=== PATIENT | male | born 1950 | race Caucasian/White ===

== ENCOUNTER → 2020-03-05 11:23 | Outpatient (CLI) | payer OTHER, MEDICAID, SELFPAY ==
--- NOTE | 2020-03-05 11:28 | DI.RAD.S_ITS ---
PROCEDURE: XR THORACIC SPINE 3V INDICATIONS: update imaging TECHNIQUE: 3 views of the thoracic spine were acquired. COMPARISON: None. FINDINGS: Bones: No fractures or dislocations. No suspicious bony lesions. 12 pairs of ribs are noted, and appear intact where visualized. There is leftward curvature of the thoracic spine. No vertebral body height loss. No subluxation. Anterior osteophytes are seen at multiple levels. Soft tissues: No paravertebral stripe thickening. IMPRESSION: 1. 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 2. Leftward curvature of the thoracic spine. Dictated by: Dago Benson M.D. on 03/05/2020 at 12:40 Approved by: Dago Benson M.D. on 03/05/2020 at 12:42
== END ==
PROVIDERS: Referring Provider Physical Medicine & Rehabilitation; Visit Provider Physical Medicine & Rehabilitation
DX: R07.81 Pleurodynia (principal); M47.814 Spondylosis without myelopathy or radiculopathy, thoracic region; M41.20 Other idiopathic scoliosis, site unspecified; M47.816 Spondylosis without myelopathy or radiculopathy, lumbar region; M48.00 Spinal stenosis, site unspecified
CPT/HCPCS: 72072; 99214

== ENCOUNTER 2020-03-12 17:18 | Emergency (ER) | payer OTHER, MEDICAID, SELFPAY ==
[2020-03-12 17:24] VITALS: BP 211/101; PULSE 129; RESP 24; TEMP 37.1; O2SAT 99
[2020-03-12] MEDS: OXYCODONE/ACETAMINOPHEN 5/325 TABLET 2 TAB PO (18:38)
[2020-03-12] MEDS: KETOROLAC 60 MG/2 ML VIAL 30 MG IM (18:38)
[2020-03-12 19:06] VITALS: BP 178/97; PULSE 107; RESP 16; O2SAT 98
--- NOTE | 2020-03-12 19:07 | ED.DENTAL ---
HPI - Dental/Oral General Chief complaint: Dental/Oral Stated complaint: [place] Hanging, Lump On Jaw, Didn't Sleep Time Seen by Provider: 03/12/20 18:10 Source: patient Mode of arrival: Ambulatory History of Present Illness HPI Narrative: 69-year-old gentleman with a history of hypertension presents with severe pain to a tooth that 3 years ago was crowned. Pain started yesterday and has progressively gotten worse. He is exquisitely tender to any type of touch, heat, cold and the pain radiates to his upper maxilla and back to his temporomandibular joint. There is no obvious swelling but he does report and on taste coming from the area. He describes no fevers, he has been having difficulty eating due to pain. No abdominal pain, vomiting, diarrhea. He has an appointment scheduled with seeing our dental clinic in the next 1-2 days Related Data Home Medications Medication Instructions Recorded Confirmed amlodipine 5 mg tablet 5 mg PO DAILY 03/05/20 lisinopril 40 mg tablet 40 mg PO DAILY 03/05/20 Previous Rx's Medication Instructions Recorded hydroxyzine pamoate 25 mg capsule 25 mg PO BID PRN #60 cap 03/05/20 meloxicam 7.5 mg tablet 15 mg PO BID #60 tab 03/05/20 amoxicillin 500 mg PO TID #21 cap 03/12/20 oxycodone-acetaminophen 1 tab PO Q6H PRN 7 Days #20 tab 03/12/20 Allergies Allergy/AdvReac Type Severity Reaction Status Date / Time No Known Drug Allergies Allergy Unverified 03/05/20 13:38 Review of Systems Review of Systems ROS Unobtainable: All systems reviewed & are unremarkable except as noted in HPI and below Patient History Medical History Facet arthropathy, lumbar Fractures High blood cholesterol High blood pressure Multilevel foraminal stenosis Scoliosis (and kyphoscoliosis), idiopathic Social History Smoking Status: Never smoker Smoking Status: Never smoker Exam Narrative Exam Narrative: General: Alert appropriate in no acute distress HEENT: Tooth 3. With a crown in place exquisitely tender to touch, no surrounding abscess. Tender over the right maxillary surface and into the right TMJ without fluctuance or erythema. He has mild right submandibular adenopathy Respiratory: Able to speak in full sentences, no obvious respiratory distress Skin: No obvious rashes, warm and dry Neurologic: Grossly intact no obvious asymmetries or abnormalities Psych, appropriate insight and affect, cooperative Initial Vital Signs Initial Vital Signs: Vital Signs Temperature 98.8 F 03/12/20 17:24 Pulse Rate 129 H 03/12/20 17:24 Respiratory Rate 24 03/12/20 17:24 Blood Pressure 211/101 H 03/12/20 17:24 Pulse Oximetry 99 03/12/20 17:24 Course Orders Ordered: Discontinued Medications Ketorolac Tromethamine (Ketorolac 60 Mg/2 Ml Vial) 30 mg IM NOW ONE Stop: 03/12/20 18:34 Last Admin: 03/12/20 18:38 Dose: 30 mg Documented by: STEFF Oxycodone/Acetaminophen (Oxycodone/Acetaminophen 5/325 Tablet) 2 tab PO NOW ONE Stop: 03/12/20 18:34 Last Admin: 03/12/20 18:38 Dose: 2 tab Documented by: STEFF Vital Signs Vital signs: Vital Signs - 8 hr 03/12/20 17:24 03/12/20 19:06 Temperature 98.8 F Pulse Rate 129 H 107 H Respiratory Rate 24 16 Blood Pressure 211/101 H 178/97 H Pulse Oximetry 99 98 MDM - Dental/Oral MDM Narrative Medical decision making narrative: Dental pain tooth 3. Suggesting infection with root damage given the exquisite tenderness to any type of touch, heat, cold. Significantly elevated blood pressure and heart rate secondary to the severity of his pain. After treating his pain vital signs did improve slightly. He notes that he did take his usual blood pressure medications today. He started on amoxicillin and given a prescription for Percocet and encouraged to keep his appointment with see [facility] scheduled Discharge Plan Departure Patient Disposition: Home Clinical Impression: Toothache Instructions: DI for Dental Pain Activity Restrictions/Additional Instructions: Using 400 mg of ibuprofen (2 [id number] pills) and 1 Tylenol every 6 hours can be very helpful in controlling pain. For severe pain you can use to ibuprofen and 1 Percocet and for over the top pain you can use 2 Percocet. Please complete the course of amoxicillin Absolutely keep your appointment with see [facility] to definitively diagnose and treat your tooth pain. 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 Prescriptions: New amoxicillin 500 mg capsule 500 mg PO TID Qty: 21 RF: 0 oxycodone-acetaminophen 5-325 mg tablet 1 tab PO Q6H PRN (Reason: pain) 7 Days Qty: 20 RF: 0 No Action lisinopril 40 mg tablet 40 mg PO DAILY RF: 0 amlodipine 5 mg tablet 5 mg PO DAILY RF: 0 hydroxyzine pamoate [Vistaril] 25 mg capsule 25 mg PO BID PRN (Reason: pain (scale score 4-6)) Qty: 60 RF: 1 meloxicam 7.5 mg tablet 15 mg PO BID Qty: 60 RF: 2 Referrals: Katya Stevens MD [Primary Care Provider] -
== END 2020-03-12 19:18 | disposition home or self-care (01) ==
PROVIDERS: Emergency Provider Emergency Medicine; PCP Internal Medicine
DX: K08.89 Other specified disorders of teeth and supporting structures (principal); I10 Essential (primary) hypertension
CPT/HCPCS: 96372; 99281; 99283; J1885

== ENCOUNTER 2020-03-14 20:44 | Emergency (ER) | payer OTHER, MEDICAID, SELFPAY ==
[2020-03-14 20:51] VITALS: BP 198/93; PULSE 98; RESP 18; TEMP 36.7; O2SAT 98; BMI 26.9
--- NOTE | 2020-03-14 21:35 | ED.BACK ---
HPI - Back Pain/Injury General Chief Complaint: Back Pain/Injury Stated Complaint: Low Back Pain Time Seen by Provider: 03/14/20 20:59 Source: patient and EMS Mode of arrival: EMS Limitations: no limitations History of Present Illness HPI Narrative: 69-year-old male who is here for her left sign in or back discomfort. He states that it feels like he is having muscle cramps. No urinary symptoms. Has had back discomfort the past and does see a specialist for this. He states that he did fall to his knees earlier today but no other injuries. Has not taken anything for symptoms prior to arrival Related Data Home Medications Medication Instructions Recorded Confirmed amlodipine 5 mg tablet 5 mg PO DAILY 03/05/20 lisinopril 40 mg tablet 40 mg PO DAILY 03/05/20 Previous Rx's Medication Instructions Recorded hydroxyzine pamoate 25 mg capsule 25 mg PO BID PRN #60 cap 03/05/20 meloxicam 7.5 mg tablet 15 mg PO BID #60 tab 03/05/20 amoxicillin 500 mg PO TID #21 cap 03/12/20 oxycodone-acetaminophen 1 tab PO Q6H PRN 7 Days #20 tab 03/12/20 cyclobenzaprine 10 mg PO TID PRN #14 tab 03/14/20 Allergies Allergy/AdvReac Type Severity Reaction Status Date / Time No Known Drug Allergies Allergy Unverified 03/05/20 13:38 Review of Systems Constitutional Constitutional: Denies fever(s) Cardiovascular Cardiovascular: Denies chest pain and Denies dyspnea Respiratory Respiratory: Denies dyspnea Musculoskeletal Musculoskeletal: Reports back pain and Denies tingling Integumentary/Breasts Skin/Breast: Denies rash Neurologic Neurologic: Denies tingling and Denies paresthesias Hematologic/Lymphatic On Anticoagulants: No Allergic/Immunologic Allergic/Immunologic: Denies urticaria Patient History Medical History Facet arthropathy, lumbar Fractures High blood cholesterol High blood pressure Multilevel foraminal stenosis Scoliosis (and kyphoscoliosis), idiopathic Social History Smoking Status: Never smoker Smoking Status: Never smoker Substance Use Type: does not use Exam Initial Vital Signs Initial Vital Signs: Vital Signs Temperature 98.0 F 03/14/20 20:51 Pulse Rate 98 H 03/14/20 20:51 Respiratory Rate 18 03/14/20 20:51 Blood Pressure 198/93 H 03/14/20 20:51 Pulse Oximetry 98 03/14/20 20:51 Const General: cooperative Limitations: mental status not altered HENMT Head: normal to inspection and normocephalic Back/Spine/Pelvis Thoracic/Lumbar Spine: paraspinal tenderness (Left side with muscle fullness), No thoracic spinal tenderness and No lumbar spinal tenderness Skin Lesions: no lesions Rashes: no rashes Neuro General: patient alert and patient awake Extrem General: capillary refill normal Psych Appearance: grossly normal Course Orders Ordered: Discontinued Medications Cyclobenzaprine HCl (Cyclobenzaprine 10 Mg Tablet) 10 mg PO NOW ONE Stop: 03/14/20 21:36 Last Admin: 03/14/20 21:44 Dose: 10 mg Documented by: CORINNA Cyclobenzaprine HCl (Cyclobenzaprine 10 Mg Tablet) 10 mg PO NOW ONE Stop: 03/14/20 21:50 Last Admin: 03/14/20 21:52 Dose: Not Given Documented by: CORINNA Cyclobenzaprine HCl (Cyclobenzaprine 10 Mg Prepack) 1 bottle MISC SEEINSTR ONE Stop: 03/14/20 22:38 Last Admin: 03/14/20 22:51 Dose: 1 bottle Documented by: GENNA Hydromorphone HCl (Hydromorphone 1 Mg Inj) 1 mg IV NOW ONE Stop: 03/14/20 21:36 Last Admin: 03/14/20 21:45 Dose: 1 mg Documented by: CORINNA Vital Signs Vital signs: Vital Signs - 8 hr 03/14/20 20:51 03/14/20 21:59 03/14/20 22:00 Temperature 98.0 F Pulse Rate 98 H 78 87 Respiratory Rate 18 Blood Pressure 198/93 H Pulse Oximetry 98 98 98 03/14/20 22:51 03/14/20 22:52 03/14/20 22:55 Temperature Pulse Rate 92 H 92 H 89 Respiratory Rate 14 Blood Pressure 163/90 H Pulse Oximetry 97 96 99 MDM - Back Pain/Injury MDM Narrative Medical decision making narrative: Acute on chronic lower back pain with tenderness along the paraspinal region on the left with muscle fullness. Low suspicion for fracture. Low suspicion for cauda quadrant. Was given medication here in the ER and he did report some improvement of symptoms he was able to ambulate to the bathroom. He was given return precautions and follow-up instructions. He expressed understanding and agreement. Discharge Plan Departure Patient Disposition: Home Clinical Impression: Back muscle spasm Instructions: DI for Back Spasm Activity Restrictions/Additional Instructions: Continue all of your medications as directed. The prescription you were given this evening should help with your symptoms. Contact your primary provider for follow-up. Return emergency department for any new or worsening symptoms Prescriptions: New cyclobenzaprine 10 mg tablet 10 mg PO TID PRN (Reason: muscle spasm) Qty: 14 RF: 0 No Action amoxicillin 500 mg capsule 500 mg PO TID Qty: 21 RF: 0 oxycodone-acetaminophen 5-325 mg tablet 1 tab PO Q6H PRN (Reason: pain) 7 Days Qty: 20 RF: 0 lisinopril 40 mg tablet 40 mg PO DAILY RF: 0 amlodipine 5 mg tablet 5 mg PO DAILY RF: 0 hydroxyzine pamoate [Vistaril] 25 mg capsule 25 mg PO BID PRN (Reason: pain (scale score 4-6)) Qty: 60 RF: 1 meloxicam 7.5 mg tablet 15 mg PO BID Qty: 60 RF: 2 Referrals: Katya Stevens MD [Primary Care Provider] -
[2020-03-14] MEDS: CYCLOBENZAPRINE 10 MG TABLET PO (21:44)
[2020-03-14] MEDS: HYDROMORPHONE 1 MG INJ IV (21:45)
[2020-03-14 21:59] VITALS: PULSE 78; O2SAT 98
[2020-03-14 22:00] VITALS: PULSE 87; O2SAT 98
[2020-03-14 22:51] VITALS: PULSE 92; O2SAT 97
[2020-03-14] MEDS: CYCLOBENZAPRINE 10 MG PREPACK 1 BOTTLE MISC (22:51)
[2020-03-14 22:52] VITALS: BP 163/90; PULSE 92; O2SAT 96
[2020-03-14 22:55] VITALS: PULSE 89; RESP 14; O2SAT 99
== END 2020-03-14 23:25 | disposition home or self-care (01) ==
PROVIDERS: Emergency Provider Emergency Medicine; PCP Internal Medicine
DX: M62.830 Muscle spasm of back (principal); I10 Essential (primary) hypertension
CPT/HCPCS: 96374; 99281; 99284; J1170

== ENCOUNTER 2020-03-15 06:50 | Emergency (ER) | payer OTHER, MEDICAID, SELFPAY ==
[2020-03-15 07:00] VITALS: BP 177/99; PULSE 98; RESP 20; TEMP 36.9; O2SAT 98; BMI 26.7
--- NOTE | 2020-03-15 07:11 | ED.BACK ---
HPI - Back Pain/Injury General Chief Complaint: Back Pain/Injury Stated Complaint: Left lower back pain Time Seen by Provider: 03/15/20 07:05 Source: patient, EMS and old records reviewed Limitations: no limitations History of Present Illness HPI Narrative: This is a 69-year-old male who comes to the emergency department with acute on chronic left lower back pain. Patient states he has had symptoms for many years. Typically his pain sort of comes up his leg from the upper leg into the buttock hip area and into the back. Patient states that he did move multiple cinder blocks yesterday which he thinks exacerbated his symptoms. They have been much more controlled until yesterday. He was seen last night he had a shot of pain medication and was given oral muscle relaxer. He states the pain medication here was very helpful, he did not have much improvement with oral muscle relaxer at home. He states he does not typically take pain medication on a regular basis. He has been following with Dr. espana and is scheduled to have a nerve ablation but this has been delayed for the past 9 months secondary to the pandemic. Patient states that he has not had fevers, no chills, no cold cough or congestion, he denies any chest pain or shortness breath, he denies any GI or urinary symptoms. Denies any incontinence of bowel or bladder. He denies any numbness, tingling or weakness. He states he was unable to sleep overnight. He states this is typical location of his pain and typical type symptoms but more intense than they have been recently. He has had episodes similar to this in the past and defers any further workup. Related Data Home Medications Medication Instructions Recorded Confirmed amlodipine 5 mg tablet 5 mg PO DAILY 03/05/20 lisinopril 40 mg tablet 40 mg PO DAILY 03/05/20 Previous Rx's Medication Instructions Recorded hydroxyzine pamoate 25 mg capsule 25 mg PO BID PRN #60 cap 03/05/20 meloxicam 7.5 mg tablet 15 mg PO BID #60 tab 03/05/20 amoxicillin 500 mg PO TID #21 cap 03/12/20 oxycodone-acetaminophen 1 tab PO Q6H PRN 7 Days #20 tab 03/12/20 cyclobenzaprine 10 mg PO TID PRN #14 tab 03/14/20 oxycodone 5 mg PO Q6H PRN #10 tab 03/15/20 Allergies Allergy/AdvReac Type Severity Reaction Status Date / Time No Known Drug Allergies Allergy Unverified 03/05/20 13:38 Review of Systems Review of Systems ROS Unobtainable: All systems reviewed & are unremarkable except as noted in HPI and below Patient History Medical History Facet arthropathy, lumbar Fractures High blood cholesterol High blood pressure Multilevel foraminal stenosis Scoliosis (and kyphoscoliosis), idiopathic Social History Smoking Status: Never smoker Smoking Status: Never smoker Substance Use Type: does not use Exam Narrative Exam Narrative: GENERAL: Alert and oriented x three, well nourished male. HEENT: Head normocephalic, atraumatic, EOMI, pupils reactive, face symmetric, moist mucous membranes NECK: Supple, full range of motion CARDIOVASCULAR: Regular rate and rhythm without murmurs, rubs or gallops. RESPIRATORY: Breath sounds equal bilaterally, no wheezes rales or rhonchi. ABDOMEN: Soft, nontender. Normoactive bowel sounds all 4 quadrants. No guarding or rebound, rigidity, no mass : No CVA tenderness BACK: No cervical, thoracic or lumbar vertebral point tenderness. Patient has tenderness in left lower back. Patient has mildly range of motion. Muscle strength is 5/5 in lower extremities, DTRs are 2/4 and lower extremities. Dorsalis pedis and tibialis pulses are 2+ and lower extremities. Sensation is intact in the lower extremities. EXTREMITIES: Normal range of motion, no clubbing or edema. Neurovascularly intact NEUROLOGICAL: Cranial nerves II through XII grossly intact. Moving all extremities SKIN: Warm, dry, no petechiae, no rashes or lesions. Initial Vital Signs Initial Vital Signs: Vital Signs Temperature 98.5 F 03/15/20 07:00 Pulse Rate 98 H 03/15/20 07:00 Respiratory Rate 20 03/15/20 07:00 Blood Pressure 177/99 H 03/15/20 07:00 Pulse Oximetry 98 03/15/20 07:00 Course Orders Ordered: Discontinued Medications Hydromorphone HCl (Hydromorphone 1 Mg Inj) 1 mg IM NOW ONE Stop: 03/15/20 07:23 Last Admin: 03/15/20 07:28 Dose: 1 mg Documented by: Reevaluation(s) Reevaluation #1: Patient feels significantly improved. Ambulating in the room. Sitting up eating breakfast. Time: 08:14 Vital Signs Vital signs: Vital Signs - 8 hr 03/15/20 07:00 Temperature 98.5 F Pulse Rate 98 H Respiratory Rate 20 Blood Pressure 177/99 H Pulse Oximetry 98 MDM - Back Pain/Injury MDM Narrative Medical decision making narrative: 69-year-old male presents with acute on chronic left lower back pain similar to prior episodes in the past. Patient has been able to have definitive treatment secondary to the pandemic. He had exacerbating event yesterday after moving multiple cinder blocks and has had a flare of his chronic pain. Patient had relief yesterday here in the emergency department but symptoms returned. This is his 2nd visit in 12 hours and we discussed doing further workup but patient defers very politely. Patient had improvement here in the department discussed doing a short course of oral pain medication. [place] database shows he had #6 tabs on 03/11/19, patient had not filled any prior narcotics since 12/21/19, he was taking narcotics regularly from PCP and appears ER visits prior to this. Discharge Plan Departure Patient Disposition: Home Clinical Impression: Back pain Instructions: DI for Back Spasm Activity Restrictions/Additional Instructions: Follow up with your physician. I hope you are able to get your intervention with Dr. Santillan as soon as possible. Take pain medication as prescribed, this medication can make you sleepy do not drive, perform hazardous activities or make any major decisions while taking it. Narcotic pain medication will make you constipated, I recommend drinking plenty of fluids and taking a stool softener 1-2 times daily while taking narcotics until stools are soft and regular. Prescription to [facility] You may take this medication with the flexeril you were prescribed last night if you find it helpful. Return to the ER for fevers, rapidly worsening pain, new weakness, numbness or loss of sensation, inability to ambulate, passing out, new chest pain or shortness of breath or other new or concerning symptoms. Prescriptions: New oxycodone 5 mg tablet 5 mg PO Q6H PRN (Reason: pain) Qty: 10 RF: 0 No Action amoxicillin 500 mg capsule 500 mg PO TID Qty: 21 RF: 0 oxycodone-acetaminophen 5-325 mg tablet 1 tab PO Q6H PRN (Reason: pain) 7 Days Qty: 20 RF: 0 cyclobenzaprine 10 mg tablet 10 mg PO TID PRN (Reason: muscle spasm) Qty: 14 RF: 0 lisinopril 40 mg tablet 40 mg PO DAILY RF: 0 amlodipine 5 mg tablet 5 mg PO DAILY RF: 0 hydroxyzine pamoate [Vistaril] 25 mg capsule 25 mg PO BID PRN (Reason: pain (scale score 4-6)) Qty: 60 RF: 1 meloxicam 7.5 mg tablet 15 mg PO BID Qty: 60 RF: 2 Referrals: Katya Stevens MD [Primary Care Provider] -
[2020-03-15] MEDS: HYDROMORPHONE 1 MG INJ IM (07:28)
--- NOTE | 2020-03-15 07:28 | PC.NURSE ---
I went to give pt his IM injection and he was up and ambulating around the room with a steady gait.
--- NOTE | 2020-03-15 08:10 | PC.NURSE ---
Pt sitting up on the side of the bed eating breakfast.
[2020-03-15 08:18] VITALS: BP 196/99; PULSE 89; RESP 16; O2SAT 100
== END 2020-03-15 08:19 | disposition home or self-care (01) ==
PROVIDERS: Emergency Provider Emergency Medicine; PCP Internal Medicine
DX: M54.5 Low back pain (principal); I10 Essential (primary) hypertension
CPT/HCPCS: 96372; 99281; 99283; J1170

== ENCOUNTER 2020-03-19 22:43 | Emergency (ER) | payer OTHER, MEDICAID, SELFPAY ==
[2020-03-19 22:46] VITALS: BP 198/105; PULSE 83; O2SAT 99
[2020-03-19 22:50] VITALS: BP 198/105; PULSE 84; RESP 18; TEMP 36.7; O2SAT 99; BMI 25.0
[2020-03-19 23:00] VITALS: BP 148/87; PULSE 78; O2SAT 98
--- NOTE | 2020-03-19 23:02 | ED.BACK ---
HPI - Back Pain/Injury General Chief Complaint: Back Pain/Injury Stated Complaint: Back Pain Time Seen by Provider: 03/19/20 23:02 Source: patient and EMS Limitations: no limitations History of Present Illness HPI Narrative: This is a 69-year-old male comes emergency department with complaint of acute on chronic lower back pain. Patient states it is his typical left lower pain but also on the right side. He states it is radiating up his back as well he denies radiation down his legs patient states he has not had any additional exacerbating factors. He states he did take an oxycodone prior to arriving. He came via EMS which he states is because the starter on his car is not working. He denies fevers, he denies chills. He has denies chest pain or shortness of breath denies any syncope. Denies any abdominal pain. No bowel or bladder incontinence. No other urinary or GI issues. Patient states he is supposed to follow up Dr. Santillan for intervention but was delayed from the pandemic. Patient states that his symptoms are typical except for the radiation up the right side which is atypical. Patient states he was following with Katya Manjarrez and was feeling prescriptions regularly until December for tramadol. Patient states he had proven of symptoms and then over the last several weeks has had this recent flare. Related Data Home Medications Medication Instructions Recorded Confirmed amlodipine 5 mg tablet 5 mg PO DAILY 03/05/20 lisinopril 40 mg tablet 40 mg PO DAILY 03/05/20 Previous Rx's Medication Instructions Recorded hydroxyzine pamoate 25 mg capsule 25 mg PO BID PRN #60 cap 03/05/20 meloxicam 7.5 mg tablet 15 mg PO BID #60 tab 03/05/20 amoxicillin 500 mg PO TID #21 cap 03/12/20 cyclobenzaprine 10 mg PO TID PRN #14 tab 03/14/20 oxycodone 5 mg PO Q6H PRN #10 tab 03/15/20 diazepam [Valium] 10 mg PO TID PRN 1 Days #10 tab 03/20/20 Allergies Allergy/AdvReac Type Severity Reaction Status Date / Time No Known Drug Allergies Allergy Unverified 03/05/20 13:38 Review of Systems Review of Systems ROS Unobtainable: All systems reviewed & are unremarkable except as noted in HPI and below Patient History Medical History Facet arthropathy, lumbar Fractures High blood cholesterol High blood pressure Multilevel foraminal stenosis Scoliosis (and kyphoscoliosis), idiopathic Social History Smoking Status: Never smoker Smoking Status: Never smoker alcohol intake frequency: 0-2 drinks per day Substance Use Type: does not use Exam Narrative Exam Narrative: GENERAL: Alert and oriented x three, well-nourished male in moderate distress. HEENT: Head normocephalic, atraumatic, EOMI, pupils reactive, face symmetric, moist mucous membranes NECK: Supple, full range of motion CARDIOVASCULAR: Regular rate and rhythm without murmurs, rubs or gallops. RESPIRATORY: Breath sounds equal bilaterally, no wheezes rales or rhonchi. ABDOMEN: Soft, nontender. Normoactive bowel sounds all 4 quadrants. No guarding or rebound, rigidity, no mass : No CVA tenderness BACK: No cervical, thoracic or lumbar vertebral point tenderness. Patient has mildly decreased range of motion. Patient has generalized tenderness of lower back. Patient's gait is not tested but stood to use urinal. Muscle strength is 5/5 in lower extremities, DTRs is mildly hypereflexic right greater than left lower extremities. Dorsalis pedis and tibialis pulses are 2+ and lower extremities. Sensation is intact in the lower extremities. EXTREMITIES: Normal range of motion, no clubbing or edema. Neurovascularly intact NEUROLOGICAL: Cranial nerves II through XII grossly intact. Moving all extremities SKIN: Warm, dry, no petechiae, no rashes or lesions. Initial Vital Signs Initial Vital Signs: Vital Signs Pulse Rate 83 03/19/20 22:46 Blood Pressure 198/105 H 03/19/20 22:46 Pulse Oximetry 99 03/19/20 22:46 Course Orders Ordered: ED Orders 03/19/20 23:59 XR lumbar spine 2-3V Stat Discontinued Medications Diazepam (Diazepam 5 Mg Tablet) 10 mg PO NOW ONE Stop: 03/20/20 00:00 Last Admin: 03/20/20 00:05 Dose: 10 mg Documented by: MAXIME Oxycodone HCl (Oxycodone Ir 5 Mg Tablet) 10 mg PO NOW ONE Stop: 03/20/20 00:00 Last Admin: 03/20/20 00:05 Dose: 10 mg Documented by: MAXIME Vital Signs Vital signs: Vital Signs - 8 hr 03/19/20 22:46 03/19/20 22:50 03/19/20 23:00 Temperature 98.0 F Pulse Rate 83 84 78 Respiratory Rate 18 Blood Pressure 198/105 H 198/105 H 148/87 H Pulse Oximetry 99 99 98 03/19/20 23:30 03/20/20 00:54 Temperature Pulse Rate 72 69 Respiratory Rate 14 Blood Pressure 150/89 H 161/93 H Pulse Oximetry [address] [facility] - Back Pain/Injury Imaging Data Lumbar spine x-ray: Radiologist's Impression: No acute fracture dislocation noted. Multilevel moderate degenerative change noted. 7 mm anterolisthesis L4-L5. Dextroscoliosis noted. No radiopaque fork foreign bodies demonstrated. [facility] Narrative Medical decision making narrative: 69-year-old male who comes with acute on chronic back pain. Patient has been seen 3 times in the last 2 weeks for similar symptoms although slightly different pattern today. Patient is willing to include some additional imaging today as he has not had improvement of his symptoms. [place] [employer] shows last fills were for #36 tabs total from 3 providers since 03/11/20. Patient does have recent visit with Dr. Santillan on 03/05/20 with prescription for meloxicam/hdyroxyzine and plan for Lumbar spine MRI. With patient's rapidly worsening symptoms Lspine to rule out lytic lesions or other concerning pathology is negative. Patient does have degenerative changes and old films from thoracic xray also demonstrate these. Patient deferred IM pain medication initially, on recheck patient is 4/10 and feels ready to d/c home. Discharge Plan Departure Patient Disposition: Home Clinical Impression: Acute exacerbation of chronic low back pain Instructions: Acupuncture for Low Back Pain Activity Restrictions/Additional Instructions: Follow up with your physician this week for recheck, I would follow up with Dr. Santillan and [facility] scoliosis department also. You will need to see your physician for any future narcotic refills. Continue to take meloxicam 1 tablet twice daily. Return to the ER for fevers, rapidly worsening symptoms, passing out, new chest pain or shortness of breath, persistent vomiting, loss of bowel or bladder control inability your extremities or other new or concerning symptoms. Prescriptions: New diazepam [Valium] 10 mg tablet 10 mg PO TID PRN (Reason: muscle spasm) 1 Days Qty: 10 RF: 0 No Action amoxicillin 500 mg capsule 500 mg PO TID Qty: 21 RF: 0 oxycodone 5 mg tablet 5 mg PO Q6H PRN (Reason: pain) Qty: 10 RF: 0 cyclobenzaprine 10 mg tablet 10 mg PO TID PRN (Reason: muscle spasm) Qty: 14 RF: 0 lisinopril 40 mg tablet 40 mg PO DAILY RF: 0 amlodipine 5 mg tablet 5 mg PO DAILY RF: 0 hydroxyzine pamoate [Vistaril] 25 mg capsule 25 mg PO BID PRN (Reason: pain (scale score 4-6)) Qty: 60 RF: 1 meloxicam 7.5 mg tablet 15 mg PO BID Qty: 60 RF: 2 Referrals: Katya Stevens MD [Primary Care Provider] -
[2020-03-19 23:30] VITALS: BP 150/89; PULSE 72; O2SAT 98
--- NOTE | 2020-03-19 23:59 | DI.RAD.S_ITS ---
PROCEDURE: XR LUMBAR SPINE 2-3V INDICATIONS: back pain, acute on chronic TECHNIQUE: 3 views of the lumbar spine were acquired. COMPARISON: [facility] [place], [place], XR LUMBAR SPINE 2 OR 3 VIEWS, 12/29/2019, 15:41. FINDINGS: Bones: Transitional anatomy with 6 lumbar type [id number] vertebral bodies and non rudimentary S1-S2 disc. For purposes of this dictation the 6 lumbar type [id number] vertebral bodies will be designated L1 through S1 with the last non-rudimentary disc designated S1-S2.. Convex right thoracolumbar spine scoliosis is stable compared to the prior exam. Mild L5-S1 anterolisthesis. Trace L1-L2 and L2-L3 retrolisthesis. Multilevel degenerative disc disease and facet arthropathy. No vertebral body compression fractures. No suspicious bony lesions. Soft tissues: Overlying bowel gas pattern is normal. No suspicious soft tissue calcifications. IMPRESSION: 1. Transitional anatomy. 2. Multilevel degenerative disc disease and facet arthropathy. 3. No fracture. No acute osseous lesion. If symptoms and/or clinical suspicion for pathology persists, evaluation with MRI should be considered for further assessment. Dictated by: Juliet May MD, PhD on 03/20/2020 at 8:45 Approved by: Juliet May MD, PhD on 03/20/2020 at 8:49
[2020-03-20] MEDS: diazePAM 5 MG TABLET 10 MG PO (00:05)
[2020-03-20] MEDS: OXYCODONE IR 5 MG TABLET 10 MG PO (00:05)
[2020-03-20 00:54] VITALS: BP 161/93; PULSE 69; RESP 14; O2SAT 96
== END 2020-03-20 00:59 | disposition home or self-care (01) ==
PROVIDERS: Emergency Provider Emergency Medicine; PCP Internal Medicine
DX: M54.5 Low back pain (principal); I10 Essential (primary) hypertension; E78.5 Hyperlipidemia, unspecified
CPT/HCPCS: 72100; 99283

== ENCOUNTER 2020-03-21 00:59 | Emergency (ER) | payer OTHER, MEDICAID, SELFPAY ==
[2020-03-21 01:03] VITALS: BP 208/113; PULSE 80; RESP 18; TEMP 36.6; O2SAT 100; BMI 25.1
[2020-03-21 01:29] VITALS: BP 208/113; PULSE 82; RESP 16; O2SAT 100
[2020-03-21 01:34] VITALS: PULSE 81; O2SAT 100
[2020-03-21 02:08] VITALS: PULSE 84; O2SAT 91
--- NOTE | 2020-03-21 02:34 | ED.BACK ---
HPI - Back Pain/Injury General Chief Complaint: Back Pain/Injury Stated Complaint: Back Pain Time Seen by Provider: 03/21/20 02:20 Source: patient and EMS Limitations: no limitations History of Present Illness HPI Narrative: Patient brought in by ambulance from home. Complains again of recurrence chronic back pain. No new injuries. This is patient's 5th visit here in the past 1 week for pain. First visit for tooth pain. Last 3 visits for exacerbation of lower and mid back pain. Had x-rays of thoracic and lumbar spines. Patient is to see family doctor this for scheduling outpatient MRI of his spine. And then referral to art specialist for surgery. Patient denies denies any chest pain or abdominal pain or syncope. No numbness tingling weakness in the limbs. Denies any history of chest or abdominal aneurysm. Patient states has had longstanding back pain due to his occupation as well as injury to his left upper extremity years ago that he compensated with other muscles including his back. Has been many years since MRI of the spine. No previous surgeries. No bowel or bladder incontinence or retention. No saddle paresthesia. No limb weakness numbness. No history of diabetes. Denies any IV drug use. No fever chills no cough cold congestion. No nausea vomiting or diarrhea. No history of spinal infections. Blood pressure noted. He takes his blood pressure medications in the morning. Below are notes from previous visits. [address] [id number] Report Patient: Krzysztof Zimmerman WMR#: [id number]: 1950Acct:[id number]/Sex: 69 / M Date of Service: 03/19/20ER Physician: Renee Bliss D.O. HPI - Back Pain/Injury General Chief Complaint: Back Pain/Injury Stated Complaint: Back Pain Time Seen by Provider: 03/19/20 23:02 Source: patient and EMS Limitations: no limitations History of Present Illness HPI Narrative: This is a 69-year-old male comes emergency department with complaint of acute on chronic lower back pain. Patient states it is his typical left lower pain but also on the right side. He states it is radiating up his back as well he denies radiation down his legs patient states he has not had any additional exacerbating factors. He states he did take an oxycodone prior to arriving. He came via EMS which he states is because the starter on his car is not working. He denies fevers, he denies chills. He has denies chest pain or shortness of breath denies any syncope. Denies any abdominal pain. No bowel or bladder incontinence. No other urinary or GI issues. Patient states he is supposed to follow up Dr. Santillan for intervention but was delayed from the pandemic. Patient states that his symptoms are typical except for the radiation up the right side which is atypical. Patient states he was following with Katya Manjarrez and was feeling prescriptions regularly until December for tramadol. Patient states he had proven of symptoms and then over the last several weeks has had this recent flare. [address] [id number] Report Patient: Krzysztof Zimmerman WMR#: [id number]: 1950Acct:[id number]/Sex: 69 / M Date of Service: 03/15/20ER Physician: Renee Bliss D.O. HPI - Back Pain/Injury General Chief Complaint: Back Pain/Injury Stated Complaint: Left lower back pain Time Seen by Provider: 03/15/20 07:05 Source: patient, EMS and old records reviewed Limitations: no limitations History of Present Illness HPI Narrative: This is a 69-year-old male who comes to the emergency department with acute on chronic left lower back pain. Patient states he has had symptoms for many years. Typically his pain sort of comes up his leg from the upper leg into the buttock hip area and into the back. Patient states that he did move multiple cinder blocks yesterday which he thinks exacerbated his symptoms. They have been much more controlled until yesterday. He was seen last night he had a shot of pain medication and was given oral muscle relaxer. He states the pain medication here was very helpful, he did not have much improvement with oral muscle relaxer at home. He states he does not typically take pain medication on a regular basis. He has been following with Dr. espana and is scheduled to have a nerve ablation but this has been delayed for the past 9 months secondary to the pandemic. Patient states that he has not had fevers, no chills, no cold cough or congestion, he denies any chest pain or shortness breath, he denies any GI or urinary symptoms. Denies any incontinence of bowel or bladder. He denies any numbness, tingling or weakness. He states he was unable to sleep overnight. He states this is typical location of his pain and typical type symptoms but more intense than they have been recently. He has had episodes similar to this in the past and defers any further workup. [address] [address]Lsvpcuvny Report Patient: Krzysztof Zimmerman WMR#: [id number]: 1950Acct:[id number]/Sex: 69 / M Date of Service: 03/14/20ER Physician: James Workman D.O. HPI - Back Pain/Injury General Chief Complaint: Back Pain/Injury Stated Complaint: Low Back Pain Time Seen by Provider: 03/14/20 20:59 Source: patient and EMS Mode of arrival: EMS Limitations: no limitations History of Present Illness HPI Narrative: 69-year-old male who is here for her left sign in or back discomfort. He states that it feels like he is having muscle cramps. No urinary symptoms. Has had back discomfort the past and does see a specialist for this. He states that he did fall to his knees earlier today but no other injuries. Has not taken anything for symptoms prior to arrival MD Complaint: back pain Related Data Home Medications Medication Instructions Recorded Confirmed amlodipine 5 mg tablet 5 mg PO DAILY 03/05/20 lisinopril 40 mg tablet 40 mg PO DAILY 03/05/20 Previous Rx's Medication Instructions Recorded hydroxyzine pamoate 25 mg capsule 25 mg PO BID PRN #60 cap 03/05/20 meloxicam 7.5 mg tablet 15 mg PO BID #60 tab 03/05/20 amoxicillin 500 mg PO TID #21 cap 03/12/20 cyclobenzaprine 10 mg PO TID PRN #14 tab 03/14/20 oxycodone 5 mg PO Q6H PRN #10 tab 03/15/20 Allergies Allergy/AdvReac Type Severity Reaction Status Date / Time No Known Drug Allergies Allergy Unverified 03/05/20 13:38 Review of Systems Review of Systems Narrative: GENERAL: Denies chills, fatigue, malaise, fever, sweats. HEENT: Denies sinus pain, ear pain, sore throat, difficulty swallowing RESPIRATORY: Denies dyspnea, cough CARDIOVASCULAR: Denies chest pain, palpitations, edema, GASTROINTESTINAL: Denies nausea, vomiting, abdominal pain, diarrhea, constipation, melena. : Denies dysuria, frequency, hematuria MUSCULOSKELETAL: Complains of muscle or bony pain SKIN: Denies rash, skin lesions NEUROLOGIC: Denies weakness, headache, numbness, change in speech, confusion ROS Unobtainable: All systems reviewed & are unremarkable except as noted in HPI and below Patient History Medical History Facet arthropathy, lumbar Fractures High blood cholesterol High blood pressure Multilevel foraminal stenosis Scoliosis (and kyphoscoliosis), idiopathic Social History Smoking Status: Never smoker Smoking Status: Never smoker alcohol intake frequency: 0-2 drinks per day Substance Use Type: does not use Exam Narrative Exam Narrative: GENERAL: patient appears stated age. Well-nourished, well-developed patient, in no distress, not toxic not dyspneic HEAD: Normocephalic. EYES: Pupils equal round and reactive. No scleral icterus. No injection no discharge ENT: Mucous membranes moist. No drooling no tongue elevation no trismus no malocclusion NECK: Trachea midline. Non tender CARDIOVASCULAR: Regular rate and rhythm without murmurs, gallops, or rubs. RESPIRATORY: Clear to auscultation. Breath sounds equal bilaterally. No wheezes, rales, or rhonchi. GASTROINTESTINAL: Abdomen soft, non-tender, nondistended. EXTREMITIES: No gross deformities. BACK: No rash. There is diffuse paralumbar muscle tenderness and spasm as well as mild midline tenderness. Able to log roll himself to the right for exam. Skin visualized. Limited range of motion at the waist otherwise due to pain. Bilateral straight leg raise is 60? with pain NEURO: AOx4. Clear speech no facial droop light touch intact to bilateral face hands and feet. 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 Strong bilateral patellar reflexes. Strong bilateral ankle flexion extension as well as knee flexion extension. Denies any footdrop when he walks SKIN: Warm and dry PSYCH: Not anxious, is cooperative Initial Vital Signs Initial Vital Signs: Vital Signs Temperature 97.9 F 03/21/20 01:03 Pulse Rate 80 03/21/20 01:03 Respiratory Rate 18 03/21/20 01:03 Blood Pressure 208/113 H 03/21/20 01:03 Pulse Oximetry 100 03/21/20 01:03 Course Course Course Narrative: No new issues during course of stay. Pain improved blood pressure improved. Orders Ordered: Discontinued Medications Hydromorphone HCl (Hydromorphone 1 Mg Inj) 1 mg IM NOW ONE Stop: 03/21/20 02:34 Last Admin: 03/21/20 02:41 Dose: 1 mg Documented by: GENNA Lisinopril (Lisinopril 20 Mg Tablet) 40 mg PO NOW ONE Stop: 03/21/20 03:00 Last Admin: 03/21/20 03:02 Dose: Not Given Documented by: GENNA Ondansetron HCl (Ondansetron 4 Mg Odt) 4 mg SL NOW ONE Stop: 03/21/20 02:34 Last Admin: 03/21/20 02:41 Dose: 4 mg Documented by: GENNA Reevaluation(s) Reevaluation #1: Discussed with patient treatment plan any agrees. No more imaging indicated. Patient needs MRI which in he will see his primary care physician this . Up and walking without assist at time of discharge, walking out of the department Vital Signs Vital signs: Vital Signs - 8 hr 03/21/20 01:03 03/21/20 01:29 03/21/20 01:34 Temperature 97.9 F Pulse Rate 80 82 81 Respiratory Rate 18 16 Blood Pressure 208/113 H 208/113 H Pulse Oximetry 100 100 100 03/21/20 02:08 03/21/20 03:00 Temperature Pulse Rate 84 74 Respiratory Rate 16 Blood Pressure 169/98 H Pulse Oximetry 91 100 MDM - Back Pain/Injury Differential Diagnosis Differential diagnosis: Likely lumbar radiculopathy, sciatica and other (Acute on chronic back pain) Medical Records Attestation: I reviewed the patient's medical records. Medical records narrative: [address] [id number] ReportSigned Patient: Krzysztof Zimmerman WMR#: [id number]: 1950Acct:[id number]/Sex: 69 / MDate of Service: 03/05/20Loc: RADAccession Number: [id number] Procedure: XR thoracic spine 3V Ordering Provider: Maulik Vasquez D.O. PROCEDURE: XR THORACIC SPINE 3V INDICATIONS: update imaging TECHNIQUE: 3 views of the thoracic spine were acquired. COMPARISON: None. FINDINGS: Bones: No fractures or dislocations. No suspicious bony lesions. 12 pairs of ribs are noted, and appear intact where visualized. There is leftward curvature of the thoracic spine. No vertebral body height loss. No subluxation. Anterior osteophytes are seen at multiple levels. Soft tissues: No paravertebral stripe thickening. IMPRESSION: 1. 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 2. Leftward curvature of the thoracic spine. Dictated by: Dago Benson M.D. on 03/05/2020 at 12:40 Approved by: Dago Benson M.D. on 03/05/2020 at 12:[address] [id number] ReportSigned Patient: Krzysztof Zimmerman WMR#: [id number]: 1950Acct:[id number]/Sex: 69 / MDate of Service: 03/19/20Loc: EDAccession Number: [id number] Procedure: XR lumbar spine 2-3V Ordering Provider: Renee Bliss D.O. PROCEDURE: XR LUMBAR SPINE 2-3V INDICATIONS: back pain, acute on chronic TECHNIQUE: 3 views of the lumbar spine were acquired. COMPARISON: [facility], XR LUMBAR SPINE 2 OR 3 VIEWS, 12/29/2019, 15:41. FINDINGS: Bones: Transitional anatomy with 6 lumbar type [id number] vertebral bodies and non rudimentary S1-S2 disc. For purposes of this dictation the 6 lumbar type [id number] vertebral bodies will be designated L1 through S1 with the last non-rudimentary disc designated S1-S2.. Convex right thoracolumbar spine scoliosis is stable compared to the prior exam. Mild L5-S1 anterolisthesis. Trace L1-L2 and L2-L3 retrolisthesis. Multilevel degenerative disc disease and facet arthropathy. No vertebral body compression fractures. No suspicious bony lesions. Soft tissues: Overlying bowel gas pattern is normal. No suspicious soft tissue calcifications. IMPRESSION: 1. Transitional anatomy. 2. Multilevel degenerative disc disease and facet arthropathy. 3. No fracture. No acute osseous lesion. If symptoms and/or clinical suspicion for pathology persists, evaluation with MRI should be considered for further assessment. Dictated by: Juliet May MD, PhD on 03/20/2020 at 8:45 Approved by: Juliet May MD, PhD on 03/20/2020 at 8:49 MDM Narrative Medical decision making narrative: Appropriate for discharge home. Blood pressure elevation due to pain level. Please note blood pressure levels on previous for visits as well. This is chronic. Again no chest pain headache neuro complaints abdominal pain. Discharge Plan Departure Patient Disposition: Home Clinical Impression: Acute exacerbation of chronic low back pain Instructions: Managing Chronic Low Back Pain, DI for Degenerative Disc Disease Activity Restrictions/Additional Instructions: No driving or operating machinery today. See your doctor this as scheduled for office recheck and scheduling MRI of your back. Have your blood pressure rechecked as well. Return if worse if any questions or concerns or any fever or bowel or bladder incontinence or retention, or any limb weakness or numbness. Return if unable to walk or stand Prescriptions: No Action amoxicillin 500 mg capsule 500 mg PO TID Qty: 21 RF: 0 oxycodone 5 mg tablet 5 mg PO Q6H PRN (Reason: pain) Qty: 10 RF: 0 cyclobenzaprine 10 mg tablet 10 mg PO TID PRN (Reason: muscle spasm) Qty: 14 RF: 0 lisinopril 40 mg tablet 40 mg PO DAILY RF: 0 amlodipine 5 mg tablet 5 mg PO DAILY RF: 0 hydroxyzine pamoate [Vistaril] 25 mg capsule 25 mg PO BID PRN (Reason: pain (scale score 4-6)) Qty: 60 RF: 1 meloxicam 7.5 mg tablet 15 mg PO BID Qty: 60 RF: 2 Referrals: Katya Stevens MD [Primary Care Provider] -
[2020-03-21] MEDS: HYDROMORPHONE 1 MG INJ IM (02:41)
[2020-03-21] MEDS: ONDANSETRON 4 MG ODT SL (02:41)
[2020-03-21 03:00] VITALS: BP 169/98; PULSE 74; RESP 16; O2SAT 100
== END 2020-03-21 03:23 | disposition home or self-care (01) ==
PROVIDERS: Emergency Provider Emergency Medicine; PCP Internal Medicine
DX: M54.5 Low back pain (principal); M54.6 Pain in thoracic spine
CPT/HCPCS: 96372; 99281; 99283; J1170

== ENCOUNTER 2020-03-26 18:41 | Emergency (ER) | payer OTHER, MEDICAID, SELFPAY ==
[2020-03-26 18:41] VITALS: BP 166/80; PULSE 99; RESP 16; TEMP 36.6; O2SAT 99; BMI 26.4
[2020-03-26] MEDS: KETOROLAC 60 MG/2 ML VIAL 30 MG IM (19:22)
--- NOTE | 2020-03-26 19:52 | PC.NURSE ---
No bowel / bladder concerns. pt has MRI set up for tomorrow, interventional appointment in April. Pt is chronic but worsening.
--- NOTE | 2020-03-26 19:59 | ED.BACK ---
HPI - Back Pain/Injury General Chief Complaint: Back Pain/Injury Stated Complaint: Lower Left back pain Time Seen by Provider: 03/26/20 19:09 Source: patient and EMS History of Present Illness HPI Narrative: 69-year-old gentleman with a history of back pain, hypertension presents with severe exacerbation of his chronic back pain. He had originally been scheduled for a nerve ablation prior to [facility] however the pandemic has complicated all of procedures as an option. He apparently was also told that he needed surgery and has declined this in lieu of ablation. He does have an MRI scheduled for tomorrow to further evaluate the back pain. He currently has a diagnosis for cyclobenzaprine but finds that it is not helpful. [id number] medications have not proved useful. He has had 6 pain related emergency room visits within the last 2 weeks. He states that a single dose of tramadol with meloxicam daily had been extraordinarily helpful in controlling his back pain. He states his care provider does not believe in pain medications at all and has declined to continue provide tramadol. Comes in in severe pain is having difficulty walking laying on the bed and emotionally distraught over the extended persistent pain. Previous lidocaine patches, ibuprofen, muscle relaxers have all proved ineffective in helping control his pain Related Data Home Medications Medication Instructions Recorded Confirmed amlodipine 5 mg tablet 5 mg PO DAILY 03/05/20 lisinopril 40 mg tablet 40 mg PO DAILY 03/05/20 Previous Rx's Medication Instructions Recorded amoxicillin 500 mg PO TID #21 cap 03/12/20 oxycodone 5 mg PO Q6H PRN #10 tab 03/15/20 cyclobenzaprine 10 mg tablet 10 mg PO TID PRN #14 tab 03/26/20 hydroxyzine pamoate 25 mg capsule 25 mg PO BID PRN #60 cap 03/26/20 meloxicam 7.5 mg tablet 15 mg PO BID #60 tab 03/26/20 tramadol 50 mg PO BID PRN #30 tab 03/26/20 tramadol 50 mg PO BID PRN #30 tab 03/26/20 tramadol 50 mg PO BID PRN #30 tab 03/26/20 Allergies Allergy/AdvReac Type Severity Reaction Status Date / Time No Known Drug Allergies Allergy Unverified 03/05/20 13:38 Review of Systems Review of Systems Narrative: Pertinent positive and negative findings as per HPI Remainder of review of systems is otherwise unremarkable for Constitutional: Fevers, chills, weakness ENT: No sore throat, neck pain, ear pain CV: Chest pain, palpitations, dyspnea on exertion Respiratory: Cough, wheeze, dyspnea GI: Nausea, vomiting, diarrhea, change in bowel habits, black or bloody stools : Dysuria, hematuria, flank pain Skin: Rashes, nonhealing lesions Neuro: Syncope, dizziness, tingling, change to bowel or bladder habits or perineal numbness Patient History Medical History Facet arthropathy, lumbar Fractures High blood cholesterol High blood pressure Multilevel foraminal stenosis Scoliosis (and kyphoscoliosis), idiopathic Social History Smoking Status: Never smoker Smoking Status: Never smoker alcohol intake frequency: 0-2 drinks per day Substance Use Type: does not use Exam Narrative Exam Narrative: General: Alert in significant pain with muscle spasms radiating from his back Respiratory: Able to speak in full sentences, no obvious respiratory distress Skin: No obvious rashes, warm and dry Neurologic: Grossly intact no obvious asymmetries or abnormalities Psych, appropriate insight and affect, cooperative Spine: No skin changes, no significant muscle spasm appreciated. No point tenderness along the lower thoracic or lumbar spine. There is no perineal numbness. Patellar reflexes are 3+ bilaterally there is no sensory loss in the lower extremities. Initial Vital Signs Initial Vital Signs: Vital Signs Temperature 98 F 03/26/20 18:41 Pulse Rate 99 H 03/26/20 18:41 Respiratory Rate 16 03/26/20 18:41 Blood Pressure 166/80 H 03/26/20 18:41 Pulse Oximetry 99 03/26/20 18:41 Course Orders Ordered: Discontinued Medications Hydromorphone HCl (Hydromorphone 1 Mg Inj) 1 mg IM NOW ONE Stop: 03/26/20 20:07 Last Admin: 03/26/20 20:17 Dose: 1 mg Documented by: TONY Ketorolac Tromethamine (Ketorolac 60 Mg/2 Ml Vial) 30 mg IM NOW ONE Stop: 03/26/20 19:11 Last Admin: 03/26/20 19:22 Dose: 30 mg Documented by: TONY Tramadol HCl (Tramadol 50 Mg Tablet) 50 mg PO NOW ONE Stop: 03/26/20 20:07 Last Admin: 03/26/20 20:16 Dose: 50 mg Documented by: TONY Tramadol HCl (Tramadol 50 Mg Prepack) 1 bottle [facility] ONE Stop: 03/26/20 20:07 Last Admin: 03/26/20 20:16 Dose: 1 bottle Documented by: TONY Vital Signs Vital signs: Vital Signs - 8 hr 03/26/20 18:41 Temperature 98 F Pulse Rate 99 H Respiratory Rate 16 Blood Pressure 166/80 H Pulse Oximetry 99 [facility] - Back Pain/Injury Medical Records Attestation: I reviewed the patient's medical records. [facility] Narrative Medical decision making narrative: 69-year-old gentleman with acute increase in chronic low back pain over the last 2 weeks with multiple emergency room visits. He is given a shot of Toradol with minimal relief. A single mg of IM Dilaudid was far more helpful. To that of a 50 mg dose of tramadol was added and he was able to walk out of the department relatively pain-free with a ride to take him home. Prescription for tramadol to take with the meloxicam that he does have available to him at home is given. Encouraged him to keep his scheduled MRI appointment tomorrow. At this point my suspicion for epidural abscess or significant emergent pathology is low. He is safe for home discharge Discharge Plan Departure Patient Disposition: Home Clinical Impression: Acute exacerbation of chronic low back pain Instructions: DI for Back Spasm Activity Restrictions/Additional Instructions: Thank you for coming in today You got a shot of Toradol and a shot of Dilaudid. You are also given a pill of tramadol. I have given you some tramadol to use this evening and some to continue. You said that the combination of a single tramadol and a single dose of meloxicam was very effective in controlling her pain previously. I am going to suggest that you continue using the Vistaril/hydroxyzine that you have at home for the severe spasm type pain if it is not controlled with the tramadol meloxicam. I wish you the best with your MRI tomorrow and I hope you get to some better answers and are able to fully enjoy your grandchildren If you develop a fever, numbness or weakness, unable to pee or leaking urine or have additional changes to your pain please feel free to return to the emergency department Prescriptions: New tramadol 50 mg tablet 50 mg PO BID PRN (Reason: pain) Qty: 30 RF: 0 tramadol 50 mg tablet 50 mg PO BID PRN (Reason: pain) Qty: 30 RF: 0 tramadol 50 mg tablet 50 mg PO BID PRN (Reason: pain) Qty: 30 RF: 0 No Action meloxicam 7.5 mg tablet 15 mg PO BID Qty: 60 RF: 2 hydroxyzine pamoate [Vistaril] 25 mg capsule 25 mg PO BID PRN (Reason: pain (scale score 4-6)) Qty: 60 RF: 1 cyclobenzaprine 10 mg tablet 10 mg PO TID PRN (Reason: muscle spasm) Qty: 14 RF: 0 amoxicillin 500 mg capsule 500 mg PO TID Qty: 21 RF: 0 oxycodone 5 mg tablet 5 mg PO Q6H PRN (Reason: pain) Qty: 10 RF: 0 lisinopril 40 mg tablet 40 mg PO DAILY RF: 0 amlodipine 5 mg tablet 5 mg PO DAILY RF: 0 Referrals: Katya Stevens MD [Primary Care Provider] -
[2020-03-26] MEDS: TRAMADOL 50 MG TABLET PO (20:16)
[2020-03-26] MEDS: TRAMADOL 50 MG PREPACK 1 BOTTLE MISC (20:16)
[2020-03-26] MEDS: HYDROMORPHONE 1 MG INJ IM (20:17)
[2020-03-26 20:20] VITALS: BP 172/91; PULSE 95; RESP 18; O2SAT 99
== END 2020-03-26 20:29 | disposition home or self-care (01) ==
PROVIDERS: Emergency Provider Emergency Medicine; PCP Internal Medicine
DX: M54.5 Low back pain (principal); I10 Essential (primary) hypertension; E78.5 Hyperlipidemia, unspecified
CPT/HCPCS: 96372; 99281; 99283; J1170; J1885

== ENCOUNTER 2020-03-31 23:53 | Emergency (ER) | payer OTHER, MEDICAID, SELFPAY ==
[2020-03-31 23:59] VITALS: BP 218/129
--- NOTE | 2020-04-01 00:02 | ED_ITS ---
HPI - General Adult General Chief complaint: Back Pain/Injury Stated complaint: left shoulder pain all down leg Time Seen by Provider: 04/01/20 00:02 History of Present Illness HPI narrative: 69-year-old gentleman with a history of hypertension and his 6th emergency room visit in the last 24 days with complaints of acute exacerbation of his chronic low back pain. Reportedly was supposed to have an ablation however COVID cause that to be rescheduled. He has decided he does not want to have surgery. He was scheduled to have an MRI on the 28 of March but was unable to make that appointment and it is rescheduled for April 02. From the emergency department he has been give Vicodin oxycodone diazepam and with his last visit we negotiated refilling his tramadol 50 mg tablets along with his meloxicam as he stated that that combination was excellent in controlling his overall pain. He did fill his tramadol for 30 pills on March 28. When asked about his pain this evening he states that it is horrible, radiating across his entire lumbar area and up his left shoulder causing him to be unable to find a comfortable position either laying sitting or standing and because of this difficulty sleeping. When asked what medications he has tried prior to coming to the emergency room he notes nothing. When asked about the tramadol and meloxicam recently prescribed he states he took some last night. It does sound like the entire prescription is most likely gone. There are no new complaints or findings to his current acute back pain. His problem is purely severe pain, with no neurologic findings no signs of cauda equina syndrome and aside from pain related restrictions no difficulties with walking or moving. No numbness radiating down into the legs. Related Data Home Medications Medication Instructions Recorded Confirmed amlodipine 5 mg tablet 5 mg PO DAILY 03/05/20 lisinopril 40 mg tablet 40 mg PO DAILY 03/05/20 Previous Rx's Medication Instructions Recorded amoxicillin 500 mg PO TID #21 cap 03/12/20 oxycodone 5 mg PO Q6H PRN #10 tab 03/15/20 cyclobenzaprine 10 mg tablet 10 mg PO TID PRN #14 tab 03/26/20 hydroxyzine pamoate 25 mg capsule 25 mg PO BID PRN #60 cap 03/26/20 meloxicam 7.5 mg tablet 15 mg PO BID #60 tab 03/26/20 tramadol 50 mg PO BID PRN #30 tab 03/26/20 Allergies Allergy/AdvReac Type Severity Reaction Status Date / Time No Known Drug Allergies Allergy Unverified 03/05/20 13:38 Review of Systems Review of Systems Narrative: Pertinent positive and negative findings as per HPI Remainder of review of systems is otherwise unremarkable for Constitutional: Fevers, chills, weakness ENT: No sore throat, neck pain, ear pain CV: Chest pain, palpitations, Respiratory: Cough, wheeze, dyspnea GI: Nausea, vomiting, diarrhea, : Dysuria, hematuria, flank pain Patient History Medical History Facet arthropathy, lumbar Fractures High blood cholesterol High blood pressure Multilevel foraminal stenosis Scoliosis (and kyphoscoliosis), idiopathic Social History Smoking Status: Never smoker Smoking Status: Never smoker alcohol intake frequency: 0-2 drinks per day Substance Use Type: does not use Exam Narrative Exam Narrative: General: In severe distress with dramatic affect of behavior. Well-nourished well-developed Respiratory: Lungs are clear to auscultation, no wheezing no rales no rhonchi. Full and symmetrical air movement Cardiac: Regular rate and rhythm no murmurs no bruits Abdomen: Soft, nontender, good bowel tones, no flank pain Skin: Warm and dry, no rashes Neurologic: Grossly neurologically intact with no obvious asymmetries or abnormalities Extremities: No trauma, well perfused. No radicular symptoms or neurologic defects in either lower extremity. No decreased sensation over the perineal body. Psych: Frustrated and in pain, angry Initial Vital Signs Initial Vital Signs: Vital Signs Blood Pressure 218/129 H 03/31/20 23:59 Course Orders Ordered: Discontinued Medications Ketorolac Tromethamine (Ketorolac 60 Mg/2 Ml Vial) 30 mg IM NOW ONE Stop: 04/01/20 00:05 Last Admin: 04/01/20 00:19 Dose: 30 mg Documented by: MAXIME Tramadol HCl (Tramadol 50 Mg Tablet) 50 mg PO NOW ONE Stop: 04/01/20 00:44 Last Admin: 04/01/20 00:47 Dose: 50 mg Documented by: GENNA Tramadol HCl (Tramadol 50 Mg Tablet) 50 mg PO NOW ONE Stop: 04/01/20 01:10 Last Admin: 04/01/20 01:36 Dose: 50 mg Documented by: MAXIME Vital Signs Vital signs: Vital Signs - 8 hr 03/31/20 23:59 04/01/20 00:06 Temperature 98.2 F Pulse Rate 123 H Respiratory Rate 20 Blood Pressure 218/129 H 218/129 H Pulse Oximetry 100 Medical Decision Making Medical Records Medical records reviewed: Yes I reviewed the patient's medical records. MDM Narrative Medical decision making narrative: 69-year-old gentleman with acute exacerbation of chronic back pain. With his last visit 5 days ago he was given medications to last for a month and it appears that he may have used all of them. No additional medications will be prescribed for outpatient use at this time. He has an appointment scheduled for MRI in the next days and has both a colored liquid plastic applier as well as primary care physician available to him as well. In the ER he was given a shot of Toradol and 50 mg of tramadol and pain was significantly improved. There is no clinical evidence to suggest epidural infection, cauda equina syndrome or acute neurologic progression of his chronic disease. Blood pressure and heart rate were initially elevated presumably secondary to pain, frustration and the fact that he did not take his blood pressure medications this morning. He showing no signs of hypertensive crisis or stroke-like symptoms. At this point he is still hurting however he is safe for home discharge Discharge Plan Departure Patient Disposition: Home Clinical Impression: Acute back pain Qualifiers: Back pain location: low back pain Back pain laterality: bilateral Sciatica presence: without sciatica Qualified Code(s): M54.5 - Low back pain Chronic back pain Qualifiers: Back pain location: low back pain Back pain laterality: bilateral Sciatica presence: without sciatica Qualified Code(s): M54.5 - Low back pain Instructions: DI for Low Back Pain Activity Restrictions/Additional Instructions: I am so sorry you are having such frustrating time with your severe back pain. Unfortunately I am not able to offer much more assistance from the emergency department. When you are in on March 27 we negotiated a month of tramadol and meloxicam and you should still have plenty of both of those available at this time. Your given a shot of Toradol and a dose of tramadol in the emergency department and while it clearly has not completely alleviated your pain you are moving a bit more comfortably. I encourage you to keep your appointment for your MRI on April 02 and you need to schedule follow-up with both Katya Oden and Dr Adkins I wish you the best Prescriptions: No Action meloxicam 7.5 mg tablet 15 mg PO BID Qty: 60 RF: 2 hydroxyzine pamoate [Vistaril] 25 mg capsule 25 mg PO BID PRN (Reason: pain (scale score 4-6)) Qty: 60 RF: 1 cyclobenzaprine 10 mg tablet 10 mg PO TID PRN (Reason: muscle spasm) Qty: 14 RF: 0 amoxicillin 500 mg capsule 500 mg PO TID Qty: 21 RF: 0 oxycodone 5 mg tablet 5 mg PO Q6H PRN (Reason: pain) Qty: 10 RF: 0 tramadol 50 mg tablet 50 mg PO BID PRN (Reason: pain) Qty: 30 RF: 0 lisinopril 40 mg tablet 40 mg PO DAILY RF: 0 amlodipine 5 mg tablet 5 mg PO DAILY RF: 0 Referrals: Katya Stevens MD [Primary Care Provider] -
[2020-04-01 00:06] VITALS: BP 218/129; PULSE 123; RESP 20; TEMP 36.8; O2SAT 100; BMI 26.7
[2020-04-01] MEDS: KETOROLAC 60 MG/2 ML VIAL 30 MG IM (00:19)
[2020-04-01] MEDS: TRAMADOL 50 MG TABLET PO ×2 (00:47→01:36)
== END 2020-04-01 01:49 | disposition home or self-care (01) ==
PROVIDERS: Emergency Provider Emergency Medicine; PCP Internal Medicine
DX: M54.5 Low back pain (principal); I10 Essential (primary) hypertension; E78.5 Hyperlipidemia, unspecified
CPT/HCPCS: 96372; 99281; 99283; J1885

== ENCOUNTER 2020-04-08 00:45 | Observation (INO) | payer OTHER, MEDICAID, SELFPAY ==
[2020-04-08] VITALS (24 sets, daily range): BP systolic 127–182; BP diastolic 30–111; PULSE 69–110; RESP 10–24; TEMP 36.1–37.3; O2SAT 94–100; BMI 26.2
--- NOTE | 2020-04-08 | PATH_ITS ---
[facility] Accession Number: [id number] . 01 Material submitted: . appendix - APPENDIX . 02 Diagnosis: Appendix, Appendectomy: Mild acute appendicitis. 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 No evidence of neoplasm. MRV 04/11/2020 1003 Local . 02 Electronically signed: . Frederic Rajput MD, PhD, Pathologist NPI- [id number] . 01 Gross description: . The specimen is received in formalin, labeled appendix and consists of an 8.5 cm in length by 1.0 cm in diameter vermiform appendix with attached joshi-yellow lobulated mesoappendix measuring 8.0 x 3.0 x 1.0 cm. The serosa is joshi-pink and smooth. Opening reveals a joshi mucosa and a lumen measuring 0.5 cm in diameter. There is a possible perforation site within the tip. Sheet Metal Worker Helper sections are submitted. . A1: margin and central cross-sections. A2: tip, bisected. (EA:[id number]) /MRV 04/10/2020 1624 Local . 02 Pathologist provided ICD-10: K35.80 . 02 CPT . 909030 Performed at: 01 [facility] [address], [place], [place] [id number] MD Scott New MD Phone: [phone] Performed at: 02 [facility] [address] [place], [place] [id number] MD Elsie Hook MD Phone: [phone]
--- NOTE | 2020-04-08 01:13 | PC.NURSE ---
No visible injuries to face, neck, mouth or chest.
--- NOTE | 2020-04-08 01:29 | DI.CT.S_ITS ---
PROCEDURE: CT FACIAL BONES WO CON INDICATIONS: weight fell on him TECHNIQUE: Noncontrast 2.5 mm thick axial images acquired from the mandible through the frontal sinuses, with coronal and sagittal reformatting. For radiation dose reduction, the following was used: automated exposure control, adjustment of mA and/or kV according to patient size. COMPARISON: [facility], CT, CT HEAD/BRAIN WO CON, 04/08/2020, 1:42. [facility], CT, CT CERVICAL SPINE WO CON, 04/08/2020, 1:42. [facility], CT, CT CHEST ABD PEL W CON, 04/08/2020, 1:42. FINDINGS: Image quality: Excellent. Bones and teeth: Orbital sykes are intact. Sinus sykes show no fracture or deformity. Remote appearing nasal bone fractures are seen. There is chronic rightward nasal septal deviation seen. Visualized portions of the mandible demonstrate no fractures or subluxation. Zygomatic arches are intact. Pterygoid plates are intact. Visualized portions of the skull base and auditory canals are intact. Sinuses: Moderate mucosal thickening is seen within the inferior right maxillary sinus. Mastoid air cells are aerated. A left-sided neha bullosa can be seen. Soft tissues: No edema, masses, or fluid collections. No enlarged lymph nodes. No soft tissue lacerations or debris. Vascular: Visualized vascular structures appear normal in the absence of contrast. Bony vascular foramina and canals are intact. IMPRESSION: No acute posttraumatic abnormality is seen. Note: No significant discrepancy from the preliminary report. Dictated by: Neo Randall M.D. on 04/08/2020 at 6:58 Approved by: Neo Randall M.D. on 04/08/2020 at 6:59
--- NOTE | 2020-04-08 01:29 | DI.CT.S_ITS ---
PROCEDURE: CT CERVICAL SPINE WO CON INDICATIONS: Trauma TECHNIQUE: Noncontrast 3 mm thick sections acquired from the skull base to the T4 level. Sagittal and coronal reformats were then constructed. For radiation dose reduction, the following was used: automated exposure control, adjustment of mA and/or kV according to patient size. COMPARISON: [facility], CT, CT CERVICAL SPINE WITHOUT CONTRAST, 07/24/2018, 4:00. [facility], CT, CT CERVICAL SPINE WITHOUT CONTRAST, 05/24/2018, 10:33. [facility], CT, CT HEAD/BRAIN WO CON, 04/08/2020, 1:42. [facility], CT, CT FACIAL BONES WO CON, 04/08/2020, 1:42. [facility], CT, CT CHEST ABD PEL W CON, 04/08/2020, 1:42. FINDINGS: Image quality: This examination is limited by involuntary motion artifact. This examination is somewhat limited by quantum mottle artifact. Bones: No fractures or dislocations. Visualized superior ribs are intact. There is at least moderate disc space narrowing seen the C6-C7 level. Focal degenerative change is seen involving the C1-C2 interface anteriorly. Milder degenerative changes are seen elsewhere. Soft tissues: Prevertebral soft tissues are normal in thickness. No paravertebral hematomas. No apical pneumothoraces. IMPRESSION: No acute fractures are seen. Degenerative changes. Note: No significant discrepancy from the preliminary report. Dictated by: Neo Randall M.D. on 04/08/2020 at 6:49 Approved by: Neo Randall M.D. on 04/08/2020 at 6:51
--- NOTE | 2020-04-08 01:29 | DI.CT.S_ITS ---
PROCEDURE: CT HEAD/BRAIN WO CON INDICATIONS: fall, had 40# weight fall on head, right cheek, face, abrasions TECHNIQUE: Noncontrast 4.5 mm thick angled axial sections acquired from the foramen magnum to the vertex, with coronal and sagittal reformats. For radiation dose reduction, the following was used: automated exposure control, adjustment of mA and/or kV according to patient size. COMPARISON: [facility], CT, CT CERVICAL SPINE WO CON, 04/08/2020, 1:42. [facility], CT, CT FACIAL BONES WO CON, 04/08/2020, 1:42. [facility], CT, CT CHEST ABD PEL W CON, 04/08/2020, 1:42. FINDINGS: Image quality: This examination is limited by involuntary motion artifact. CSF spaces: Basal cisterns are patent. No extra-axial fluid collections. The ventricles are symmetric in size and shape. Brain: No intracranial bleeds or masses. There is cerebral volume loss for age, with resultant ventricular and sulcal prominence. There are periventricular and deep white matter chronic small vessel ischemic changes. There is intracranial internal carotid artery atherosclerosis. Skull and face: Calvarium and visualized facial bones appear intact, without suspicious lesions. Sinuses: Visualized sinuses and mastoids are clear. IMPRESSION: No acute intracranial hemorrhage is seen. No acute intracranial process is seen. Note: No significant discrepancy from the preliminary report. Dictated by: Neo Randall M.D. on 04/08/2020 at 6:59 Approved by: Neo Randall M.D. on 04/08/2020 at 7:00
--- NOTE | 2020-04-08 01:29 | ED_ITS ---
HPI - Head Injury General Chief complaint: Trauma Stated complaint: Head and Chest Pain Time Seen by Provider: 04/08/20 01:15 Source: patient Mode of arrival: EMS Limitations: no limitations History of Present Illness HPI Narrative: This is a 69-year-old male who comes to the emergency department with complaint of a 30-40 lb starter that he was trying to place in his vehicle he states he was lying on his back trying to hold it up while attaching it to the vehicle and fell landing on his center of his forehead, right cheek and then onto his chest. He states this happened about 4:00 a.m. this afternoon. Jody mcneal is unsure if he was knocked out at that time. He states he was up and about he went to bed and this morning he got up and fell in his RV. Patient states that his dogs were licking his face and he then got up. Patient thinks that he may have tripped but he is unsure. He does have a little bit a headache and states he has an abrasion. He is complaining of pain and 1 of his teeth and feels like the crown may be loose. Patient also complains of some neck pain. He denies any new back pain. He denies any current chest pain or shortness of breath no nausea, no vomiting. No new weakness in his extremity. He has had multiple orthopedic surgeries so states he has some chronic weakness. He states he takes lisinopril and no other medications regularly. He denies any allergies to medications. He states he is up-to-date on his immunizations. He currently lives alone and but states his son is coming to live with him. Related Data Home Medications Medication Instructions Recorded Confirmed amlodipine 5 mg tablet 5 mg PO DAILY 03/05/20 lisinopril 40 mg tablet 40 mg PO DAILY 03/05/20 Previous Rx's Medication Instructions Recorded amoxicillin 500 mg PO TID #21 cap 03/12/20 oxycodone 5 mg PO Q6H PRN #10 tab 03/15/20 cyclobenzaprine 10 mg tablet 10 mg PO TID PRN #14 tab 03/26/20 hydroxyzine pamoate 25 mg capsule 25 mg PO BID PRN #60 cap 03/26/20 meloxicam 7.5 mg tablet 15 mg PO BID #60 tab 03/26/20 tramadol 50 mg PO BID PRN #30 tab 03/26/20 Allergies Allergy/AdvReac Type Severity Reaction Status Date / Time No Known Drug Allergies Allergy Unverified 03/05/20 13:38 Review of Systems Review of Systems ROS Unobtainable: All systems reviewed & are unremarkable except as noted in HPI and below Patient History Medical History Facet arthropathy, lumbar Fractures High blood cholesterol High blood pressure Multilevel foraminal stenosis Scoliosis (and kyphoscoliosis), idiopathic Social History Smoking Status: Never smoker Smoking Status: Never smoker alcohol intake frequency: 0-2 drinks per day Substance Use Type: does not use Exam Narrative Exam Narrative: GEN: Patient appears in mild distress. HEAD: No evidence of trauma except for small abrasion on the center of his forehead that is 1 cm in size, no raccoon/Vasquez sign. NECK: Nontender, painless range of motion, trachea midline Positive for Nexus criteria, there is midline tenderness at C5/6 region, no distracting injury, altered mental status, neuro deficit, recent EtOH. EYES: PERRLA, EOMI ENT: External inspection normal, trachea is midline, TM's are normal no hemotypanum, Nares are clear, no septal hematoma, no dental or oral injury appreciated, see below, airway is normal and with normal occlusion, mild right maxillary bony tenderness, patient has pain at tooth 5, no obvious movement, no signs of crack or injury. No bleeding. RESP: Chest is nontender and has symmetric movement, no ecchymosis, breath sounds are normal no crackles, wheezes or rales CVS: Heart sounds are normal, no murmur noted, No JVD. ABG/GI: Positive for RLQ tenderness, soft, normal bowel sounds, no distention, no organomegaly, pelvic rock is negative NEURO: Oriented AOx3, neuro is grossly intact, sensation and motor is normal all 4 extremities moving, cranial nerves II through XII are intact, GCS is 15 PSYCH: Normal mood and affect SKIN: Intact except as above, warm and dry, no crepitus and without decubitus BACK: No CVA tenderness, no vertebral tenderness, no step-off's, no crepitus EXT: Atraumatic, hips are nontender, no pedal edema, normal color and temperature, normal range of motion of extremities with normal tendon exam, 2+ pulses in all four extremities Initial Vital Signs Initial Vital Signs: Vital Signs Pulse Rate 87 04/08/20 00:50 Pulse Oximetry 98 04/08/20 00:50 Scores GCS [place] coma scale eye opening: Spontaneous [place] coma scale verbal response: Orientated [place] coma scale motor response: Obey commands [place] coma scale total score: 15 Course Orders Ordered: ED Orders 04/08/20 01:29 CT cervical spine wo con Stat CT facial bones wo con Stat CT head/brain wo con Stat 04/08/20 01:30 CT chest abd pel w con Stat 04/08/20 01:40 Complete Blood Count AUTO DIFF Stat Comprehensive Metabolic Panel Stat Ethanol (ETOH) Stat Lipase Stat Partial Thromboplastin Time Stat Prothrombin Time INR Stat Type and Screen Stat Sodium Chloride (Normal Saline 0.9%) 1,000 mls @ 125 mls/hr IV CONT KAYLEY Last Admin: 04/08/20 04:10 Dose: 125 mls/hr Documented by: ASHTYN Discontinued Medications Piperacillin/Tazobactam/Dextrose (Zosyn) 3.375 gm in 50 mls @ 100 mls/hr IV NOW ONE Stop: 04/08/20 04:35 Last Infusion: 04/08/20 05:07 Dose: 0 mls/hr Documented by: Admin: 04/08/20 04:11 Dose: 100 mls/hr Documented by: ASHTYN Morphine Sulfate (Morphine 4 Mg/Ml Inj) 4 mg IV NOW ONE Stop: 04/08/20 04:17 Last Admin: 04/08/20 04:17 Dose: 4 mg Documented by: ASHTYN Ondansetron HCl (Ondansetron 4 Mg/2 Ml Inj) 4 mg IV NOW ONE Stop: 04/08/20 04:21 Last Admin: 04/08/20 04:23 Dose: 4 mg Documented by: ASHTYN Reevaluation(s) Time: 04:07 Consultations Consultation #1: Dr. Jarrett accepts for observation with plan for appendectomy this morning. NPO. Zosyn IV antibiotics, will double check the appropriate dosing for his renal function. Time: 04:07 Vital Signs Vital signs: Vital Signs - 8 hr 04/08/20 00:50 04/08/20 00:51 04/08/20 00:53 Temperature 97.9 F Pulse Rate 87 89 70 Respiratory Rate 20 Blood Pressure 158/91 H 158/91 H Pulse Oximetry 98 98 96 04/08/20 01:00 Temperature Pulse Rate 87 Respiratory Rate Blood Pressure 165/95 H Pulse Oximetry 97 MDM - Head Injury Lab Data Attestation: I reviewed the patient's lab results. Result diagrams: 04/08/20 01:40 04/08/20 01:40 Labs: Lab Results 04/08/20 04/08/20 04/08/20 Range/Units 01:40 01:40 01:40 WBC 6.1 (4.5-11.0) X10^3/uL RBC 3.68 L (4.5-5.9) X10^6/uL Hgb 12.3 L (13.5-17.5) g/dL Hct 35.9 L (41-53) % MCV 97.4 (80-100) fL MCH 33.5 (26-34) PG MCHC 34.4 (30-36) % RDW 13.2 (11.6-14.8) % Plt Count 288 (150-400) X10^3/uL Neut % (Auto) 47.8 L (50-75) % Lymph % (Auto) 36.5 (25-40) % [place] % (Auto) 11.9 (3-14) % Eos % (Auto) 2.6 (2-4) % Baso % (Auto) 1.2 (0-2) % Neut # (Auto) 2900 (7995-4478) /uL Lymph # (Auto) 2200 (7072-6932) /uL [place] # (Auto) 700 (0-900) /uL Eos # (Auto) 200 (0-450) /uL Baso # (Auto) 100 (0-100) /uL PT 11.1 (10.1-12.7) SECONDS INR 1.0 (0.9-1.3) APTT 27 (26.4-36.2) SECONDS Sodium 137 (137-145) mmol/L Potassium 4.7 (3.4-5.1) mmol/L Chloride 109 H (98-107) mmol/L Carbon Dioxide 25 (22-32) mmol/L BUN 33 H (9-20) mg/dL Creatinine 1.30 H (0.66-1.25) mg/dL Estimated GFR 54.6 L (>60) mL/min BUN/Creatinine Ratio 25.4 H (6-22) Glucose 107 (80-110) mg/dL Calcium 9.1 (8.4-10.2) mg/dL Total Bilirubin 0.3 (0.2-1.3) mg/dL AST 33 (17-59) IU/L ALT 45 (<50) IU/L Alkaline Phosphatase 99 (38-126) U/L Total Protein 6.4 (6.3-8.2) g/dL Albumin 3.8 (3.5-5.0) g/dL Globulin 2.6 (1.7-4.1) g/dL Albumin/Globulin Ratio 1.5 (1.0-2.8) Lipase 103 (23-300) U/L Ethyl Alcohol < 10 ( - 10) mg/dL Blood Type Antibody Screen 04/08/20 Range/Units 01:40 WBC (4.5-11.0) X10^3/uL RBC (4.5-5.9) X10^6/uL Hgb (13.5-17.5) g/dL Hct (41-53) % MCV (80-100) fL MCH (26-34) PG MCHC (30-36) % RDW (11.6-14.8) % Plt Count (150-400) X10^3/uL Neut % (Auto) (50-75) % Lymph % (Auto) (25-40) % [place] % (Auto) (3-14) % Eos % (Auto) (2-4) % Baso % (Auto) (0-2) % Neut # (Auto) (9093-2777) /uL Lymph # (Auto) (4205-6559) /uL [place] # (Auto) (0-900) /uL Eos # (Auto) (0-450) /uL Baso # (Auto) (0-100) /uL PT (10.1-12.7) SECONDS INR (0.9-1.3) APTT (26.4-36.2) SECONDS Sodium (137-145) mmol/L Potassium (3.4-5.1) mmol/L Chloride (98-107) mmol/L Carbon Dioxide (22-32) mmol/L BUN (9-20) mg/dL Creatinine (0.66-1.25) mg/dL Estimated GFR (>60) mL/min BUN/Creatinine Ratio (6-22) Glucose (80-110) mg/dL Calcium (8.4-10.2) mg/dL Total Bilirubin (0.2-1.3) mg/dL AST (17-59) IU/L ALT (<50) IU/L Alkaline Phosphatase (38-126) U/L Total Protein (6.3-8.2) g/dL Albumin (3.5-5.0) g/dL Globulin (1.7-4.1) g/dL Albumin/Globulin Ratio (1.0-2.8) Lipase (23-300) U/L Ethyl Alcohol ( - 10) mg/dL Blood Type O Negative Antibody Screen Negative Imaging Data CT scan - head: Radiologist's Impression: No acute intracranial pathology. Chronic lacunar infarct posterior right frontal parietal region. Low-density changes in periventricular white matter compatible with chronic microvascular gliosis. CT - cervical spine: Radiologist's Impression: No evidence of acute cervical spinal injury. Minor degenerative anterolisthesis at C4-5 at T [address]: Radiologist's Impression: Negative for acute facial bone fracture minor chronic appearing deformity following the anterior edge of the left nasal bone. Rightward nasal septal deviation. Localized mild right maxillary sinus mucosal thickening. CT scan - abdomen/pelvis: My Impression: no acute injury within chest, abdomen or pelvis. early appendicitis. 6.2mm nodule RML. Dilated fluid-filled mild Ali inflamed appendix retrocecal in location with right lower quadrant up to 9 mm in diameter with mild wall thickening enhancement in adjacent minor EpiPen this seal fat induration. MDM Narrative Medical decision making narrative: This is a 69-year-old male who comes in with complaint of a 30-40 lb vehicle starter falling on his head, face and then chest. No acute injuries other than abrasion or appreciated possibly his tooth was loosened. Patient imaging does show a appendicitis. On repeat examination patient does had significant right lower quadrant tenderness. There is a history of hypertension, denies any other major medical issues. No prior heart attacks or strokes. States he is not on any anticoagulants. Discussed with Dr. Palma who accepts. Number IV antibiotics, gentle fluids and NPO status. Discharge Plan Departure Patient Disposition: Admitted as Observation Clinical Impression: Acute appendicitis, Abrasion of forehead, Head injury Admit Date/Time: 04/08/20 04:09 Admit Provider: Dionna Jarrett
--- NOTE | 2020-04-08 01:30 | DI.CT.S_ITS ---
PROCEDURE: CT CHEST ABD PEL W CON INDICATIONS: Trauma TECHNIQUE: After the administration of intravenous contrast, 5 mm thick sections acquired from the lung apices to the symphysis. 2.5 mm thick coronal and sagittal reformats were acquired. Additional 7 mm thick coronal maximum intensity projection (MIP) reformats acquired through the lungs. Optional 10-minute delayed imaging may be performed from the kidneys to the bladder. For radiation dose reduction, the following was used: automated exposure control, adjustment of mA and/or kV according to patient size. COMPARISON: [facility] [place], CR, XR LUMBAR SPINE 2 OR 3 VIEWS, 12/29/2019, 15:41. [facility], CR, XR LUMBAR SPINE 2-3V, 03/20/2020, 0:03. [facility], CT, CT HEAD/BRAIN WO CON, 04/08/2020, 1:42. [facility], CT, CT CERVICAL SPINE WO CON, 04/08/2020, 1:42. [facility], CT, CT FACIAL BONES WO CON, 04/08/2020, 1:42. FINDINGS: Image quality: Excellent. CHEST: Lungs: No pulmonary contusions or lacerations. There is focal thickening seen along right minor fissure, as on series 36 measuring 7 mm. No acute airspace opacities. No pneumothorax or hemothorax. Central and peripheral airways appear patent and normal in caliber. Mediastinum: No mediastinal hematomas. Heart size is normal. No pericardial effusion. Thoracic aorta and pulmonary arteries demonstrate normal size and enhancement. No mediastinal or hilar adenopathy. Esophagus is normal in caliber. No hiatal hernia. Chest wall: No rib fractures. No subcutaneous emphysema. No axillary or supraclavicular adenopathy. Thyroid gland is not well seen. ABDOMEN: Solid organs: Liver is normal in size and enhancement, without lacerations. Diffuse fatty liver infiltration is noted. Gallbladder wall is not thickened. Biliary system is non-dilated. Pancreas enhances normally, without transection. Spleen is normal in size and enhancement, without lacerations. No adrenal hematomas. Both kidneys enhance normally, without hydronephrosis or lacerations. Peritoneum and bowel: No free fluid or air. Unenhanced bowel loops demonstrate normal wall thickness and caliber. The appendix is mildly prominent at 9 mm and demonstrates mild surrounding inflammatory change, as on series 4, image 34. Nodes and vessels: No retroperitoneal or mesenteric adenopathy. Aorta and inferior vena cava are normal in size and enhancement. Miscellaneous: No ventral hernias. PELVIS: Genitourinary: Bladder wall thickness is normal. Miscellaneous: No inguinal adenopathy. Bilateral fat containing hernias are seen. Bones: Pelvic ring and hip joints appear intact. No vertebral compression fractures. There is [id number] dextroconvex thoracolumbar scoliosis. Age-appropriate bony degenerative changes are seen. IMPRESSION: No significant, acute posttraumatic abnormality can be seen. The appendix appears abnormal, with findings consistent with early appendicitis. This is unusual, given the fact that the patient is presenting with trauma. However, please correlate with right lower quadrant tenderness. If there is suspicion for appendicitis, please consider surgical consultation. There is a 7 mm area thickening along right minor fissure. This is most likely benign. However, please consider follow-up noncontrast chest CT in 6-12 months. Incidental note is made of: Fatty liver infiltration Dextroconvex scoliosis Bilateral fat containing hernias Note: No significant discrepancy from the preliminary report. Dictated by: Neo Randall M.D. on 04/08/2020 at 6:51 Approved by: Neo Randall M.D. on 04/08/2020 at 6:57
[2020-04-08 01:59] LABS: Add Manual Diff / Slide Review NO; Basophils Absolute Auto 100 /uL (0-100); Basophils Percent Auto 1.2 % (0-2); Eosinophils Absolute Auto 200 /uL (0-450); Eosinophils Percent Auto 2.6 % (2-4); Hematocrit 35.9 % (41-53); Hemoglobin 12.3 g/dL (13.5-17.5); Lymphocytes Absolute Auto 2200 /uL (1100-4500); Lymphocytes Percent Auto 36.5 % (25-40); Mean Corpuscular HGB Conc 34.4 % (30-36); Mean Corpuscular Hemoglobin 33.5 PG (26-34); Mean Corpuscular Volume 97.4 fL (80-100); Monocytes Absolute Auto 700 /uL (0-900); Monocytes Percent Auto 11.9 % (3-14); Neutrophils Absolute Auto 2900 /uL (1500-7000); Neutrophils Percent Auto 47.8 % (50-75); Platelet Count 288 X10^3/uL (150-400); Prothrombin Time 11.1 SECONDS (10.1-12.7); Red Blood Cell Count 3.68 X10^6/uL (4.5-5.9); Red Cell Distribution Width 13.2 % (11.6-14.8); White Blood Cell Count 6.1 X10^3/uL (4.5-11.0)
[2020-04-08 02:01] LABS: PTT Partial Thromboplastin Tim 27 SECONDS (26.4-36.2)
[2020-04-08 02:03] LABS: Alanine Aminotransferase 45 IU/L (<50); Albumin 3.8 g/dL (3.5-5.0); Albumin Globulin Ratio 1.5 (1.0-2.8); Alkaline Phosphatase 99 U/L (38-126); Aspartate Aminotransferase 33 IU/L (17-59); BUN Creatinine Ratio 25.4 (6-22); Bilirubin Total 0.3 mg/dL (0.2-1.3); Blood Urea Nitrogen 33 mg/dL (9-20); Calcium 9.1 mg/dL (8.4-10.2); Carbon Dioxide 25 mmol/L (22-32); Chloride 109 mmol/L (98-107); Estimated Glomerular Filt Rate 54.6 mL/min (>60); Globulin 2.6 g/dL (1.7-4.1); Glucose 107 mg/dL (80-110); HEMOLYSIS < 15 (0-50); Lipase 103 U/L (23-300); Potassium 4.7 mmol/L (3.4-5.1); Sodium 137 mmol/L (137-145); Total Protein 6.4 g/dL (6.3-8.2)
[2020-04-08 02:15] LABS: Ethanol (ETOH) < 10 mg/dL
[2020-04-08] MEDS: SODIUM CHLORIDE 0.9% 1,000 ML 125 ML IV (04:10)
[2020-04-08] MEDS: PIPERACILLIN-TAZO 3.375 GM/50 ML FROZ.PIGGY IV ×2 (04:11→10:09)
[2020-04-08] MEDS: MORPHINE 4 MG/ML INJ IV ×2 (04:17→15:50)
[2020-04-08] MEDS: ONDANSETRON 4 MG/2 ML INJ IV ×2 (04:23→11:47)
[2020-04-08 04:51] LABS: COVID19 -Nasal RAPID Negative (Negative)
--- NOTE | 2020-04-08 05:28 | PC.ADMIT ---
[address] [facility] Admission Note:Pt arrived to unit without issues. Denies any pain. Alert and oriented x4. SBA to bed from w/c. Skin check done with Shannan RN. Pt has no complaints at this time The patient,Krzysztof Zimmerman,69 y/o, was given written information regarding hospital policies, unit procedures and contact persons. Patient's smoking status: Never smoker. Vital Signs - 8 hr 04/08/20 00:50 04/08/20 00:51 04/08/20 00:53 Temperature 97.9 F Pulse Rate 87 89 70 Respiratory Rate 20 Blood Pressure 158/91 H 158/91 H Pulse Oximetry 98 98 96 04/08/20 01:00 Temperature Pulse Rate 87 Respiratory Rate Blood Pressure 165/95 H Pulse Oximetry 97
--- NOTE | 2020-04-08 09:11 | P.HP_ITS ---
History of Present Illness History of Present Illness Date Patient Seen: 04/08/20 Time Patient Seen: 09:11 Chief complaint: Head and Chest Pain Narrative: This is a 69-year-old man with history of hypertension, and severe chronic back pain, who came in last night after having dropped car part on his face and chest, while he was working on his car. He was found to have an abrasion on his forehead, but no significant acute injuries from the trauma. On his scan he was found to have acute appendicitis, and on repeat examination was found have tenderness in the right lower quadrant. He does not recall feeling pain in the right lower quadrant prior to coming in the ER, but he feels that this may have been overshadowed by his severe chronic back pain. Uses to have nerve ablation for his back pain, prior to COVID, but it was delayed because of COVID. He has had multiple ER visits in the last few months for the back pain. He says he is otherwise healthy, denies any prior abdominal surgeries, but did have open bilateral inguinal hernia repairs in the remote past. He says he has never had a colonoscopy, and never wants to have 1. He denies any family history of colon cancers or colon polyps. He denies any melena, hematochezia, unexplained weight loss, unexplained abdominal pain. ROS: Thirteen system review is otherwise negative other than as mentioned below and in HPI. PE: GENERAL: Alert, comfortable. Appears stated age. Answers questions promptly and appropriately. Vital signs noted. HENT: Normocephalic, atraumatic. Hearing intact. EYES: Conjunctiva pink, sclera white, no periorbital swelling. CARDIOVASCULAR: Regular rate. No pedal edema. RESPIRATORY: Non-tachypneic, breathing comfortably on room air. GASTROINTESTINAL: Abdomen soft and non-distended, focally tender to palpation in the right lower quadrant, and right flank GENITALURINARY: No left flank tenderness. Status post bilateral inguinal hernia repair MUSCULOSKELETAL: Equal tone and mass bilaterally. SKIN: Small abrasion on the forehead. Warm, dry, soft, appropriate color for ethnicity. No other lesions, rashes, or wounds. NEURO: Alert and Oriented X 3. No gross sensory deficits, or cognitive issues. PSYCH: Appropriate affect and mood. Patient History Medical History Facet arthropathy, lumbar Fractures High blood cholesterol High blood pressure Multilevel foraminal stenosis Scoliosis (and kyphoscoliosis), idiopathic Family & Social History Social History: household members none Prior Living Arrangements House Safety & Behavioral: Feels Safe in Current Yes Environment Been Physically Hurt or No Threatened By a Person Suicidal Ideation Description None Suicide Plan Description No Plan Tobacco & Substance use: Smoking Status Never smoker alcohol intake former alcohol intake frequency 0-2 drinks per day Substance Use Type does not use Meds Home Medications and Allergies Home Medications Medication Instructions Recorded Confirmed Type amlodipine 5 mg tablet 5 mg PO DAILY 03/05/20 04/08/20 History lisinopril 40 mg tablet 40 mg PO DAILY 03/05/20 04/08/20 History cyclobenzaprine 10 mg tablet 10 mg PO TID PRN #14 tab 03/26/20 04/08/20 Rx hydroxyzine pamoate 25 mg capsule 25 mg PO BID PRN #60 cap 03/26/20 04/08/20 Rx Allergies Allergy/AdvReac Type Severity Reaction Status Date / Time No Known Drug Allergies Allergy Unverified 03/05/20 13:38 Exam Vital Signs (past 8 hours): - 04/08/20 05:10 04/08/20 06:26 Temperature 97.9 F Pulse Rate 72 Respiratory Rate 18 Blood Pressure 163/109 H 150/87 H Pulse Oximetry 99 Oxygen Delivery Method Room Air Oxygen Flow Rate [address] scan - abdomen: Radiologist's impression: [address] [id number] Scan ReportSigned Patient: Krzysztof Zimmerman WMR#: [id number]: [id number]:[id number]/Sex: 69 / MDate of Service: 04/08/20Loc: [id number] Number: [id number] Procedure: CT chest abd pel w con Ordering Provider: Renee Bliss D.O. PROCEDURE: CT CHEST ABD PEL W CON INDICATIONS: Trauma TECHNIQUE: After the administration of intravenous contrast, 5 mm thick sections acquired from the lung apices to the symphysis. 2.5 mm thick coronal and sagittal reformats were acquired. Additional 7 mm thick coronal maximum intensity projection (MIP) reformats acquired through the lungs. Optional 10-minute delayed imaging may be performed from the kidneys to the bladder. For radiation dose reduction, the following was used: automated exposure control, adjustment of mA and/or kV according to patient size. COMPARISON: [facility] [place], CR, XR LUMBAR SPINE 2 OR 3 VIEWS, 12/29/2019, 15:41. [facility], CR, XR LUMBAR SPINE 2-3V, 03/20/2020, 0:03. [facility], CT, CT HEAD/BRAIN WO CON, 04/08/2020, 1:42. [facility], CT, CT CERVICAL SPINE WO CON, 04/08/2020, 1:42. [facility], CT, CT FACIAL BONES WO CON, 04/08/2020, 1:42. FINDINGS: Image quality: Excellent. CHEST: Lungs: No pulmonary contusions or lacerations. There is focal thickening seen along right minor fissure, as on series 36 measuring 7 mm. No acute airspace opacities. No pneumothorax or hemothorax. Central and peripheral airways appear patent and normal in caliber. Mediastinum: No mediastinal hematomas. Heart size is normal. No pericardial effusion. Thoracic aorta and pulmonary arteries demonstrate normal size and enhancement. No mediastinal or hilar adenopathy. Esophagus is normal in caliber. No hiatal hernia. Chest wall: No rib fractures. No subcutaneous emphysema. No axillary or supraclavicular adenopathy. Thyroid gland is not well seen. ABDOMEN: Solid organs: Liver is normal in size and enhancement, without lacerations. Diffuse fatty liver infiltration is noted. Gallbladder wall is not thickened. Biliary system is non-dilated. Pancreas enhances normally, without transection. Spleen is normal in size and enhancement, without lacerations. No adrenal hematomas. Both kidneys enhance normally, without hydronephrosis or lacerations. Peritoneum and bowel: No free fluid or air. Unenhanced bowel loops demonstrate normal wall thickness and caliber. The appendix is mildly prominent at 9 mm and demonstrates mild surrounding inflammatory change, as on series 4, image 34. Nodes and vessels: No retroperitoneal or mesenteric adenopathy. Aorta and inferior vena cava are normal in size and enhancement. Miscellaneous: No ventral hernias. PELVIS: Genitourinary: Bladder wall thickness is normal. Miscellaneous: No inguinal adenopathy. Bilateral fat containing hernias are seen. Bones: Pelvic ring and hip joints appear intact. No vertebral compression fractures. There is [id number] dextroconvex thoracolumbar scoliosis. Age-appropriate bony degenerative changes are seen. IMPRESSION: No significant, acute posttraumatic abnormality can be seen. The appendix appears abnormal, with findings consistent with early appendicitis. This is unusual, given the fact that the patient is presenting with trauma. However, please correlate with right lower quadrant tenderness. If there is suspicion for appendicitis, please consider surgical consultation. There is a 7 mm area thickening along right minor fissure. This is most likely benign. However, please consider follow-up noncontrast chest CT in 6-12 months. Incidental note is made of: Fatty liver infiltration Dextroconvex scoliosis Bilateral fat containing hernias Note: No significant discrepancy from the preliminary report. Dictated by: Neo Randall M.D. on 04/08/2020 at 6:51 Approved by: Neo Randall M.D. on 04/08/2020 at 6:57 Labs Result Diagrams: 04/08/20 01:40 04/08/20 01:40 Labs: Laboratory Results - last 24 hr 04/08/20 04/08/20 04/08/20 01:40 01:40 01:40 WBC 6.1 RBC 3.68 L Hgb 12.3 L Hct 35.9 L MCV 97.4 MCH 33.5 MCHC 34.4 RDW 13.2 Plt Count 288 Neut % (Auto) 47.8 L Lymph % (Auto) 36.5 [place] % (Auto) 11.9 Eos % (Auto) 2.6 Baso % (Auto) 1.2 Neut # (Auto) 2900 Lymph # (Auto) 2200 [place] # (Auto) 700 Eos # (Auto) 200 Baso # (Auto) 100 PT 11.1 INR 1.0 APTT 27 Sodium 137 Potassium 4.7 Chloride 109 H Carbon Dioxide 25 BUN 33 H Creatinine 1.30 H Estimated GFR 54.6 L BUN/Creatinine Ratio 25.4 H Glucose 107 Calcium 9.1 Total Bilirubin 0.3 AST 33 ALT 45 Alkaline Phosphatase 99 Total Protein 6.4 Albumin 3.8 Globulin 2.6 Albumin/Globulin Ratio 1.5 Lipase 103 Ethyl Alcohol < 10 SARS-CoV-2 (PCR) Blood Type Antibody Screen 04/08/20 04/08/20 01:40 04:25 WBC RBC Hgb Hct MCV MCH MCHC RDW Plt Count Neut % (Auto) Lymph % (Auto) [place] % (Auto) Eos % (Auto) Baso % (Auto) Neut # (Auto) Lymph # (Auto) [place] # (Auto) Eos # (Auto) Baso # (Auto) PT INR APTT Sodium Potassium Chloride Carbon Dioxide BUN Creatinine Estimated GFR BUN/Creatinine Ratio Glucose Calcium Total Bilirubin AST ALT Alkaline Phosphatase Total Protein Albumin Globulin Albumin/Globulin Ratio Lipase Ethyl Alcohol SARS-CoV-2 (PCR) Negative Blood Type O Negative Antibody Screen Negative Assessment & Plan Assessment and plan (1) Acute appendicitis: Status: Acute (2) Chronic back pain: Qualifiers: Back pain laterality: bilateral Back pain location: low back pain Sciatica presence: without sciatica Qualified Code(s): M54.5 - Low back pain; G 89.29 - Other chronic pain Status: Acute (3) Acute back pain: Qualifiers: Back pain laterality: bilateral Back pain location: low back pain Sciatica presence: without sciatica Qualified Code(s): M54.5 - Low back pain Status: Acute (4) High blood pressure: Status: Inactive Assessment & Plan narrative: This is a 69-year-old man who came in as a trauma, but was found to have no significant trauma injuries other than an abrasion to his forehead. However, he was found to have a CT scan consistent with acute appendicitis, and on repeat physical exam was found to have right lower quadrant tenderness, and exam consistent with acute appendicitis as well. I had a long discussion with the patient regarding the risks and benefits of laparoscopic appendectomy, and the option of treating him with antibiotics alone. Risk of bleeding, infection, damage to nearby structures, need for additional procedures, abscess formation, leak, bleed, obstruction, hernia were discussed. The patient desires to proceed with laparoscopic possible open appendectomy. I discussed with him the fact he has never had a colonoscopy. Initially he said he never wanted to have 1. Did explain to him that the risk of colon cancer increases with age, and I described to him the potential outcomes of developing in the noticed colon polyps or colon cancer, including the potential for colon obstruction or metastatic disease arising before any other symptoms, resulting in emergency surgery, potential colostomy, potential for much more severe disease. We discussed the colonoscopy procedure, and the risks and benefits there of. He would like to schedule a colonoscopy after he comes in for follow- up from his appendectomy. We will discuss that at his appendectomy follow-up appointment in a few weeks. Plan: NPO, IV fluids, IV Zosyn Laparoscopic possible open appendectomy today Possible DC home this afternoon if he is doing well post surgery COVID-19 COVID-19 status: Negative Result date/Date tested (Pos, Neg/Pending): 04/08/20 Time Spent With Patient Time with patient: 25 - 35 minutes Quality VTE Deep Vein Thrombosis/Pulmonary Embolism Present on Admission: No
--- NOTE | 2020-04-08 09:40 | PC.NURSE ---
Pt to OR for surgery via bed by INVENTORY ACCOUNTANT.
[2020-04-08] MEDS: LACTATED RINGERS 1,000 ML 42 ML IV ×2 (09:58→12:18)
[2020-04-08] MEDS: BUPIVACAINE 0.5% W/ EPI (PF) 30 ML VIAL INJ (10:37)
--- NOTE | 2020-04-08 10:39 | SUR.OPER ---
Supine on padded OR bed, head on pillow, left arm padded and tucked at side,right arm secured on padded arm board <90 degrees abduction, legs uncrossed, safety belt at thigh, tape over blanket over lower legs .
--- NOTE | 2020-04-08 11:34 | PM.OP.1 ---
Operative Date/Time/Diagnoses Date of procedure: 04/08/20 Time of procedure: 11:34 Pre-op diagnosis: acute appendicitis Post-op diagnosis: same (thickened elongated retrocecal appendix extending the full length of the ascending colon to the hepatic flexure) Procedure & Clinicians Procedure: Laparoscopic appendectomy Same procedure as scheduled: Yes Indications: Acute appendicitis Surgeon: Dionna Jarrett Click Yes if Unassisted: Yes Anesthesia Type: General Operative Notes Findings: Thickened elongated retrocecal appendix extending the full length of the ascending colon to the a patent flexure Specimen(s): other (Appendix) Estimated Blood Loss (mL): 10 Procedure in detail: The patient was brought into the operating room and placed supine on the OR table. Sequential compression devices were placed on both legs and turned on. 3.375 gm of Zosyn was given prior to the start of surgery. General anesthesia was induced the patient was intubated. Nj catheter was placed sterilely in the bladder. The abdomen was prepped and draped in sterile fashion. Surgical time-out was conducted. Local anesthetic was injected under the skin just superior to the umbilicus and a 5 mm vertical incision was made at this site. The umbilical stalk was grasped with a Gavino and elevated. A Veress needle was passed through the fascia into proper position. The position was tested with a saline drop test which was appropriate for intra-abdominal Veress needle placement. The abdomen was then insufflated in the usual fashion. Once insufflated to 15 mm Hg the Veress needle was removed and a 5 mm optical trocar was placed under direct vision using a 5 mm 30 degree scope. Once the camera was inside the abdomen I took a look around. There was no injury from port placement. Two additional ports were placed in a similar fashion in the suprapubic position and left lower quadrant. The umbilical port was upsized to a 12 mm port. I took a look at the cecum and right lower quadrant, and the appendix was seen thickened, firm, and adherent to the surrounding structures, extending retrocecally along the full length of the ascending colon up to the hepatic flexure. The right colon was rotated medially, and prolonged dissection was undertaken to dissect the appendix away from the colon and the white line of Toldt. Dissection was carried all the way up to the hepatic flexure, and the tip of the appendix was finally identified, and adhesions to the tip of the appendix were divided. There were very vascular attachments between the appendix and the ascending colon, which were carefully divided using LigaSure for the full length of the ascending colon. Once all of the vascular attachments were divided, and the appendix was completely freed from the ascending colon, I was able to identify the base of the appendix as it enters the cecum. At its base, the appendix was soft and pliable. Once all of the mesoappendix and surrounding adhesions were divided and hemostatic, 2 Endoloops were placed at the base of the appendix, and the appendix was divided with LigaSure leaving the endo-loops in place on the cecum. The appendix was then placed into an Endo-Catch bag, and removed through the umbilical port site. The appendix was then passed off the table for pathology. I then took another look at the right lower quadrant,, and the right gutter along the ascending colon to check all of the divided vascular adhesions for any ongoing bleeding. There was no evidence of ongoing bleeding. The endo-loops were in good position, and the cecum was hemostatic. I then used the laparoscopic suture passer and closed the umbilical port site with 0 Vicryl suture through the fascia. Local anesthetic was used in this site and the other 2 port sites for a total of 30 mL of 0.5% Marcaine with epi for the entire case. At this point the insufflation was removed from the abdomen and the port sites were closed with, 3-0 Vicryl in the subcutaneous layers, and 4 Monocryl in the skin. Each port site was sealed with Dermabond. Local anesthetic was given at each of the port sites and in the fascia. This concluded the procedure. At this point the needle sponge and instrument counts were correct. The patient was awakened from anesthesia and extubated. Nj catheter was removed without incident. The patient was transferred to the postanesthesia care unit in stable condition. Complications: none Post-operative Condition: stable Disposition: PACU
[2020-04-08] MEDS: fentaNYL 100 MCG/2 ML INJ IV ×3 (11:47→12:22)
[2020-04-08] MEDS: HYDROMORPHONE 2 MG INJ IV ×2 (11:47→12:32)
[2020-04-08] MEDS: OXYCODONE IR 5 MG TABLET PO ×2 (12:28→16:34)
--- NOTE | 2020-04-08 15:56 | CM.DANOTE ---
Discharge Planning/Care Management DCP: assessment: case received, EMR reviewed and discussed in Team Rounds. Pt is a 69 year old male who admitted early this mornin to care of [facility]: Dr. Jarrett PCP: Katya Stevens is listed Pt is also a pt of Dr. Vasquez at the [facility]. Payer [employer] Medicare [employer]vantage and medicaid. Admission status: OBS: per UR [facility] Little Pt was taken to surgery today after dx of acute appendicitis and laproscopic appendectomy was performed. P: DCP team to follow up with him tomorrow to continue the assessment process as he has been in surgery and then recovery much of the day. CM Discharge Assessment Start: 04/08/20 15:55 Freq: Status: Active Protocol: Document 04/08/20 15:55 ITV (Rec: 04/08/20 15:56 ITV [id number]) Discharge Planning Assessment Advance Directives? Yes History Provided By Medical Record Prior Living Arrangements House Household Members none Independent with ADL's Yes Is patient alert and oriented? Yes
--- NOTE | 2020-04-08 18:02 | PC.NURSE ---
Discharge Note Patient A&O, VSS within baseline, RA. No complaints of chest pain or shortness of breath. Post op abdominal pain well managed with PO oxycodone.Discharge packet given to patient and reviewed by this RN. No questions or concerns. PIV discontinued. All belongings packed and given to patient along with discharge packet. Patient reminded to pick-up medication scripts from pharmacy on way home. Patient taken down via wheelchair by HIGH SCHOOL ASSISTANT PRINCIPAL to POV.
== END 2020-04-08 18:00 | disposition home or self-care (01) ==
LOC: ED 04:07 → AC 04:11
PROVIDERS: Admitting Provider Surgery; Emergency Provider Emergency Medicine; PCP Internal Medicine; Referring Provider Emergency Medicine; Visit Provider Surgery
PROC: 0DTJ4ZZ Resection of Appendix, Percutaneous Endoscopic Approach (ICD-10-PCS; CPT 44970; principal; 2020-04-08 10:00)
DX: K35.80 Unspecified acute appendicitis (principal); R51.9 Headache, unspecified; R07.89 Other chest pain; G89.29 Other chronic pain; M54.5 Low back pain; S00.81XA Abrasion of other part of head, initial encounter; I10 Essential (primary) hypertension; W20.8XXA Other cause of strike by thrown, projected or falling object, initial encounter; Y93.89 Activity, other specified; Z20.822 Contact with and (suspected) exposure to COVID-19
CPT/HCPCS: 44970; 36415; 70450; 70486; 71260; 72125; 74177; 80053; 80320; 82962; 83690; 85025; 85610; 85730; 86850; 86900; 86901; 87635; 96365; 96375; 96376; 99220; 99284; C9803; G0378; J0330; J1100; J1170; J2270; J2405; J2543; J2704; J3010; Q9967

== ENCOUNTER 2020-04-12 11:58 | Emergency (ER) | payer OTHER, MEDICAID, SELFPAY ==
[2020-04-08 05:10] VITALS: BMI 26.2
--- NOTE | 2020-04-12 12:00 | DI.CT.S_ITS ---
PROCEDURE: CT ABDOMEN PELVIS W CON INDICATIONS: post op from appy with increase in pain TECHNIQUE: After the administration of intravenous contrast, 5 mm thick sections acquired from the diaphragm to the symphysis. 5 mm coronal and sagittal reformats were acquired. For radiation dose reduction, the following was used: automated exposure control, adjustment of mA and/or kV according to patient size. COMPARISON: [facility], CT, CT CHEST ABD PEL W CON, 04/08/2020, 1:42. FINDINGS: Image quality: Excellent. ABDOMEN: Lung bases: Lung bases are clear. Heart size is normal. Small hiatal hernia. Solid organs: There is hepatic steatosis. Liver is normal in size and enhancement. Gallbladder is normal. Biliary system is non dilated. Pancreas enhances normally. Spleen is normal in size and enhancement. No adrenal nodules. Kidneys demonstrate normal size and enhancement. There is mild left renal pelviectasis. Peritoneum and bowel: Appendix is surgically absent. Subtle stranding in the right lower quadrant is consistent with postsurgical change. No fluid collections to suggest abscess. There is a large amount of stool in colon. Bowel loops demonstrate normal wall thickness and caliber. No free fluid or air. Nodes and vessels: No retroperitoneal or mesenteric adenopathy by size criteria. Aorta and inferior vena cava are normal in size. Miscellaneous: No ventral hernias. PELVIS: Genitourinary: Bladder wall thickness is normal. Miscellaneous: No inguinal hernias or adenopathy. Bones: No suspicious bony lesions. No vertebral body compression fractures. Severe degenerative changes in lumbar spine. Mild stranding in the right thigh. IMPRESSION: 1. No acute abnormality in abdomen or pelvis. Appendectomy. No findings to suggest postoperative abscess. 2. Mild left renal pelviectasis. No renal stones. 3. A large amount of stool in colon. The result was discussed with Dr. Workman. Dictated by: Angelito Villa M.D. on 04/12/2020 at 13:27 Approved by: Angelito Villa M.D. on 04/12/2020 at 13:37
[2020-04-12 12:02] VITALS: BP 205/100; PULSE 95; RESP 15; TEMP 36.6; O2SAT 98; BMI 26.2
[2020-04-12] MEDS: SODIUM CHLORIDE 0.9% 1,000 ML 1000 ML IV (12:06)
--- NOTE | 2020-04-12 12:10 | ED_ITS ---
HPI - General Adult General Chief complaint: Abdominal Pain Stated complaint: Sent by Dr Awad, surgery Time Seen by Provider: 04/12/20 11:59 Source: patient Mode of arrival: Wheelchair Limitations: no limitations History of Present Illness HPI narrative: 69-year-old male who within the past week underwent a laparos copic appendectomy by General surgery here at this facility who had a follow-up appointment today and was sent to the emergency department afterwards complaining of right-sided abdominal pain. No fevers. Patient states he is urinating without problems. States the pain is consistent. Has had a bowel movement since the procedure. He did return to normal activities very quickly afterwards because he stated that he had no one to help him and he had do this. Related Data Home Medications Medication Instructions Recorded Confirmed amlodipine 5 mg tablet 5 mg PO DAILY 03/05/20 04/12/20 lisinopril 40 mg tablet 40 mg PO DAILY 03/05/20 04/12/20 Previous Rx's Medication Instructions Recorded cyclobenzaprine 10 mg tablet 10 mg PO TID PRN #14 tab 03/26/20 hydroxyzine pamoate 25 mg capsule 25 mg PO BID PRN #60 cap 03/26/20 docusate sodium 100 mg PO BID #20 cap 04/08/20 oxycodone 5 mg PO Q6H PRN #20 tab 04/08/20 hydrocodone-acetaminophen [[place]] 1 tab PO Q4-6H PRN #10 tab 04/12/20 Allergies Allergy/AdvReac Type Severity Reaction Status Date / Time No Known Drug Allergies Allergy Verified 04/12/20 12:07 Review of Systems Constitutional Constitutional: Denies fever(s) and Denies headache(s) ENT Ears, Nose, Mouth, and Throat: Denies headache(s) Cardiovascular Cardiovascular: Denies chest pain and Denies dyspnea Respiratory Respiratory: Denies dyspnea Gastrointestinal Gastrointestinal: Reports abdominal pain, Denies change in bowel habits, Denies constipation, Denies diarrhea, Denies nausea and Denies vomiting Genitourinary Genitourinary: Denies dysuria Genitourinary: Denies dysuria Musculoskeletal Musculoskeletal: Denies arthralgias and Denies myalgias Integumentary/Breasts Skin/Breast: Denies rash Neurologic Neurologic: Denies behavioral changes and Denies headache(s) Psychiatric Psychiatric: Denies behavioral changes Hematologic/Lymphatic On Anticoagulants: No Allergic/Immunologic Allergic/Immunologic: Denies urticaria Patient History Medical History Facet arthropathy, lumbar Fractures High blood cholesterol High blood pressure Multilevel foraminal stenosis Scoliosis (and kyphoscoliosis), idiopathic Social History household members: none Smoking Status: Never smoker alcohol intake: former Smoking Status: Never smoker alcohol intake frequency: 0-2 drinks per day Substance Use Type: does not use Exam Initial Vital Signs Initial Vital Signs: Vital Signs Temperature 97.9 F 04/12/20 12:02 Pulse Rate 95 H 04/12/20 12:02 Respiratory Rate 15 04/12/20 12:02 Blood Pressure 205/100 H 04/12/20 12:02 Pulse Oximetry 98 04/12/20 12:02 Const General: cooperative Limitations: mental status not altered HENMT Head: normal to inspection and normocephalic Resp Effort & Inspection: normal respiratory effort Auscultation: clear to auscultation bilaterally Cardio Rate: regular rate Rhythm: regular rhythm GI Inspection: non-distended Palpation: soft and tender (Generalized tenderness) Skin Other: Postoperative surgical incisions around the umbilicus looks well which is minor bruising Neuro General: patient alert and patient awake Cognition: normal cognition Speech: speech normal Extrem General: capillary refill normal Psych Appearance: grossly normal and well kempt Course Orders Ordered: ED Orders 04/12/20 12:00 CT abdomen pelvis w con Stat 04/12/20 12:07 Complete Blood Count AUTO DIFF Stat Comprehensive Metabolic Panel Stat Lactate (Lactic Acid) Stat Lipase Stat 04/12/20 12:20 [place] [facility] [place] [facility] Stat Discontinued Medications Sodium Chloride (Normal Saline 0.9%) 1,000 mls @ 1,000 mls/hr IV BOLUS ONE Stop: 04/12/20 12:58 Last Infusion: 04/12/20 13:04 Dose: 0 mls/hr Documented by: Admin: 04/12/20 12:06 Dose: 1,000 mls/hr Documented by: KORI Morphine Sulfate (Morphine 4 Mg/Ml Inj) 4 mg IV NOW ONE Stop: 04/12/20 13:18 Last Admin: 04/12/20 13:20 Dose: 4 mg Documented by: KSWANSO Vital Signs Vital signs: Vital Signs - 8 hr 04/12/20 12:02 04/12/20 12:12 04/12/20 12:30 Temperature 97.9 F Pulse Rate 95 H 90 84 Respiratory Rate 15 Blood Pressure 205/100 H Pulse Oximetry 98 99 99 04/12/20 13:08 04/12/20 14:12 Temperature Pulse Rate 89 90 Respiratory Rate Blood Pressure 171/95 H Pulse Oximetry 96 98 Medical Decision Making Lab Data Lab results reviewed: Yes I reviewed the patient's lab results. Result diagrams: 04/12/20 12:07 04/12/20 12:07 Labs: Lab Results 04/12/20 04/12/20 04/12/20 Range/Units 12:07 12:07 12:07 WBC 15.0 H (4.5-11.0) X10^3/uL RBC 3.89 L (4.5-5.9) X10^6/uL Hgb 12.9 L (13.5-17.5) g/dL Hct 37.9 L (41-53) % MCV 97.5 (80-100) fL MCH 33.1 (26-34) PG MCHC 34.0 (30-36) % RDW 12.7 (11.6-14.8) % Plt Count 343 (150-400) X10^3/uL Neut % (Auto) 85.9 H (50-75) % Lymph % (Auto) 10.8 L (25-40) % [place] % (Auto) 2.8 L (3-14) % Eos % (Auto) 0.1 L (2-4) % Baso % (Auto) 0.4 (0-2) % Neut # (Auto) 32317 H (8039-1435) /uL Lymph # (Auto) 1600 (7436-0715) /uL [place] # (Auto) 400 (0-900) /uL Eos # (Auto) 0 (0-450) /uL Baso # (Auto) 100 (0-100) /uL Sodium 136 L (137-145) mmol/L Potassium 4.4 (3.4-5.1) mmol/L Chloride 102 (98-107) mmol/L Carbon Dioxide 29 (22-32) mmol/L BUN 22 H (9-20) mg/dL Creatinine 0.83 (0.66-1.25) mg/dL Estimated GFR > 60.0 (>60) mL/min BUN/Creatinine Ratio 26.5 H (6-22) Glucose 130 H (80-110) mg/dL Lactate 1.2 (0.7-2.1) mmol/L Calcium 9.5 (8.4-10.2) mg/dL Total Bilirubin 0.4 (0.2-1.3) mg/dL AST 47 (17-59) IU/L ALT 70 H (<50) IU/L Alkaline Phosphatase 99 (38-126) U/L Total Protein 7.5 (6.3-8.2) g/dL Albumin 4.4 (3.5-5.0) g/dL Globulin 3.1 (1.7-4.1) g/dL Albumin/Globulin Ratio 1.4 (1.0-2.8) Lipase 42 D (23-300) U/L Urine Dip Bedside Urine Glucose Negative Bedside Urine Bilirubin - Negative Bedside Urine Ketone - Negative Urine Specific [place] 1.025 Bedside Urine Occult Blood - Negative Bedside Urine pH 6 Bedside Urine Protein - Negative Bedside Urine Urobilinogen - Negative Bedside Urine Nitrite - Negative Bedside Urine Leukocytes - Negative Esterase Point of care testing: Urine Dip Bedside Urine Glucose Negative Bedside Urine Bilirubin - Negative Bedside Urine Ketone - Negative Urine Specific [place] 1.025 Bedside Urine Occult Blood - Negative Bedside Urine pH 6 Bedside Urine Protein - Negative Bedside Urine Urobilinogen - Negative Bedside Urine Nitrite - Negative Bedside Urine Leukocytes - Negative Esterase Imaging Data CT scan - abdomen/pelvis: Radiologist's Impression: [address] [id number] Scan ReportSigned Patient: Krzysztof Zimmerman WMR#: [id number]: 1950Acct:[id number]/Sex: 69 / MDate of Service: 04/12/20Loc: EDAccession Number: [id number] Procedure: CT abdomen pelvis w con Ordering Provider: James Workman D.O. PROCEDURE: CT ABDOMEN PELVIS W CON INDICATIONS: post op from appy with increase in pain TECHNIQUE: After the administration of intravenous contrast, 5 mm thick sections acquired from the diaphragm to the symphysis. 5 mm coronal and sagittal reformats were acquired. For radiation dose reduction, the following was used: automated exposure control, adjustment of mA and/or kV according to patient size. COMPARISON: [facility], CT, CT CHEST ABD PEL W CON, 04/08/2020, 1:42. FINDINGS: Image quality: Excellent. ABDOMEN: Lung bases: Lung bases are clear. Heart size is normal. Small hiatal hernia. Solid organs: There is hepatic steatosis. Liver is normal in size and enhancement. Gallbladder is normal. Biliary system is non dilated. Pancreas enhances normally. Spleen is normal in size and enhancement. No adrenal nodules. Kidneys demonstrate normal size and enhancement. There is mild left renal pelviectasis. Peritoneum and bowel: Appendix is surgically absent. Subtle stranding in the right lower quadrant is consistent with postsurgical change. No fluid collections to suggest abscess. There is a large amount of stool in colon. Bowel loops demonstrate normal wall thickness and caliber. No free fluid or air. Nodes and vessels: No retroperitoneal or mesenteric adenopathy by size criteria. Aorta and inferior vena cava are normal in size. Miscellaneous: No ventral hernias. PELVIS: Genitourinary: Bladder wall thickness is normal. Miscellaneous: No inguinal hernias or adenopathy. Bones: No suspicious bony lesions. No vertebral body compression fractures. Severe degenerative changes in lumbar spine. Mild stranding in the right thigh. IMPRESSION: 1. No acute abnormality in abdomen or pelvis. Appendectomy. No findings to suggest postoperative abscess. 2. Mild left renal pelviectasis. No renal stones. 3. A large amount of stool in colon. The result was discussed with Dr. Workman. Dictated by: Angelito Villa M.D. on 04/12/2020 at 13:27 Approved by: Angelito Villa M.D. on 04/12/2020 at 13:37 MDM Narrative Medical decision making narrative: Patient does have a leukocytosis. He does not appear to have a intra abdominal infectious issue per the CT report and per my conversations with Radiology. His urinalysis is negative. His skin shows no signs of an infection. The surgical incision looks well. He is not having any cough. Low suspicion for pneumonia. His leukocytosis could potentially be secondary to the discomfort or also secondary to his appendicitis in just has not resolved up to this point. I did discuss all of this with the patient. He states he does not want to be admitted to the hospital. I discussed the case with Dr. Jarrett who is the operative provider who states that if the patient would like to go home she will have her office contact him tomorrow for follow- up. He does have stool softeners at home and we discussed the use of these. Was sent home with a short course of pain medication. They were electronically transmitted to the pharmacy of his choice. He was given strict return precau tions. He expressed understanding and agreement. Discharge Plan Departure Patient Disposition: Home Clinical Impression: Post-operative pain, Leukocytosis Instructions: DI for Postoperative Pain Activity Restrictions/Additional Instructions: Recommend that you continue all of the postoperative instructions given to you by Dr. Jarrett. A prescription for pain medications was electronically tr ans[facility] to [facility] per your request. Dr. Jarrett's office will contact you tomorrow however if your symptoms worsen or you develop fevers please return to the emergency department. I also recommend that you start taking the Dulcolax that your given postoperatively. Prescriptions: New hydrocodone-acetaminophen [[place]] 5-325 mg tablet 1 tab PO Q4-6H PRN (Reason: pain) Qty: 10 RF: 0 No Action hydroxyzine pamoate [Vistaril] 25 mg capsule 25 mg PO BID PRN (Reason: pain (scale score 4-6)) Qty: 60 RF: 1 cyclobenzaprine 10 mg tablet 10 mg PO TID PRN (Reason: muscle spasm) Qty: 14 RF: 0 oxycodone 5 mg tablet 5 mg PO Q6H PRN (Reason: post operative pain) Qty: 20 RF: 0 docusate sodium 100 mg capsule 100 mg PO BID Qty: 20 RF: 0 lisinopril 40 mg tablet 40 mg PO DAILY RF: 0 amlodipine 5 mg tablet 5 mg PO DAILY RF: 0 Referrals: Katya Stevens MD [Primary Care Provider] -
[2020-04-12 12:12] VITALS: PULSE 90; O2SAT 99
[2020-04-12 12:21] LABS: Add Manual Diff / Slide Review NO; Basophils Absolute Auto 100 /uL (0-100); Basophils Percent Auto 0.4 % (0-2); Eosinophils Absolute Auto 0 /uL (0-450); Eosinophils Percent Auto 0.1 % (2-4); Hematocrit 37.9 % (41-53); Hemoglobin 12.9 g/dL (13.5-17.5); Lymphocytes Absolute Auto 1600 /uL (1100-4500); Lymphocytes Percent Auto 10.8 % (25-40); Mean Corpuscular Hemoglobin 33.1 PG (26-34); Mean Corpuscular Volume 97.5 fL (80-100); Monocytes Absolute Auto 400 /uL (0-900); Monocytes Percent Auto 2.8 % (3-14); Neutrophils Absolute Auto 12900 /uL (1500-7000); Neutrophils Percent Auto 85.9 % (50-75); Platelet Count 343 X10^3/uL (150-400); Red Blood Cell Count 3.89 X10^6/uL (4.5-5.9); Red Cell Distribution Width 12.7 % (11.6-14.8)
[2020-04-12 12:30] VITALS: PULSE 84; O2SAT 99
[2020-04-12 12:31] LABS: Alanine Aminotransferase 70 IU/L (<50); Albumin 4.4 g/dL (3.5-5.0); Albumin Globulin Ratio 1.4 (1.0-2.8); Alkaline Phosphatase 99 U/L (38-126); Aspartate Aminotransferase 47 IU/L (17-59); BUN Creatinine Ratio 26.5 (6-22); Bilirubin Total 0.4 mg/dL (0.2-1.3); Blood Urea Nitrogen 22 mg/dL (9-20); Calcium 9.5 mg/dL (8.4-10.2); Carbon Dioxide 29 mmol/L (22-32); Chloride 102 mmol/L (98-107); Estimated Glomerular Filt Rate > 60.0 mL/min (>60); Globulin 3.1 g/dL (1.7-4.1); Glucose 130 mg/dL (80-110); HEMOLYSIS < 15 (0-50); Lactate (Lactic Acid) 1.2 mmol/L (0.7-2.1); Lipase 42 U/L (23-300); Potassium 4.4 mmol/L (3.4-5.1); Sodium 136 mmol/L (137-145); Total Protein 7.5 g/dL (6.3-8.2)
[2020-04-12 13:08] VITALS: PULSE 89; O2SAT 96
[2020-04-12] MEDS: MORPHINE 4 MG/ML INJ IV (13:20)
[2020-04-12 14:12] VITALS: BP 171/95; PULSE 90; O2SAT 98
--- NOTE | 2020-04-12 14:36 | CM.SWNOTE ---
INFORMATION STRATEGIST note INFORMATION STRATEGIST consult requested for patient. Patient is a 69 y/o male who presents to this ED due to significant abdominal pain following a recent apendectomy. Patient was sent to ED from PCP. Per verbal report from Dr. Workman, PCP reports that patient made remarks about wanting to commit suicide-no other information provided regarding this. Per ED triage note, patient denies SI/HI. INFORMATION STRATEGIST enters room and introduces self, role to patient. Patient explains he has no help at home and reports carrying out many tasks that likely contributed to his abdominal pain. Patient reports he had to change a starter in my truck and clean his RV. Patient reports the starter did fall on him while he was changing it, but states it did not hit the incision site. INFORMATION STRATEGIST offers to inquire about [facility] for patient. Patient provides verbal consent for INFORMATION STRATEGIST to contact [facility] regarding this. INFORMATION STRATEGIST is informed by [facility] that-while patient does qualify for [facility] caregivng- it would likely be 8 weeks until he was assigned a caregiver, and patient would likely be healed by this time. INFORMATION STRATEGIST reviews this with patient, who says he is not interested in a caregiver 8 weeks from now, and declines to pursue [facility]. Patient explains he is very independent at baseline and is looking forward to his health improving so he can continue to be independant. During conversation, patient offers that he almost did something stupid approx. 9 months ago. When asked for clarification, patient becomes tearful and makes a hand gesture of a gun being fired. Patient explains he was heartbroken at the time following his divorce from his ex . Patient reports that his two schnauzers saved me during that moment. Patient denies any suicidality and states that he would never kill himself, explains: my pups need me and I have kids and grandkids. Patient and INFORMATION STRATEGIST discuss avoiding reinjury and patient indicates understanding that he should avoid doing physical labor if possible until he heals more. Patient states he would like assistance with food, and gives INFORMATION STRATEGIST permission to call [facility] to arrange this. INFORMATION STRATEGIST calls [facility] and leaves voicemail with patient's name and contact info. Pl: patient to d/c to home ALEX Martinez
== END 2020-04-12 14:29 | disposition home or self-care (01) ==
PROVIDERS: Emergency Provider Emergency Medicine; PCP Internal Medicine
DX: G89.18 Other acute postprocedural pain (principal); D72.829 Elevated white blood cell count, unspecified; R10.9 Unspecified abdominal pain
CPT/HCPCS: 36415; 74177; 80053; 81003; 83605; 83690; 85025; 96361; 96374; 99283; 99284; J2270

== ENCOUNTER 2020-04-16 02:29 | Emergency (ER) | payer OTHER, MEDICAID, SELFPAY ==
[2020-04-08 05:10] VITALS: BMI 26.2
[2020-04-16 02:52] VITALS: BP 204/109; PULSE 103; RESP 20; TEMP 36.6; O2SAT 98; BMI 26.7
--- NOTE | 2020-04-16 03:03 | ED_ITS ---
HPI - Dental/Oral General Chief complaint: Dental/Oral Stated complaint: swelling/pain left side of face Time Seen by Provider: 04/16/20 02:37 Source: patient Mode of arrival: Ambulatory Limitations: no limitations History of Present Illness HPI Narrative: The patient is a 69-year-old male who has been here recently is lately. On the he was here after the center of his forehead and right cheek in the he had CT scans at that time which actually showed appendicitis. He has been recovering nicely from surgery is no overall doing well however list 3 days he has had left-sided dental pain and dry pain. It hurts to touch there is with no there he denies any fever or chills. Related Data Home Medications Medication Instructions Recorded Confirmed amlodipine 5 mg tablet 5 mg PO DAILY 03/05/20 04/12/20 lisinopril 40 mg tablet 40 mg PO DAILY 03/05/20 04/12/20 Previous Rx's Medication Instructions Recorded cyclobenzaprine 10 mg tablet 10 mg PO TID PRN #14 tab 03/26/20 hydroxyzine pamoate 25 mg capsule 25 mg PO BID PRN #60 cap 03/26/20 docusate sodium 100 mg PO BID #20 cap 04/08/20 oxycodone 5 mg PO Q6H PRN #20 tab 04/08/20 hydrocodone-acetaminophen [[place]] 1 tab PO Q4-6H PRN #10 tab 04/12/20 amoxicillin 500 mg PO BID #14 cap 04/16/20 amoxicillin 500 mg PO BID 7 Days #140 ml 04/16/20 Allergies Allergy/AdvReac Type Severity Reaction Status Date / Time No Known Drug Allergies Allergy Verified 04/12/20 12:07 Review of Systems Review of Systems Narrative: GENERAL: Denies chills,fever HEENT: Denies throat pain RESPIRATORY: Denies dyspnea, cough, wheezing CARDIOVASCULAR: Denies chest pain, palpitations GASTROINTESTINAL: Denies nausea, vomiting MUSCULOSKELETAL: Denies extremity pain, injury SKIN: No rash, no laceration, no pruritus NEUROLOGIC: Denies weakness, dizziness, headache, numbness 8 point review of systems is negative except for those stated above and HPI Patient History Medical History Facet arthropathy, lumbar Fractures High blood cholesterol High blood pressure Multilevel foraminal stenosis Scoliosis (and kyphoscoliosis), idiopathic Social History household members: none Smoking Status: Never smoker alcohol intake: former Smoking Status: Never smoker alcohol intake frequency: 0-2 drinks per day Substance Use Type: does not use Exam Initial Vital Signs Initial Vital Signs: Vital Signs Temperature 97.9 F 04/16/20 02:52 Pulse Rate 103 H 04/16/20 02:52 Respiratory Rate 20 04/16/20 02:52 Blood Pressure 204/109 H 04/16/20 02:52 Pulse Oximetry 98 04/16/20 02:52 GENERAL: Well-appearing, well-nourished and in no acute distress. Patient is having some dental pain on left lower jaw. He has very mild lymphadenopathy submandibular area no erythema tender to touch. No dental cavity no dental abscess CARDIOVASCULAR: peripheral pulses in tact, cap refill <2 sec RESPIRATORY: No respiratory distress, speaks in full sentences without difficulty EXTREMITIES: Normal range of motion, no clubbing or edema. Neurovascularly intact NEUROLOGICAL: Cranial nerves II through XII grossly intact. Normal gait and speech. SKIN: Warm, dry, no petechiae, no rashes or lesions. Course Orders Ordered: Discontinued Medications Amoxicillin (Amoxicillin 250 Mg Prepack) 1 bottle MISC SEEINSTR ONE Stop: 04/16/20 03:04 Last Admin: 04/16/20 03:17 Dose: 1 bottle Documented by: GENNA Ketorolac Tromethamine (Ketorolac 60 Mg/2 Ml Vial) 30 mg IM NOW ONE Stop: 04/16/20 03:04 Last Admin: 04/16/20 03:17 Dose: 30 mg Documented by: GENNA Vital Signs Vital signs: Vital Signs - 8 hr 04/16/20 02:52 04/16/20 03:21 Temperature 97.9 F Pulse Rate 103 H 78 Respiratory Rate 20 16 Blood Pressure 204/109 H 164/96 H Pulse Oximetry 98 97 Discharge Plan Departure Patient Disposition: Home Clinical Impression: Pain, dental Instructions: DI for Dental Pain Activity Restrictions/Additional Instructions: *You have been diagnosed with dental pain *What to do: At this time recommend antibiotics. *Continue to take medications as directed Amoxicillin 500 mg twice a day for 7 days Ibuprofen 800 mg every 8 hours if needed for gojv-ei-cjuwvnfi pain Tylenol 650 mg every 4-6 hours if needed for tfhz-tx-tuuefcie pain *Follow up with your primary care provider in 2-3 days *Return to ER if you should have increasing neck swelling, pain, dental pain, facial swelling, erythema or any new, worsening or concerning symptoms Prescriptions: New amoxicillin 250 mg/5 mL suspension for reconstitution 500 mg PO BID 7 Days Qty: 140 RF: 0 amoxicillin 500 mg capsule 500 mg PO BID Qty: 14 RF: 0 No Action hydroxyzine pamoate [Vistaril] 25 mg capsule 25 mg PO BID PRN (Reason: pain (scale score 4-6)) Qty: 60 RF: 1 cyclobenzaprine 10 mg tablet 10 mg PO TID PRN (Reason: muscle spasm) Qty: 14 RF: 0 oxycodone 5 mg tablet 5 mg PO Q6H PRN (Reason: post operative pain) Qty: 20 RF: 0 docusate sodium 100 mg capsule 100 mg PO BID Qty: 20 RF: 0 hydrocodone-acetaminophen [[place]] 5-325 mg tablet 1 tab PO Q4-6H PRN (Reason: pain) Qty: 10 RF: 0 lisinopril 40 mg tablet 40 mg PO DAILY RF: 0 amlodipine 5 mg tablet 5 mg PO DAILY RF: 0 Referrals: Katya Stevens MD [Primary Care Provider] -
[2020-04-16] MEDS: KETOROLAC 60 MG/2 ML VIAL 30 MG IM (03:17)
[2020-04-16] MEDS: AMOXICILLIN 250 MG PREPACK 1 BOTTLE MISC (03:17)
[2020-04-16 03:21] VITALS: BP 164/96; PULSE 78; RESP 16; O2SAT 97
== END 2020-04-16 03:25 | disposition home or self-care (01) ==
PROVIDERS: Emergency Provider Emergency Medicine; PCP Internal Medicine
DX: K08.89 Other specified disorders of teeth and supporting structures (principal)
CPT/HCPCS: 96372; 99281; 99283; J1885

== ENCOUNTER → 2020-05-15 18:38 | Outpatient (CLI) | payer OTHER, MEDICAID, SELFPAY ==
[2020-04-08 05:10] VITALS: BMI 26.2
--- NOTE | 2020-05-15 18:40 | DI.MRI.S_ITS ---
PROCEDURE: MR LUMBAR SPINE WO CON INDICATIONS: SCOLOSIS WITH CHRONIC LBP TECHNIQUE: Noncontrast sagittal T1 spin echo and T2 fast echo, sagittal STIR, axial T1 and T2 fast spin echo through the lumbar spine. In cases with scoliosis, additional coronal T2 fast spin echo may be performed. COMPARISON: [facility], CR, XR LUMBAR SPINE 2 OR 3 VIEWS, 12/29/2019, 15:41. FINDINGS: Image quality: Excellent. Alignment and Curvature: There is a rightward scoliotic curvature with apex at L2. Grade 1 retrolisthesis of T12 on L1, L1 on L2, L2 on L3, all measuring 2-3 mm. There is grade 1 anterolisthesis of L4 on L5 measuring 7 mm. Bone Marrow: Marrow is of normal overall signal. Moderate reactive endplate changes present at L1-L2. No acute vertebral body compression fractures. Spinal Cord: Conus medullaris terminates at the L1 level. Visualized cord demonstrates normal signal and size. Paraspinous Soft Tissues: No paravertebral masses. Discs: Moderate to severe desiccation is present throughout the lumbar spine most severe at L1-L2. L1-L2: Mild disc bulge with mild spinal stenosis. There is severe left and minimal to mild right foraminal narrowing with facet and ligamentum flavum hypertrophy. Minimal epidural lipomatosis is present. L2-L3: Mild disc bulge with mild spinal stenosis. Dxda-qt-zuhwepfx bilateral foraminal narrowing with facet and ligamentum flavum hypertrophy. Minimal epidural lipomatosis is present. L3-L4: Mild disc bulge including a right posterior paracentral asymmetric component. There is moderate to severe spinal stenosis. There is compromise of the right lateral recess secondary to asymmetric bulge. Moderate bilateral foraminal narrowing is present with facet and ligamentum flavum hypertrophy. L4-L5: Mild disc bulge with severe spinal stenosis and canal flattening. There is severe right foraminal narrowing with nerve root flattening of the exiting L4 on nerve root. Prominent facet and ligamentum flavum hypertrophy are present. L5-S1: Mild disc bulge with moderate spinal stenosis. Moderate to severe bilateral foraminal narrowing, right greater than left with facet and ligamentum flavum hypertrophy. IMPRESSION: 1. Multilevel disc bulges. 2. Multilevel spinal stenosis most severe at L4-5 secondary to disc bulge with contributing effect of facet/ligamentum flavum arthropathy. 3. Multilevel foraminal narrowing most severe at L4-5 secondary to anterolisthesis as well as facet/ligamentum flavum arthropathy. Dictated by: Harriet Castillo M.D. on 05/16/2020 at 11:19 Approved by: Harriet Castillo M.D. on 05/16/2020 at 11:52
== END ==
PROVIDERS: PCP Internal Medicine; Referring Provider Physical Medicine & Rehabilitation; Visit Provider Physical Medicine & Rehabilitation
DX: M47.816 Spondylosis without myelopathy or radiculopathy, lumbar region (principal); M51.26 Other intervertebral disc displacement, lumbar region; M51.27 Other intervertebral disc displacement, lumbosacral region; M48.061 Spinal stenosis, lumbar region without neurogenic claudication; M48.07 Spinal stenosis, lumbosacral region; M43.16 Spondylolisthesis, lumbar region; M41.20 Other idiopathic scoliosis, site unspecified
CPT/HCPCS: 72148

== ENCOUNTER 2020-05-27 15:50 | Emergency (ER) | payer OTHER, MEDICAID, SELFPAY ==
[2020-04-08 05:10] VITALS: BMI 26.2
[2020-05-27 16:02] VITALS: BP 178/105; PULSE 86; RESP 22; TEMP 36.7; O2SAT 100; BMI 24.3
--- NOTE | 2020-05-27 16:17 | ED_ITS ---
HPI - Back Pain/Injury General Chief Complaint: Back Pain/Injury Stated Complaint: something snapped in back last night, hurting Time Seen by Provider: 05/27/20 16:00 Source: patient Mode of arrival: Ambulatory Limitations: no limitations History of Present Illness HPI Narrative: 69-year-old male nonsmoker with extensive history of back problems and a recent MRI showing multilevel lumbar disc problems presents with a chief complaint of exacerbation of his chronic pain. He states that he was in bed last night and rolled over and felt immediate pain in his lower back that radiated upwards. He states the pain is worse with motion and improves with rest. He denies any numbness, tingling or weakness of his extremities. He denies any loss of control of bowel or bladder. He has had no fever or chills and does not take blood thinners. He denies any trauma. He has been under the care of local orthopedics and pain providers and is set up to be seen by [facility] for possible surgical intervention. He is otherwise well and free of complaint. He denies any chest pain or shortness of breath. He denies any neurologic symptoms such as blurred vision, trouble with speech or other MD Complaint: back pain and back injury Onset (ago): hour(s) Duration: constant Similar Symptoms Previously: Yes Location: lumbar spine and thoracic spine Severity: severe Quality: burning and sharp Radiation: other Severity scale (1-10): 7 Relieving factors: supine Exacerbating factors: movement Context: turning/twisting Associated symptoms: denies other symptoms Related Data Home Medications Medication Instructions Recorded Confirmed amlodipine 5 mg tablet 5 mg PO DAILY 03/05/20 04/12/20 lisinopril 40 mg tablet 40 mg PO DAILY 03/05/20 04/12/20 Previous Rx's Medication Instructions Recorded cyclobenzaprine 10 mg tablet 10 mg PO TID PRN #14 tab 03/26/20 hydroxyzine pamoate 25 mg capsule 25 mg PO BID PRN #60 cap 03/26/20 docusate sodium 100 mg PO BID #20 cap 04/08/20 amoxicillin 500 mg PO BID #14 cap 04/16/20 diclofenac sodium 75 mg 75 mg PO BID #60 tab 05/10/20 tablet,delayed release tramadol 50 mg tablet 50 mg PO BID PRN #60 tab 05/10/20 cyclobenzaprine 10 mg PO TID PRN #14 tab 05/27/20 gabapentin 300 mg PO BEDTIME #14 cap 05/27/20 hydrocodone-acetaminophen 1 tab PO Q4-6H PRN #10 tab 05/27/20 methylprednisolone [Medrol (Dejan)] See Rx Instructions .ROUTE 05/27/20 .COMPLEX #21 ea Allergies Allergy/AdvReac Type Severity Reaction Status Date / Time No Known Drug Allergies Allergy Verified 05/27/20 16:06 Review of Systems Constitutional Constitutional: Denies chills, Denies fatigue, Denies fever(s), Denies frequent falls, Denies lethargy and Denies weakness Eyes Eyes: Denies change in vision, Denies eye discharge, Denies irritation and Denies loss of vision ENT Ears, Nose, Mouth, and Throat: Denies change in voice, Denies dizziness, Denies neck pain, Denies sore throat and Denies throat swelling Cardiovascular Cardiovascular: Denies chest pain, Denies irregular heart rhythm, Denies lightheadedness, Denies palpitations, Denies dyspnea, Denies dyspnea on exertion and Denies orthopnea Respiratory Respiratory: Denies cough, Denies dyspnea, Denies dyspnea on exertion and Denies wheezing Gastrointestinal Gastrointestinal: Denies abdominal pain, Denies change in bowel habits, Denies diarrhea, Denies nausea and Denies vomiting Musculoskeletal Musculoskeletal: Reports back pain, Denies neck pain and Denies numbness Integumentary/Breasts Skin/Breast: Denies pruritus, Denies erythema, Denies rash and Denies wounds Neurologic Neurologic: Denies behavioral changes, Denies confusion, Denies dizziness, Denies frequent falls, Denies loss of vision, Denies numbness and Denies weakness Psychiatric Psychiatric: Denies anxiety, Denies behavioral changes, Denies confusion, Denies depression, Denies homicidal ideation and Denies suicidal ideation Endocrine Endocrine: Denies fatigue, Denies flushing and Denies palpitations Hematologic/Lymphatic Hematologic/Lymphatic: Denies easy bruising Allergic/Immunologic Allergic/Immunologic: Denies urticaria, Denies throat swelling and Denies wheezing Patient History Medical History Facet arthropathy, lumbar Fractures High blood cholesterol High blood pressure Multilevel foraminal stenosis Scoliosis (and kyphoscoliosis), idiopathic Social History household members: none Smoking Status: Never smoker alcohol intake: former Smoking Status: Never smoker alcohol intake frequency: 0-2 drinks per day Substance Use Type: does not use Exam Narrative Exam Narrative: GENERAL 69 year old patient appears stated age. Well-nourished, well-developed patient, in moderate distress. Clearly in pain, ambulated to the department on his own. No drop foot HEAD: Atraumatic. Normocephalic. EYES: Pupils equal round and reactive. Extraocular motions intact. No scleral icterus. No injection or drainage. ENT: Nose without bleeding, purulent drainage. Throat without erythema, tonsillar hypertrophy or exudate. Airway patent. NECK: Trachea midline. Non tender CARDIOVASCULAR: Regular rate and rhythm without murmurs, gallops, or rubs. RESPIRATORY: Clear to auscultation. Breath sounds equal bilaterally. No wheezes, rales, or rhonchi. GASTROINTESTINAL: Abdomen soft, non-tender, nondistended. EXTREMITIES: No edema or joint tenderness. BACK: slubber tender but free of any obvious external abnormalities. Patient exam notes decreased range of motion and muscle spasm, but no CVA tenderness, or vertebral point tenderness. There are no symptoms of cauda equina such as saddle anesthesia, and decreased reflexes, decreased sensation or strength.. NEURO: AOx3. SKIN: No rash or erythema of visible areas Initial Vital Signs Initial Vital Signs: Vital Signs Temperature 98.1 F 05/27/20 16:02 Pulse Rate 86 05/27/20 16:02 Respiratory Rate 22 05/27/20 16:02 Blood Pressure 178/105 H 05/27/20 16:02 Pulse Oximetry 100 05/27/20 16:02 Course Orders Ordered: Discontinued Medications Hydrocodone Bitart/Acetaminophen (Hydrocodone/Acet 5/325 Prepack) 1 bottle MISC SEEINSTR ONE Stop: 05/27/20 16:21 Last Admin: 05/27/20 16:31 Dose: 1 bottle Documented by: LAUREN Cyclobenzaprine HCl (Cyclobenzaprine 10 Mg Prepack) 1 bottle MISC SEEINSTR ONE Stop: 05/27/20 16:21 Last Admin: 05/27/20 16:31 Dose: 1 bottle Documented by: LAUREN Gabapentin (Gabapentin 300 Mg Capsule) 300 mg PO NOW ONE Stop: 05/27/20 16:21 Last Admin: 05/27/20 16:31 Dose: 300 mg Documented by: LAUREN Vital Signs Vital signs: Vital Signs - 8 hr 05/27/20 16:02 Temperature 98.1 F Pulse Rate 86 Respiratory Rate 22 Blood Pressure 178/105 H Pulse Oximetry 100 MDM - Back Pain/Injury MDM Narrative Medical decision making narrative: Multiple etiologies of back pain considered including; Epidural abscess, cauda equina, mass occupying lesion, and other considered but thought unlikely based on history and physical exam. MRI from May 15 reviewed. No red flag symptoms such as loss of bowel or bladder, lower extremity weakness, fever or use of blood thinners noted. Return precautions given and questions answered to his apparent satisfaction Discharge Plan Departure Patient Disposition: Home Clinical Impression: Back pain Qualifiers: Back pain location: low back pain Chronicity: acute Back pain laterality: midline Sciatica presence: without sciatica Qualified Code(s): M54.5 - Low back pain Instructions: DI for Low Back Pain, DI for Thoracic Back Pain Activity Restrictions/Additional Instructions: *You have been diagnosed with [acute on chronic lumbar and thoracic back pain. Thankfully your history and physical exam would suggest there is no spinal cord involvement or other neurosurgical emergency] *What to do: *Take medications as directed: Prescriptions have been sent to [facility] in [place]. DO NOT TAKE ULTRAM along with Hydrocodone as they work similarly and could lead to overdose. *Follow up with your primary care provider in 2-3 days, call for an appointment. Let them know you were seen in the Emergency Department and that we ask that you be seen in follow up *Return to ER if you should have any new, worsening or concerning symptoms, such as [increased pain, loss of control of bowel or bladder, numbness, tingling or weakness of 1 of her legs or other bothersome symptoms] Prescriptions: New cyclobenzaprine 10 mg tablet 10 mg PO TID PRN (Reason: muscle spasm) Qty: 14 RF: 0 hydrocodone-acetaminophen 5-325 mg tablet 1 tab PO Q4-6H PRN (Reason: pain) Qty: 10 RF: 0 gabapentin 300 mg capsule 300 mg PO BEDTIME Qty: 14 RF: 0 methylprednisolone [Medrol (Dejan)] 4 mg tablets,dose pack See Rx Instructions .ROUTE .COMPLEX Qty: 21 RF: 0 No Action hydroxyzine pamoate [Vistaril] 25 mg capsule 25 mg PO BID PRN (Reason: pain (scale score 4-6)) Qty: 60 RF: 1 cyclobenzaprine 10 mg tablet 10 mg PO TID PRN (Reason: muscle spasm) Qty: 14 RF: 0 diclofenac sodium 75 mg tablet,delayed release (DR/EC) 75 mg PO BID Qty: 60 RF: 2 tramadol 50 mg tablet 50 mg PO BID PRN (Reason: pain) Qty: 60 RF: 1 docusate sodium 100 mg capsule 100 mg PO BID Qty: 20 RF: 0 amoxicillin 500 mg capsule 500 mg PO BID Qty: 14 RF: 0 lisinopril 40 mg tablet 40 mg PO DAILY RF: 0 amlodipine 5 mg tablet 5 mg PO DAILY RF: 0 Referrals: Katya Stevens MD [Primary Care Provider] -
[2020-05-27] MEDS: HYDROCODONE/ACET 5/325 PREPACK 1 BOTTLE MISC (16:31)
[2020-05-27] MEDS: CYCLOBENZAPRINE 10 MG PREPACK 1 BOTTLE MISC (16:31)
[2020-05-27] MEDS: GABAPENTIN 300 MG CAPSULE PO (16:31)
[2020-05-27 16:45] VITALS: BP 184/100; PULSE 82; RESP 18; O2SAT 99
== END 2020-05-27 16:45 | disposition home or self-care (01) ==
PROVIDERS: Emergency Provider Emergency Medicine; PCP Internal Medicine; Referring Provider Physical Medicine & Rehabilitation
DX: M54.5 Low back pain (principal)
CPT/HCPCS: 99283

== ENCOUNTER 2020-05-28 19:28 | Emergency (ER) | payer OTHER, MEDICAID, SELFPAY ==
[2020-04-08 05:10] VITALS: BMI 26.2
[2020-05-28 19:36] VITALS: BP 169/100; PULSE 95; RESP 17; TEMP 37.7; O2SAT 99; BMI 24.3
[2020-05-28 20:32] VITALS: BP 178/106; PULSE 88; RESP 24; TEMP 36.9; O2SAT 98
--- NOTE | 2020-05-28 20:36 | PC.NURSE ---
Patient states he heard a pop in his back Thursday and that Tramadol is not working anymore. He has a follow up appointment at [facility] on 06/05/20 but needs help to get through the pain between now and then.
--- NOTE | 2020-05-28 21:07 | ED_ITS ---
HPI - Back Pain/Injury General Chief Complaint: Back Pain/Injury Stated Complaint: Lower Back Pain, Radiating Pain Time Seen by Provider: 05/28/20 21:03 Source: patient Mode of arrival: Ambulatory Limitations: no limitations History of Present Illness HPI Narrative: Patient is a 69-year-old male with a known lower back issue. Is being followed by and as follow-up with spine surgeons at [facility]. Was seen here in the emergency department a couple days ago for lower back pain. Determined that it was musculoskeletal in low concern for acute surgical issues. He states that today he returns for continued discomfort. He states that is his normal lower back pain. He has not any fevers. No urinary symptoms. He states that the tramadol that his primary doctor's given him is not working for symptoms. Related Data Home Medications Medication Instructions Recorded Confirmed amlodipine 5 mg tablet 5 mg PO DAILY 03/05/20 04/12/20 lisinopril 40 mg tablet 40 mg PO DAILY 03/05/20 04/12/20 Previous Rx's Medication Instructions Recorded cyclobenzaprine 10 mg tablet 10 mg PO TID PRN #14 tab 03/26/20 hydroxyzine pamoate 25 mg capsule 25 mg PO BID PRN #60 cap 03/26/20 docusate sodium 100 mg PO BID #20 cap 04/08/20 amoxicillin 500 mg PO BID #14 cap 04/16/20 diclofenac sodium 75 mg 75 mg PO BID #60 tab 05/10/20 tablet,delayed release tramadol 50 mg tablet 50 mg PO BID PRN #60 tab 05/10/20 cyclobenzaprine 10 mg PO TID PRN #14 tab 05/27/20 gabapentin 300 mg PO BEDTIME #14 cap 05/27/20 hydrocodone-acetaminophen 1 tab PO Q4-6H PRN #10 tab 05/27/20 methylprednisolone [Medrol (Dejan)] See Rx Instructions .ROUTE 05/27/20 .COMPLEX #21 ea Allergies Allergy/AdvReac Type Severity Reaction Status Date / Time No Known Drug Allergies Allergy Verified 05/27/20 16:06 Review of Systems Constitutional Constitutional: Denies fever(s) and Denies headache(s) ENT Ears, Nose, Mouth, and Throat: Denies headache(s) Cardiovascular Cardiovascular: Denies chest pain and Denies dyspnea Respiratory Respiratory: Denies dyspnea Gastrointestinal Gastrointestinal: Denies abdominal pain, Denies nausea and Denies vomiting Genitourinary Genitourinary: Denies dysuria, Denies urinary hesitancy, Denies urinary incontinence and Denies urinary urgency Genitourinary: Denies dysuria, Denies urinary incontinence, Denies urinary hesitancy and Denies urinary urgency Musculoskeletal Musculoskeletal: Reports back pain Integumentary/Breasts Skin/Breast: Denies rash Neurologic Neurologic: Denies confusion, Denies headache(s) and Denies paresthesias Psychiatric Psychiatric: Denies confusion Hematologic/Lymphatic On Anticoagulants: No Allergic/Immunologic Allergic/Immunologic: Denies urticaria Patient History Medical History Facet arthropathy, lumbar Fractures High blood cholesterol High blood pressure Multilevel foraminal stenosis Scoliosis (and kyphoscoliosis), idiopathic Social History household members: none Smoking Status: Never smoker alcohol intake: former Smoking Status: Never smoker alcohol intake frequency: 0-2 drinks per day Substance Use Type: does not use Exam Initial Vital Signs Initial Vital Signs: Vital Signs Temperature 99.9 F H 05/28/20 19:36 Pulse Rate 95 H 05/28/20 19:36 Respiratory Rate 17 05/28/20 19:36 Blood Pressure 169/100 H 05/28/20 19:36 Pulse Oximetry 99 05/28/20 19:36 Const General: cooperative Limitations: mental status not altered HENMT Head: normal to inspection and normocephalic Resp Effort & Inspection: normal respiratory effort Cardio Rate: regular rate Back/Spine/Pelvis Thoracic/Lumbar Spine: paraspinal tenderness Skin Lesions: no lesions Rashes: no rashes Extrem General: normal to inspection Psych Appearance: grossly normal and well kempt Course Orders Ordered: Discontinued Medications Hydrocodone Bitart/Acetaminophen (Hydrocodone/Acet 5/325 Prepack) 1 bottle MISC SEEINSTR ONE Stop: 05/28/20 21:27 Last Admin: 05/28/20 21:42 Dose: 1 bottle Documented by: GENNA Hydromorphone HCl (Hydromorphone 1 Mg Inj) 1 mg IM NOW ONE Stop: 05/28/20 21:08 Last Admin: 05/28/20 21:13 Dose: 1 mg Documented by: JAKE Vital Signs Vital signs: Vital Signs - 8 hr 05/28/20 21:56 Temperature 98.2 F Pulse Rate 69 Respiratory Rate 18 Blood Pressure 153/92 H Pulse Oximetry 98 MDM - Back Pain/Injury MDM Narrative Medical decision making narrative: Patient reports a vast improvement of his symptoms after medications here in the ER. Low suspicion for cauda equina. No indication for radiologic studies based on his presentation today. Who is instructed to keep all of his scheduled medical appointments. He is given return precautions. Expressed understanding and agreement. Patient ambulated on the emergency department. Discharge Plan Departure Patient Disposition: Home Clinical Impression: Chronic back pain Instructions: DI for Low Back Pain Activity Restrictions/Additional Instructions: Keep all of your scheduled medical appointments. Take all of your medications as directed. Contact your primary provider for follow-up. Prescriptions: No Action hydroxyzine pamoate [Vistaril] 25 mg capsule 25 mg PO BID PRN (Reason: pain (scale score 4-6)) Qty: 60 RF: 1 cyclobenzaprine 10 mg tablet 10 mg PO TID PRN (Reason: muscle spasm) Qty: 14 RF: 0 diclofenac sodium 75 mg tablet,delayed release (DR/EC) 75 mg PO BID Qty: 60 RF: 2 tramadol 50 mg tablet 50 mg PO BID PRN (Reason: pain) Qty: 60 RF: 1 docusate sodium 100 mg capsule 100 mg PO BID Qty: 20 RF: 0 cyclobenzaprine 10 mg tablet 10 mg PO TID PRN (Reason: muscle spasm) Qty: 14 RF: 0 hydrocodone-acetaminophen 5-325 mg tablet 1 tab PO Q4-6H PRN (Reason: pain) Qty: 10 RF: 0 gabapentin 300 mg capsule 300 mg PO BEDTIME Qty: 14 RF: 0 methylprednisolone [Medrol (Dejan)] 4 mg tablets,dose pack See Rx Instructions .ROUTE .COMPLEX Qty: 21 RF: 0 amoxicillin 500 mg capsule 500 mg PO BID Qty: 14 RF: 0 lisinopril 40 mg tablet 40 mg PO DAILY RF: 0 amlodipine 5 mg tablet 5 mg PO DAILY RF: 0 Referrals: Katya Stevens MD [Primary Care Provider] -
[2020-05-28] MEDS: HYDROMORPHONE 1 MG INJ IM (21:13)
[2020-05-28] MEDS: HYDROCODONE/ACET 5/325 PREPACK 1 BOTTLE MISC (21:42)
[2020-05-28 21:56] VITALS: BP 153/92; PULSE 69; RESP 18; TEMP 36.8; O2SAT 98
== END 2020-05-28 21:58 | disposition home or self-care (01) ==
PROVIDERS: Emergency Provider Emergency Medicine; PCP Internal Medicine
DX: M54.5 Low back pain (principal)
CPT/HCPCS: 96372; 99283; J1170

== ENCOUNTER 2020-05-29 10:50 | Emergency (ER) | payer OTHER, MEDICAID, SELFPAY ==
[2020-04-08 05:10] VITALS: BMI 26.2
[2020-05-29 11:00] VITALS: BP 182/103; PULSE 73; RESP 15; TEMP 36.6; O2SAT 98; BMI 24.3
--- NOTE | 2020-05-29 11:20 | PC.NURSE ---
gerardt resting on stretcher with eyes closed. Snoreing audible at nurses station
--- NOTE | 2020-05-29 11:35 | ED_ITS ---
HPI - Back Pain/Injury General Chief Complaint: Back Pain/Injury Stated Complaint: pain in back everywhere Time Seen by Provider: 05/29/20 10:51 Source: patient Mode of arrival: Ambulatory Limitations: no limitations History of Present Illness HPI Narrative: 69-year-old male nonsmoker with extensive history of back problems and a recent MRI showing multilevel lumbar disc problems presents with a chief complaint of exacerbation of his chronic pain. This is his 3rd visit in the past few days for the same. He denies any chest pain or shortness of breath, he denies any abdominal pain, nausea or vomiting. The pain in his in his back and not being helped by the medications he has been given. A recent MRI shows lumbar disc problem. He has had no fever chills. Does not take blood thinners. He has no problems controlling bowel or bladder. He denies radiation into his lower extremities and denies any numbness, tingling or weakness. His pain is worse with motion and improves with rest. He has an upcoming appointment his primary care provider and also neuro surgery at [facility]. Complaint: back pain Onset (ago): day(s) Duration: constant Similar Symptoms Previously: Yes Location: lumbar spine and thoracic spine Severity: severe Quality: burning, sharp and stabbing Radiation: none Relieving factors: none Exacerbating factors: movement Context: turning/twisting Associated symptoms: denies other symptoms Related Data Home Medications Medication Instructions Recorded Confirmed amlodipine 5 mg tablet 5 mg PO DAILY 03/05/20 04/12/20 lisinopril 40 mg tablet 40 mg PO DAILY 03/05/20 04/12/20 Previous Rx's Medication Instructions Recorded cyclobenzaprine 10 mg tablet 10 mg PO TID PRN #14 tab 03/26/20 hydroxyzine pamoate 25 mg capsule 25 mg PO BID PRN #60 cap 03/26/20 docusate sodium 100 mg PO BID #20 cap 04/08/20 amoxicillin 500 mg PO BID #14 cap 04/16/20 diclofenac sodium 75 mg 75 mg PO BID #60 tab 05/10/20 tablet,delayed release tramadol 50 mg tablet 50 mg PO BID PRN #60 tab 05/10/20 cyclobenzaprine 10 mg PO TID PRN #14 tab 05/27/20 gabapentin 300 mg PO BEDTIME #14 cap 05/27/20 hydrocodone-acetaminophen 1 tab PO Q4-6H PRN #10 tab 05/27/20 methylprednisolone [Medrol (Dejan)] See Rx Instructions .ROUTE 05/27/20 .COMPLEX #21 ea oxycodone 5 mg PO Q4-6H PRN #20 tab 05/29/20 Allergies Allergy/AdvReac Type Severity Reaction Status Date / Time No Known Drug Allergies Allergy Verified 05/27/20 16:06 Review of Systems Constitutional Constitutional: Denies chills, Denies fatigue, Denies fever(s), Denies frequent falls, Denies lethargy and Denies weakness Eyes Eyes: Denies change in vision, Denies eye discharge, Denies irritation and Denies loss of vision ENT Ears, Nose, Mouth, and Throat: Denies change in voice, Denies dizziness, Denies neck pain, Denies sore throat and Denies throat swelling Cardiovascular Cardiovascular: Denies chest pain, Denies irregular heart rhythm, Denies lightheadedness, Denies palpitations, Denies dyspnea, Denies dyspnea on exertion and Denies orthopnea Respiratory Respiratory: Denies cough, Denies dyspnea, Denies dyspnea on exertion and Denies wheezing Gastrointestinal Gastrointestinal: Denies abdominal pain, Denies change in bowel habits, Denies diarrhea, Denies nausea and Denies vomiting Musculoskeletal Musculoskeletal: Reports back pain, Denies neck pain and Denies numbness Integumentary/Breasts Skin/Breast: Denies pruritus, Denies erythema, Denies rash and Denies wounds Neurologic Neurologic: Denies behavioral changes, Denies confusion, Denies dizziness, Denies frequent falls, Denies loss of vision, Denies numbness and Denies weakne ss Psychiatric Psychiatric: Denies anxiety, Denies behavioral changes, Denies confusion, Denies depression, Denies homicidal ideation and Denies suicidal ideation Endocrine Endocrine: Denies fatigue, Denies flushing and Denies palpitations Hematologic/Lymphatic Hematologic/Lymphatic: Denies easy bruising Allergic/Immunologic Allergic/Immunologic: Denies urticaria, Denies throat swelling and Denies wheezing Patient History Medical History Facet arthropathy, lumbar Fractures High blood cholesterol High blood pressure Multilevel foraminal stenosis Scoliosis (and kyphoscoliosis), idiopathic Social History household members: none Smoking Status: Never smoker alcohol intake: former Smoking Status: Never smoker alcohol intake frequency: 0-2 drinks per day Substance Use Type: does not use Exam Narrative Exam Narrative: GENERAL: [69] year old patient appears stated age. Well- nourished, well-developed patient, in mild distress. Obviously uncomfortable HEAD: Atraumatic. Normocephalic. EYES: Pupils equal round and reactive. Extraocular motions intact. No scleral icterus. No injection or drainage. ENT: Nose without bleeding, purulent drainage. Throat without erythema, tonsillar hypertrophy or exudate. Airway patent. NECK: Trachea midline. Non tender CARDIOVASCULAR: Regular rate and rhythm without murmurs, gallops, or rubs. RESPIRATORY: Clear to auscultation. Breath sounds equal bilaterally. No wheezes, rales, or rhonchi. GASTROINTESTINAL: Abdomen soft, non-tender, nondistended. EXTREMITIES: No edema or joint tenderness. BACK: cell tender but free of any obvious external abnormalities. Patient exam notes decreased range of motion and muscle spasm, but no CVA tenderness, or vertebral point tenderness. There are no symptoms of cauda equina such as saddle anesthesia, and decreased reflexes, decreased sensation or strength. NEURO: AOx3. SKIN: No rash or erythema of visible areas Initial Vital Signs Initial Vital Signs: Vital Signs Temperature 97.8 F 05/29/20 11:00 Pulse Rate 73 05/29/20 11:00 Respiratory Rate 15 05/29/20 11:00 Blood Pressure 182/103 H 05/29/20 11:00 Pulse Oximetry 98 05/29/20 11:00 Course Orders Ordered: ED Orders 05/29/20 11:54 Complete Blood Count AUTO DIFF Stat Comprehensive Metabolic Panel Stat 05/29/20 11:55 CT angio chest abdomen pelvis Stat Discontinued Medications Oxycodone/Acetaminophen (Oxycodone/Acetaminophen 5/325 Tablet) 1 tab PO NOW ONE Stop: 05/29/20 13:54 Last Admin: 05/29/20 14:01 Dose: 1 tab Documented by: JEREMIE Vital Signs Vital signs: Vital Signs - 8 hr 05/29/20 14:05 Pulse Rate 78 Respiratory Rate 18 Blood Pressure 173/101 H Pulse Oximetry 97 MDM - Back Pain/Injury Lab Data Result diagrams: 05/29/20 11:54 05/29/20 11:54 Labs: Lab Results 05/29/20 05/29/20 Range/Units 11:54 11:54 WBC 6.6 (4.5-11.0) X10^3/uL RBC 4.09 L (4.5-5.9) X10^6/uL Hgb 13.7 (13.5-17.5) g/dL Hct 40.5 L (41-53) % MCV 98.9 (80-100) fL MCH 33.5 (26-34) PG MCHC 33.8 (30-36) % RDW 13.0 (11.6-14.8) % Plt Count 271 (150-400) X10^3/uL Neut % (Auto) 62.2 (50-75) % Lymph % (Auto) 26.5 (25-40) % [place] % (Auto) 8.3 (3-14) % Eos % (Auto) 1.8 L (2-4) % Baso % (Auto) 1.2 (0-2) % Neut # (Auto) 4100 (7841-7868) /uL Lymph # (Auto) 1700 (1199-7811) /uL [place] # (Auto) 500 (0-900) /uL Eos # (Auto) 100 (0-450) /uL Baso # (Auto) 100 (0-100) /uL Sodium 136 L (137-145) mmol/L Potassium 4.7 (3.4-5.1) mmol/L Chloride 103 (98-107) mmol/L Carbon Dioxide 24 (22-32) mmol/L BUN 25 H (9-20) mg/dL Creatinine 0.82 (0.66-1.25) mg/dL Estimated GFR > 60.0 (>60) mL/min BUN/Creatinine Ratio 30.5 H (6-22) Glucose 118 H (80-110) mg/dL Calcium 9.3 (8.4-10.2) mg/dL Total Bilirubin 0.4 (0.2-1.3) mg/dL AST 45 (17-59) IU/L ALT 47 (<50) IU/L Alkaline Phosphatase 93 (38-126) U/L Total Protein 7.4 (6.3-8.2) g/dL Albumin 4.5 (3.5-5.0) g/dL Globulin 2.9 (1.7-4.1) g/dL Albumin/Globulin Ratio 1.6 (1.0-2.8) Imaging Data CT scan - chest: Radiologist's Impression: Chart Viewer Diagnostics DATE TYPE STATUS REF RANGE/AUTHOR Hx Today 11:55 Harriet Castillo 05/15/20 18:40 Harriet Castillo 04/12/20 12:00 Saw Villa 04/08/20 01:30 Tonia,Neo 04/08/20 01:29 Tonia,Neo 04/08/20 01:29 Belden,Neo 04/08/20 01:29 Belden,Neo 03/19/20 23:59 Yadira,Juliet 03/05/20 11:28 Dago Benson Alvin W 69, M0 1950 [facility], Main ED 193.04cm 90.718kg BMI: 24.3kg/m? Back Pain/Injury Search Chart No Data to Display Total Pending Discharge ONSET Today 14:05 Krzysztof Zimmerman 69 M [address] [id number] Scan ReportAddendum Patient: Krzysztof Zimmerman WMR#: [id number]: 1950Acct:[id number]/Sex: 69 / MDate of Service: 05/29/20Loc: EDAccession Number: [id number] Procedure: CT angio chest abdomen pelvis Ordering Provider: Oracio Moya D.O. ADDENDUMThis report includes an Addendum and supersedes previous reports for this exam. PROCEDURE: CT ANGIO CHEST ABDOMEN PELVIS INDICATIONS: severe back pain, HTN emergency, worse/different than MSK TECHNIQUE: Precontrast 5 mm thick sections acquired from the lung apices to the iliac crests. After the administration of intravenous contrast, 2.5 mm thick sections again acquired from the lung apices to the iliac crests. Maximum intensity projection (MIP) oblique sagittal and coronal reformats were then acquired. For radiation dose reduction, the follo wing was used: automated exposure control. COMPARISON: None. FINDINGS: Image quality: Excellent. AORTA: No areas of hemodynamically significant stenosis, vascular occlusion or dissection. No aneurysmal dilation. There are [id number] scattered areas of wall calcification consistent with atherosclerotic disease. CHEST: Lungs and pleura: No acute airspace opacities. No pleural effusions or pneumothorax. Central and peripheral airways are patent and normal in caliber. Mediastinum: Heart size is normal. No pericardial effusion. No mediastinal or hilar adenopathy by size criteria. Central pulmonary arteries are normal in size. Esophagus is normal in caliber. No hiatal hernias. Bones and chest wall: No axillary adenopathy by size criteria. Thyroid gland is unremarkable. No suspicious bony lesions. No vertebral body compression fractures. ABDOMEN: Vasculature: Celiac trunk and mesenteric arteries are patent. Renal arteries are also patent. Solid organs: Liver is enlarged with steatosis. Gallbladder is unremarkable . Biliary system is non dilated. Pancreas enhances normally. Spleen is normal in size and enhancement. No adrenal nodules. Both kidneys are mildly atrophic, without hydronephrosis. Parapelvic cysts are noted on the left. Peritoneum and bowel: No free fluid or air. Bowel loops are normal in caliber and wall thickness. Nodes and vessels: No retroperitoneal or mesenteric adenopathy by size criteria. Inferior vena cava is normal in morphology. Miscellaneous: No ventral hernias. PELVIS: Genitourinary: Bladder wall thickness is normal. Miscellaneous: No inguinal hernias or adenopathy. No ventral hernias. Bones: No suspicious bony lesions. No vertebral body compression fractures. IMPRESSION: 1. Aorta is unremarkable. 2. No visualized acute process. Dictated by: Harriet Castillo M.D. on 05/29/2020 at 12:37 Approved by: Harriet Castillo M.D. on 05/29/2020 at 13:38 ADDENDUM: COMPARISON: [facility], CT, CT ABDOMEN PELVIS W CON, 04/12/2020, 12:57. [facility], CT, CT CHEST ABD PEL W CON, 04/08/2020, 1:42. In addition to the above, the previously identified focus of perifissural nodular opacity within the right lung measuring approximately 6 mm is unchanged. Dictated by: Harriet Castillo M.D. on 05/29/2020 at 14:25 Approved by: Harriet Castillo M.D. on 05/29/2020 at 14:26 Addendum Dictated By:Harriet Castillo MDAddendum Signed By:Addendum Cosigned By:DD/ TD/TT: 05/29/20 PROCEDURE: CT ANGIO CHEST ABDOMEN PELVIS INDICATIONS: severe back pain, HTN emergency, worse/different than MSK TECHNIQUE: Precontrast 5 mm thick sections acquired from the lung apices to the iliac crests. After the administration of intravenous contrast, 2.5 mm thick sections again acquired from the lung apices to the iliac crests. Maximum intensity projection (MIP) oblique sagittal and coronal reformats were then acquired. For radiation dose reduction, the following was used: automated exposure control. COMPARISON: None. FINDINGS: Image quality: Excellent. AORTA: No areas of hemodynamically significant stenosis, vascular occlusion or dissection. No aneurysmal dilation. There are [id number] scattered areas of wall calcification consistent with atherosclerotic disease. CHEST: Lungs and pleura: No acute airspace opacities. No pleural effusions or pneumothorax. Central and peripheral airways are patent and normal in caliber. Mediastinum: Heart size is normal. No pericardial effusion. No mediastinal or hilar adenopathy by size criteria. Central pulmonary arteries are normal in size. Esophagus is normal in caliber. No hiatal hernias. Bones and chest wall: No axillary adenopathy by size criteria. Thyroid gland is unremarkable. No suspicious bony lesions. No vertebral body compression fractures. ABDOMEN: Vasculature: Celiac trunk and mesenteric arteries are patent. Renal arteries are also patent. Solid organs: Liver is enlarged with steatosis. Gallbladder is unremarkable . Biliary system is non dilated. Pancreas enhances normally. Spleen is normal in size and enhancement. No adrenal nodules. Both kidneys are mildly atrophic, without hydronephrosis. Parapelvic cysts are noted on the left. Peritoneum and bowel: No free fluid or air. Bowel loops are normal in caliber and wall thickness. Nodes and vessels: No retroperitoneal or mesenteric adenopathy by size criteria. Inferior vena cava is normal in morphology. Miscellaneous: No ventral hernias. PELVIS: Genitourinary: Bladder wall thickness is normal. Miscellaneous: No inguinal hernias or adenopathy. No ventral hernias. Bones: No suspicious bony lesions. No vertebral body compression fractures. IMPRESSION: 1. Aorta is unremarkable. 2. No visualized acute process. Dictated by: Harriet Castillo M.D. on 05/29/2020 at 12:37 Approved by: Harriet Castillo M.D. on 05/29/2020 at 13:38 MDM Narrative Medical decision making narrative: Multiple etiologies for patient's symptoms considered including: [lumbar disk pain vs. epidural abscess/hematoma vs. AAA vs. dissection vs. other] Patient's symptoms improved over duration of stay with above-stated therapies. Findings and discharge diagnosis discussed with patient/family followed by verbalization of understanding Return precautions discussed with patient/family whom verbalize understanding. Discharge Plan Departure Patient Disposition: Home Clinical Impression: Back pain Qualifiers: Back pain location: low back pain Chronicity: chronic Back pain laterality: midline Sciatica presence: without sciatica Qualified Code(s): M54.5 - Low back pain Instructions: DI for Low Back Pain, DI for Thoracic Back Pain Activity Restrictions/Additional Instructions: *You have been diagnosed with [acute on chronic back pain, very reassuring exam, labs and imaging today.] *What to do: *Take medications as directed: Prescription sent to [facility] at your request * please call your doctors at [facility] today and let them know the been seen in the emergency department multiple times and we ST be seen in follow-up. *Return to ER if you should have any new, worsening or concerning symptoms, such as [loss of control of bowel or bladder, fever, chills, weakness of the lower extremity or other bothersome symptoms You have been prescribed narcotic medications. While on these medications you cannot drive or operate heavy machinery. Additionally you cannot sign legal documents or perform any duties such as this. Many people get constipated on narcotic medications so it would be advisable to discuss stool softeners with the pharmacist when you pick up operator your prescription. Please understand that we cannot provide further refills of narcotics or controlled substances through the ED and your pain management will need to be through your Primary Care Provider] Prescriptions: New oxycodone 5 mg tablet 5 mg PO Q4-6H PRN (Reason: pain) Qty: 20 RF: 0 No Action hydroxyzine pamoate [Vistaril] 25 mg capsule 25 mg PO BID PRN (Reason: pain (scale score 4-6)) Qty: 60 RF: 1 cyclobenzaprine 10 mg tablet 10 mg PO TID PRN (Reason: muscle spasm) Qty: 14 RF: 0 diclofenac sodium 75 mg tablet,delayed release (DR/EC) 75 mg PO BID Qty: 60 RF: 2 tramadol 50 mg tablet 50 mg PO BID PRN (Reason: pain) Qty: 60 RF: 1 docusate sodium 100 mg capsule 100 mg PO BID Qty: 20 RF: 0 cyclobenzaprine 10 mg tablet 10 mg PO TID PRN (Reason: muscle spasm) Qty: 14 RF: 0 hydrocodone-acetaminophen 5-325 mg tablet 1 tab PO Q4-6H PRN (Reason: pain) Qty: 10 RF: 0 gabapentin 300 mg capsule 300 mg PO BEDTIME Qty: 14 RF: 0 methylprednisolone [Medrol (Dejan)] 4 mg tablets,dose pack See Rx Instructions .ROUTE .COMPLEX Qty: 21 RF: 0 amoxicillin 500 mg capsule 500 mg PO BID Qty: 14 RF: 0 lisinopril 40 mg tablet 40 mg PO DAILY RF: 0 amlodipine 5 mg tablet 5 mg PO DAILY RF: 0 Referrals: Katya Stevens MD [Primary Care Provider] -
--- NOTE | 2020-05-29 11:55 | DI.CT.S_ITS ---
PROCEDURE: CT ANGIO CHEST ABDOMEN PELVIS INDICATIONS: severe back pain, HTN emergency, worse/different than MSK TECHNIQUE: Precontrast 5 mm thick sections acquired from the lung apices to the iliac crests. After the administration of intravenous contrast, 2.5 mm thick sections again acquired from the lung apices to the iliac crests. Maximum intensity projection (MIP) oblique sagittal and coronal reformats were then acquired. For radiation dose reduction, the following was used: automated exposure control. COMPARISON: None. FINDINGS: Image quality: Excellent. AORTA: No areas of hemodynamically significant stenosis, vascular occlusion or dissection. No aneurysmal dilation. There are [id number] scattered areas of wall calcification consistent with atherosclerotic disease. CHEST: Lungs and pleura: No acute airspace opacities. No pleural effusions or pneumothorax. Central and peripheral airways are patent and normal in caliber. Mediastinum: Heart size is normal. No pericardial effusion. No mediastinal or hilar adenopathy by size criteria. Central pulmonary arteries are normal in size. Esophagus is normal in caliber. No hiatal hernias. Bones and chest wall: No axillary adenopathy by size criteria. Thyroid gland is unremarkable. No suspicious bony lesions. No vertebral body compression fractures. ABDOMEN: Vasculature: Celiac trunk and mesenteric arteries are patent. Renal arteries are also patent. Solid organs: Liver is enlarged with steatosis. Gallbladder is unremarkable . Biliary system is non dilated. Pancreas enhances normally. Spleen is normal in size and enhancement. No adrenal nodules. Both kidneys are mildly atrophic, without hydronephrosis. Parapelvic cysts are noted on the left. Peritoneum and bowel: No free fluid or air. Bowel loops are normal in caliber and wall thickness. Nodes and vessels: No retroperitoneal or mesenteric adenopathy by size criteria. Inferior vena cava is normal in morphology. Miscellaneous: No ventral hernias. PELVIS: Genitourinary: Bladder wall thickness is normal. Miscellaneous: No inguinal hernias or adenopathy. No ventral hernias. Bones: No suspicious bony lesions. No vertebral body compression fractures. IMPRESSION: 1. Aorta is unremarkable. 2. No visualized acute process. Dictated by: Harriet Castillo M.D. on 05/29/2020 at 12:37 Approved by: Harriet Castillo M.D. on 05/29/2020 at 13:38
[2020-05-29 12:01] LABS: Add Manual Diff / Slide Review NO; Basophils Absolute Auto 100 /uL (0-100); Basophils Percent Auto 1.2 % (0-2); Eosinophils Absolute Auto 100 /uL (0-450); Eosinophils Percent Auto 1.8 % (2-4); Hematocrit 40.5 % (41-53); Hemoglobin 13.7 g/dL (13.5-17.5); Lymphocytes Absolute Auto 1700 /uL (1100-4500); Lymphocytes Percent Auto 26.5 % (25-40); Mean Corpuscular HGB Conc 33.8 % (30-36); Mean Corpuscular Hemoglobin 33.5 PG (26-34); Mean Corpuscular Volume 98.9 fL (80-100); Monocytes Absolute Auto 500 /uL (0-900); Monocytes Percent Auto 8.3 % (3-14); Neutrophils Absolute Auto 4100 /uL (1500-7000); Neutrophils Percent Auto 62.2 % (50-75); Platelet Count 271 X10^3/uL (150-400); Red Blood Cell Count 4.09 X10^6/uL (4.5-5.9); White Blood Cell Count 6.6 X10^3/uL (4.5-11.0)
[2020-05-29 12:27] LABS: Alanine Aminotransferase 47 IU/L (<50); Albumin 4.5 g/dL (3.5-5.0); Albumin Globulin Ratio 1.6 (1.0-2.8); Alkaline Phosphatase 93 U/L (38-126); Aspartate Aminotransferase 45 IU/L (17-59); BUN Creatinine Ratio 30.5 (6-22); Bilirubin Total 0.4 mg/dL (0.2-1.3); Blood Urea Nitrogen 25 mg/dL (9-20); Calcium 9.3 mg/dL (8.4-10.2); Carbon Dioxide 24 mmol/L (22-32); Chloride 103 mmol/L (98-107); Estimated Glomerular Filt Rate > 60.0 mL/min (>60); Globulin 2.9 g/dL (1.7-4.1); Glucose 118 mg/dL (80-110); HEMOLYSIS < 15 (0-50); Potassium 4.7 mmol/L (3.4-5.1); Sodium 136 mmol/L (137-145); Total Protein 7.4 g/dL (6.3-8.2)
--- NOTE | 2020-05-29 12:56 | PC.NURSE ---
patient ambulated self to restroom. denies needs at this time.
[2020-05-29] MEDS: OXYCODONE/ACETAMINOPHEN 5/325 TABLET 1 TAB PO (14:01)
[2020-05-29 14:05] VITALS: BP 173/101; PULSE 78; RESP 18; O2SAT 97
== END 2020-05-29 14:08 | disposition home or self-care (01) ==
PROVIDERS: Emergency Provider Emergency Medicine; PCP Internal Medicine
DX: M54.5 Low back pain (principal)
CPT/HCPCS: 36415; 71275; 74174; 80053; 85025; 99283; 99284; Q9967

== ENCOUNTER 2020-08-23 02:57 | Emergency (ER) | payer OTHER, MEDICAID, SELFPAY ==
[2020-04-08 05:10] VITALS: BMI 26.2
--- NOTE | 2020-08-23 03:21 | ED.GENADULT ---
HPI - General Adult General Chief complaint: Back Pain/Injury Stated complaint: twisted lower back/pain Time Seen by Provider: 08/23/20 03:15 History of Present Illness HPI narrative: Patient is a 70-year-old male with known chronic lumbar spine issues has been seen multiple times in our department in the past for similar symptoms. He is being followed by Neurosurgery and is scheduled to have a nerve ablation later this week at [facility]. He is here for evaluation of acute on chronic left-sided back discomfort. He does not describe any specific trauma. Has not know anything that would have caused his symptoms to worsen. No radiation to his legs. No bowel or bladder changes. No fevers. Did try some Tylenol and ibuprofen in his other pain medicine at home prior to arrival without any improvement of symptoms. Related Data Home Medications Medication Instructions Recorded Confirmed amlodipine 5 mg tablet 5 mg PO DAILY 03/05/20 04/12/20 lisinopril 40 mg tablet 40 mg PO DAILY 03/05/20 04/12/20 Previous Rx's Medication Instructions Recorded cyclobenzaprine 10 mg tablet 10 mg PO TID PRN #14 tab 03/26/20 hydroxyzine pamoate 25 mg capsule 25 mg PO BID PRN #60 cap 03/26/20 (Vistaril) docusate sodium 100 mg capsule 100 mg PO BID #20 cap 04/08/20 amoxicillin 500 mg capsule 500 mg PO BID #14 cap 04/16/20 diclofenac sodium 75 mg 75 mg PO BID #60 tab 05/10/20 tablet,delayed release tramadol 50 mg tablet 50 mg PO BID PRN #60 tab 05/10/20 cyclobenzaprine 10 mg tablet 10 mg PO TID PRN #14 tab 05/27/20 gabapentin 300 mg capsule 300 mg PO BEDTIME #14 cap 05/27/20 hydrocodone 5 mg-acetaminophen 325 1 tab PO Q4-6H PRN #10 tab 05/27/20 mg tablet methylprednisolone 4 mg tablets in See Rx Instructions .ROUTE 05/27/20 a dose pack (Medrol (Dejan)) .COMPLEX #21 ea oxycodone 5 mg tablet 5 mg PO Q4-6H PRN #20 tab 05/29/20 Allergies Allergy/AdvReac Type Severity Reaction Status Date / Time No Known Drug Allergies Allergy Verified 08/23/20 03:24 Review of Systems Constitutional Constitutional: Denies fever(s) Gastrointestinal Comments: No GI symptoms Genitourinary Comments: No urinary symptoms Musculoskeletal Musculoskeletal: Reports back pain Integumentary/Breasts Skin/Breast: Reports system reviewed and no additional complaints, except as documented Neurologic Neurologic: Reports paresthesias Hematologic/Lymphatic On Anticoagulants: No Allergic/Immunologic Allergic/Immunologic: Reports system reviewed and no additional complaints, except as documented Patient History Medical History Facet arthropathy, lumbar Fractures High blood cholesterol High blood pressure Multilevel foraminal stenosis Scoliosis (and kyphoscoliosis), idiopathic Social History household members: none Smoking Status: Never smoker alcohol intake: former Smoking Status: Never smoker alcohol intake frequency: 0-2 drinks per day Substance Use Type: does not use Exam Initial Vital Signs Initial Vital Signs: Vital Signs Pulse Rate 87 08/23/20 03:24 Respiratory Rate 18 08/23/20 03:24 Blood Pressure 210/119 H 08/23/20 03:24 Pulse Oximetry 98 08/23/20 03:24 Const General: cooperative and healthy appearing [facility] Head: normal to inspection and normocephalic Resp Effort & Inspection: normal respiratory effort Cardio Rate: regular rate Back/Spine/Pelvis Other: Patient reports tenderness to palpation on left-sided thoracolumbar region paraspinal. Skin General: no rashes or lesions noted Neuro General: patient alert, patient awake and patient oriented x3 Extrem General: normal to inspection and capillary refill normal Psych Appearance: grossly normal and well kempt Course Orders Ordered: Discontinued Medications Hydromorphone HCl (Hydromorphone 1 Mg Inj) 1 mg IM NOW ONE Stop: 08/23/20 03:25 Last Admin: 08/23/20 03:31 Dose: 1 mg Documented by: [email or web address] Ketorolac Tromethamine (Ketorolac 30 Mg/Ml Vial) 30 mg IM NOW ONE Stop: 08/23/20 03:25 Last Admin: 08/23/20 03:30 Dose: 30 mg Documented by: [email or web address] Vital Signs Vital signs: Vital Signs - 8 hr 08/23/20 03:24 08/23/20 03:39 Temperature 98.4 F Pulse Rate 87 Respiratory Rate 18 Blood Pressure 210/119 H Pulse Oximetry 98 Medical Decision Making MDM Narrative Medical decision making narrative: Patient reports improvement of symptoms in the above-stated therapies and is asking to be discharged home. I feel we can hold on any radiologic studies. Low suspicion for cauda equina. He does have follow-up with his neurosurgeon later this week and he was instructed to keep this. He is also informed that pain management needs to be provided by his primary provider or auto customize painter. Discharge Plan Departure Patient Disposition: Home Clinical Impression: Lumbar back pain Instructions: DI for Low Back Pain Activity Restrictions/Additional Instructions: Recommend you continue all of your medications as directed. I also recommend you keep all of your scheduled medical appointments. Long-term management of chronic pain needs to be from either your primary doctor or a auto customize painter. Return to the emergency department for any new symptoms Prescriptions: No Action hydroxyzine pamoate [Vistaril] 25 mg capsule 25 mg PO BID PRN (Reason: pain (scale score 4-6)) Qty: 60 RF: 1 cyclobenzaprine 10 mg tablet 10 mg PO TID PRN (Reason: muscle spasm) Qty: 14 RF: 0 diclofenac sodium 75 mg tablet,delayed release (DR/EC) 75 mg PO BID Qty: 60 RF: 2 tramadol 50 mg tablet 50 mg PO BID PRN (Reason: pain) Qty: 60 RF: 1 docusate sodium 100 mg capsule 100 mg PO BID Qty: 20 RF: 0 cyclobenzaprine 10 mg tablet 10 mg PO TID PRN (Reason: muscle spasm) Qty: 14 RF: 0 hydrocodone-acetaminophen 5-325 mg tablet 1 tab PO Q4-6H PRN (Reason: pain) Qty: 10 RF: 0 gabapentin 300 mg capsule 300 mg PO BEDTIME Qty: 14 RF: 0 methylprednisolone [Medrol (Dejan)] 4 mg tablets,dose pack See Rx Instructions .ROUTE .COMPLEX Qty: 21 RF: 0 amoxicillin 500 mg capsule 500 mg PO BID Qty: 14 RF: 0 oxycodone 5 mg tablet 5 mg PO Q4-6H PRN (Reason: pain) Qty: 20 RF: 0 lisinopril 40 mg tablet 40 mg PO DAILY RF: 0 amlodipine 5 mg tablet 5 mg PO DAILY RF: 0 Referrals: Katya Stevens MD [Primary Care Provider] -
[2020-08-23 03:24] VITALS: BP 210/119; PULSE 87; RESP 18; O2SAT 98; BMI 25.0
[2020-08-23] MEDS: KETOROLAC 30 MG/ML VIAL IM (03:30)
[2020-08-23] MEDS: HYDROMORPHONE 1 MG INJ IM (03:31)
[2020-08-23 03:39] VITALS: TEMP 36.9
[2020-08-23 04:15] VITALS: BP 195/95; PULSE 80; RESP 18; O2SAT 97
--- NOTE | 2020-08-23 04:17 | PC.NURSE ---
stated he felt better and wanted to go home.
== END 2020-08-23 04:17 | disposition home or self-care (01) ==
PROVIDERS: Emergency Provider Emergency Medicine; PCP Internal Medicine
DX: M54.5 Low back pain (principal)
CPT/HCPCS: 96372; 99283; J1170; J1885

== ENCOUNTER → 2020-11-13 12:05 | Outpatient (CLI) | payer OTHER, MEDICAID, SELFPAY ==
[2020-04-08 05:10] VITALS: BMI 26.2
--- NOTE | 2020-11-13 | DI.CT.S_ITS ---
PROCEDURE: CT LUMBAR SPINE WO CON INDICATIONS: Radiculopathy, lumbar region left TECHNIQUE: Noncontrast 3 mm thick sections acquired from the T12 level to the sacrum. Sagittal and coronal reformats were constructed. For radiation dose reduction, the following was used: automated exposure control. COMPARISON: [facility], MR, MR LUMBAR SPINE WO CON, 05/15/2020, 18:43. [facility], CT, CT ANGIO CHEST ABDOMEN PELVIS, 05/29/2020, 12:05. FINDINGS: Image quality: Excellent. Bones: There is moderate dextroconvex scoliosis. There is minimal retrolisthesis at T12-L1, with mild retrolisthesis at L1-L2. Minimal retrolisthesis is seen at L2-L3. Grade 1 L4-5 anterolisthesis is seen, without associated pars defects. No acute vertebral body compression fractures. No suspicious lytic or blastic bony lesions. No pars defects. T11-T12: Moderate loss of disc height is seen. Posteriorly projected endplate osteophytes are seen. Mild disc bulge can be seen. Are no significant T12-L1: Moderate loss of disc height is seen. Vacuum disc phenomenon is seen at this level. Moderate disc bulge is seen, which is eccentric to the left side. Mild facet joint hypertrophy is seen. There is [id number] right-sided and moderate left-sided neural foraminal narrowing seen. Mild central canal narrowing is seen. L1-L2: Moderate to severe loss of disc height is seen on the left side. Vacuum disc phenomenon is seen at this level. Bridging endplate osteophytes are seen on the left. Moderate disc bulge is seen, which is eccentric to left. There is at least moderate bilateral neural foraminal narrowing seen, left worse than right. Mild to moderate central canal narrowing is seen. L2-L3: The disc height is relatively well preserved. At least moderate disc bulge is seen at this level. Mild to moderate facet hypertrophy is seen. There is moderate left-sided and no significant right-sided neural foraminal narrowing seen. Moderate central canal narrowing is seen. L3-L4: The disc height is well preserved. At least moderate disc bulge is seen. There is a central disc protrusion. There is a bubble of gas seen within the right subarticular region, as on series 3, image 48, which is likely related to gas within a synovial cyst, although it is nonspecific. There is moderate to severe bilateral neural foraminal narrowing seen. Moderate to severe central canal narrowing is seen. Prominent facet hypertrophy is seen. L4-L5: Moderate loss of disc height is seen on the right side. Bridging endplate osteophytes are seen on the right. Vacuum disc phenomenon is seen at this level. Moderate to prominent disc bulge can be seen. There is prominent facet hypertrophy seen at this level, right worse than left. There is moderate to severe bilateral neural foraminal narrowing seen. Severe central canal narrowing is seen. L5-S1: The disc height is relatively well preserved. A mild bulge Moderate facet joint hypertrophy is seen. Mild to moderate bilateral neural foraminal narrowing can be seen. Mild to moderate central canal narrowing is seen. Soft tissues: No retroperitoneal masses or hematomas. Visualized aorta is normal in caliber. Atherosclerotic calcification is noted. IMPRESSION: Multiple levels of relatively prominent lumbar spine degenerative change are seen, which are overall worst on these images at the L4-L5 level. The degenerative changes are overall better seen on the prior MRI examination. There is moderate dextroconvex scoliosis. Dictated by: Neo Randall M.D. on 11/13/2020 at 12:29 Approved by: Neo Randall M.D. on 11/13/2020 at 12:36
== END ==
PROVIDERS: PCP Internal Medicine; Referring Provider Orthopaedic Surgery; Visit Provider Orthopaedic Surgery
DX: M47.26 Other spondylosis with radiculopathy, lumbar region (principal); M47.27 Other spondylosis with radiculopathy, lumbosacral region; M41.86 Other forms of scoliosis, lumbar region; M43.16 Spondylolisthesis, lumbar region
CPT/HCPCS: 72131

== ENCOUNTER 2021-03-06 10:43 | Emergency (ER) | payer OTHER, MEDICAID, SELFPAY ==
[2020-04-08 05:10] VITALS: BMI 26.2
[2021-03-06 11:05] VITALS: BP 201/120; PULSE 97; RESP 18; TEMP 36.8; O2SAT 99; BMI 25.0
--- NOTE | 2021-03-06 11:10 | ED_ITS ---
HPI - Back Pain/Injury General Chief Complaint: Back Pain/Injury Stated Complaint: Back pain, waiting on injection Time Seen by Provider: 03/06/21 11:10 History of Present Illness HPI Narrative: 70M nonsmoker with HTN and chronic back pain (currently managed at [facility]) presents with a chief complaint of gradually worsening lumbar pain. He denies any new injury or trauma. He has had no fever or chills. He denies any trouble controlling bowel or bladder. He denies any blood thinners. He is not dizzy nor weak or lightheaded. His pain does not radiate, he denies numbness, weakness or tingling. He states that this pain feels like it did about 1 year ago, he has been in contact with his doctors at [facility] in has an upcoming injection but is afraid he cannot make it through until then. He has been on steroids and gabapentin and states they did nothing for him and does not want another prescription for those Related Data Home Medications Medication Instructions Recorded Confirmed amlodipine 5 mg tablet 5 mg PO DAILY 03/05/20 04/12/20 lisinopril 40 mg tablet 40 mg PO DAILY 03/05/20 04/12/20 Previous Rx's Medication Instructions Recorded cyclobenzaprine 10 mg tablet 10 mg PO TID PRN #14 tab 03/26/20 hydroxyzine pamoate 25 mg capsule 25 mg PO BID PRN #60 cap 03/26/20 (Vistaril) docusate sodium 100 mg capsule 100 mg PO BID #20 cap 04/08/20 amoxicillin 500 mg capsule 500 mg PO BID #14 cap 04/16/20 diclofenac sodium 75 mg 75 mg PO BID #60 tab 05/10/20 tablet,delayed release tramadol 50 mg tablet 50 mg PO BID PRN #60 tab 05/10/20 cyclobenzaprine 10 mg tablet 10 mg PO TID PRN #14 tab 05/27/20 gabapentin 300 mg capsule 300 mg PO BEDTIME #14 cap 05/27/20 hydrocodone 5 mg-acetaminophen 325 1 tab PO Q4-6H PRN #10 tab 05/27/20 mg tablet methylprednisolone 4 mg tablets in See Rx Instructions .ROUTE 05/27/20 a dose pack (Medrol (Dejan)) .COMPLEX #21 ea oxycodone 5 mg tablet 5 mg PO Q4-6H PRN #20 tab 05/29/20 ketorolac 10 mg tablet 10 mg PO Q6H PRN #14 tab 03/06/21 oxycodone 5 mg tablet 5 mg PO Q4-6H PRN #10 tab 03/06/21 Allergies Allergy/AdvReac Type Severity Reaction Status Date / Time No Known Drug Allergies Allergy Verified 08/23/20 03:24 Review of Systems Review of Systems Narrative: GENERAL: Denies chills, fatigue, malaise, fever, sweats. HEENT: Denies sinus pain, ear pain, sore throat, difficulty swallowing, dizziness. RESPIRATORY: Denies dyspnea, cough, wheezing, hemoptysis, sputum. CARDIOVASCULAR: Denies chest pain, palpitations, orthopnea, edema, GASTROINTESTINAL: Denies nausea, vomiting, abdominal pain, diarrhea, constipation, melena. : Denies dysuria, frequency, incontinence, hematuria, urinary retention. MUSCULOSKELETAL: See HPI SKIN: Denies rash, skin lesions, or other NEUROLOGIC: Denies weakness, headache, numbness, change in speech, confusion, seizures, incoordination. PSYCHIATRIC: No concerning psychosocial issues. 12 point review of systems is negative except for those stated above Patient History Medical History Facet arthropathy, lumbar Fractures High blood cholesterol High blood pressure Multilevel foraminal stenosis Scoliosis (and kyphoscoliosis), idiopathic Social History household members: none Smoking Status: Never smoker alcohol intake: former Smoking Status: Never smoker alcohol intake frequency: holidays/special occasions only Substance Use Type: does not use Exam Narrative Exam Narrative: GENERAL: [70 year old patient appears stated age. Well-developed patient, in mild distress. HEAD: Atraumatic. Normocephalic. EYES: Pupils equal round and reactive. Extraocular motions intact. No scleral icterus. No injection or drainage. ENT: Nose without bleeding, purulent drainage. Throat without erythema, tonsillar hypertrophy or exudate. Airway patent. NECK: Trachea midline. Non tender CARDIOVASCULAR: Regular rate and rhythm without murmurs, gallops, or rubs. RESPIRATORY: Clear to auscultation. Breath sounds equal bilaterally. No wheezes, rales, or rhonchi. GASTROINTESTINAL: Abdomen soft, non-tender, nondistended. EXTREMITIES: No edema or joint tenderness. BACK: draw furnace tender but free of any obvious external abnormalities. Patient exam notes decreased range of motion and muscle spasm, but no CVA tenderness, or vertebral point tenderness. There are no symptoms of cauda equina such as saddle anesthesia, and decreased reflexes, decreased sensation or strength. NEURO: AOx3. SKIN: No rash or erythema of visible areas Initial Vital Signs Initial Vital Signs: Vital Signs Temperature 98.3 F 03/06/21 11:05 Pulse Rate 97 H 03/06/21 11:05 Respiratory Rate 18 03/06/21 11:05 Blood Pressure 201/120 H 03/06/21 11:05 Pulse Oximetry 99 03/06/21 11:05 Course Orders Ordered: Discontinued Medications Hydromorphone HCl (Hydromorphone 1 Mg Inj) 1 mg IM NOW ONE Stop: 03/06/21 11:18 Last Admin: 03/06/21 11:23 Dose: 1 mg Documented by: STEFF Ketorolac Tromethamine (Ketorolac 30 Mg/Ml Vial) 30 mg IM NOW ONE Stop: 03/06/21 11:18 Last Admin: 03/06/21 11:23 Dose: 30 mg Documented by: STEFF Vital Signs Vital signs: Vital Signs - 8 hr 03/06/21 11:05 Temperature 98.3 F Pulse Rate 97 H Respiratory Rate 18 Blood Pressure 201/120 H Pulse Oximetry 99 MDM - Back Pain/Injury MDM Narrative Medical decision making narrative: Multiple etiologies of back pain considered including; Epidural abscess, cauda equina, mass occupying lesion, and other considered, however history and physical exam are very reassuring, no evidence of a neurosurgical emergency or present. Patient has significant improvement in symptoms with above-stated therapies. He is given return precautions and questions have been answered to his apparent satisfaction Discharge Plan Departure Patient Disposition: Home Clinical Impression: Acute exacerbation of chronic low back pain Instructions: DI for Low Back Pain Activity Restrictions/Additional Instructions: *You have been diagnosed with [acute on chronic low back pain. Your history, physical exam are reassuring and there is no indication of a neurosurgical emergency present at this time *What to do: *Please continue to take your regular medications as directed. [x ] New medication prescriptions sent to your pharmacy: [ [facility] in [place]] [ ] New medication written as a paper prescription [ ] No new medications given *Please follow up with your primary care provider in 2-3 days, call for an appointment. Let them know you were seen in the Emergency Department and that we ask that you be seen in follow up. We will electronically transmit a record of today's note if your PCP is in our system *If you do not have a primary care provider please contact the [facility] Resource line at [phone]. They will ask some questions about your medical history and help get you set up with a doctor in the community. *Return to Emergency Department if you should have any new, worsening or concerning symptoms, such as [fever greater than 101 F, shaking chills, worsening pain, persistent vomiting or other bothersome symptoms] You have been prescribed a short course of narcotic medications. These are potentially dangerous and addictive medications that should be used carefully. While on these medications you cannot drive or operate heavy machinery. Additionally, you cannot sign legal documents or perform any duties such as this. 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 Please understand that we cannot provide further refills of narcotics or controlled substances through the ED and your pain management will need to be through your Primary Care Provider Prescriptions: New ketorolac 10 mg tablet 10 mg PO Q6H PRN (Reason: pain) Qty: 14 0RF oxycodone 5 mg tablet 5 mg PO Q4-6H PRN (Reason: pain) Qty: 10 0RF No Action hydroxyzine pamoate [Vistaril] 25 mg capsule 25 mg PO BID PRN (Reason: pain (scale score 4-6)) Qty: 60 1RF cyclobenzaprine 10 mg tablet 10 mg PO TID PRN (Reason: muscle spasm) Qty: 14 0RF diclofenac sodium 75 mg tablet,delayed release (DR/EC) 75 mg PO BID Qty: 60 2RF tramadol 50 mg tablet 50 mg PO BID PRN (Reason: pain) Qty: 60 1RF docusate sodium 100 mg capsule 100 mg PO BID Qty: 20 0RF cyclobenzaprine 10 mg tablet 10 mg PO TID PRN (Reason: muscle spasm) Qty: 14 0RF hydrocodone-acetaminophen 5-325 mg tablet 1 tab PO Q4-6H PRN (Reason: pain) Qty: 10 0RF gabapentin 300 mg capsule 300 mg PO BEDTIME Qty: 14 0RF methylprednisolone [Medrol (Dejan)] 4 mg tablets,dose pack See Rx Instructions .ROUTE .COMPLEX Qty: 21 0RF Rx Instructions: orally per package directions amoxicillin 500 mg capsule 500 mg PO BID Qty: 14 0RF oxycodone 5 mg tablet 5 mg PO Q4-6H PRN (Reason: pain) Qty: 20 0RF lisinopril 40 mg tablet 40 mg PO DAILY 0RF amlodipine 5 mg tablet 5 mg PO DAILY 0RF Referrals: Katya Stevens MD [Primary Care Provider] -
[2021-03-06] MEDS: HYDROMORPHONE 1 MG INJ IM (11:23)
[2021-03-06] MEDS: KETOROLAC 30 MG/ML VIAL IM (11:23)
== END 2021-03-06 12:10 | disposition home or self-care (01) ==
PROVIDERS: Emergency Provider Emergency Medicine; PCP Internal Medicine
DX: M54.50 Low back pain, unspecified (principal); G89.29 Other chronic pain
CPT/HCPCS: 96372; 99283; J1170; J1885

== ENCOUNTER 2021-03-17 18:09 | Emergency (ER) | payer OTHER, MEDICAID, SELFPAY ==
[2020-04-08 05:10] VITALS: BMI 26.2
[2021-03-17 18:10] VITALS: BP 194/97; PULSE 95; RESP 19; TEMP 36.4; O2SAT 96; BMI 24.6
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
--- NOTE | 2021-03-17 18:21 | DI.RAD.S_ITS ---
PROCEDURE: XR SHOULDER LT MIN 2V INDICATIONS: PAIN TECHNIQUE: 2 views of the shoulder were acquired. COMPARISON: None. FINDINGS: Bones: Humeral head is elevated concerning for chronic rotator cuff tear. Moderate acromioclavicular joint and mild glenohumeral joint osteoarthritis. Soft tissues: No suspicious soft tissue calcifications. IMPRESSION: 1. Elevated left humeral head concerning for chronic rotator cuff tear. 2. Osteoarthritis as described above. Dictated by: Juliet May MD, PhD on 03/25/2021 at 12:45 Approved by: Juliet May MD, PhD on 03/25/2021 at 12:48
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
--- NOTE | 2021-03-17 18:25 | DI.CT.S_ITS ---
PROCEDURE: CT CHEST WO CON INDICATIONS: Trauma TECHNIQUE: Noncontrast 5 mm thick sections acquired from the pulmonary apices to the posterior costophrenic angles. 1 mm lung window, 5 mm thick coronal and sagittal and 7 mm axial MIP reformats were then acquired. For radiation dose reduction, the following was used: automated exposure control, adjustment of mA and/or kV according to patient size. COMPARISON: [facility], CT, CT ANGIO CHEST ABDOMEN PELVIS, 05/29/2020, 12:05. FINDINGS: Image quality: Excellent. Lungs and pleura: There are multiple irregular peripheral ground-glass nodular infiltrates consistent with atypical pneumonia. There is a 7 mm solid nodule in the right middle lobe. No acute air space opacities. No pleural effusions or pneumothorax. Central and peripheral airways are patent and normal in caliber. Mediastinum: Heart size is normal. Mild coronary artery calcification. No pericardial effusion. No mediastinal adenopathy by size criteria. Thoracic aorta and central pulmonary arteries are normal in size. Esophagus is normal in caliber. No hiatal hernia. Bones and chest wall: No suspicious bony lesions. No vertebral body compression fractures. No axillary or supraclavicular adenopathy by size criteria. Thyroid gland is normal . Abdomen: Hepatic steatosis. There are parapelvic cyst versus renal pelviectasis in left kidney, unchanged. IMPRESSION: 1. Bilateral peripheral ground-glass infiltrates suspicious for atypical pneumonia. Recommend clinical correlation. 2. A 7 mm nodule in the right middle lobe. Recommend follow-up chest CT in 3 months. Please see follow-up recommendation. Fleischner Society criteria for SOLID lung nodule followup. Nodule size (mm)Low-risk patientHigh-risk patient?4No follow-up neededFollow-up at 12 mo; if no change, no further follow-up>0-8Auevom-ue CT at 12 mo; if no change, no further follow-up needed.Initial follow-up CT at 6-12 mo, then 18-24 mo if no change. >6-8Initial follow-up CT at 6-12 mo, then 18-24 mo if no change. Initial follow-up CT at 3-6 mo, then 9-12 mo and 24 mo if no change. >8Follow-up CT at 3, 9, 24 mo. Or PET and/or biopsy.Same as for low-risk pts. Dictated by: Angelito Villa M.D. on 03/17/2021 at 20:04 Approved by: Angelito Villa M.D. on 03/17/2021 at 20:10
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
[2021-03-17 19:11] LABS: Add Manual Diff / Slide Review NO; Basophils Absolute Auto 0 /uL (0-100); Basophils Percent Auto 0.4 % (0-2); Eosinophils Absolute Auto 0 /uL (0-450); Eosinophils Percent Auto 0.4 % (2-4); Hematocrit 35.8 % (41-53); Hemoglobin 12.7 g/dL (13.5-17.5); Lymphocytes Absolute Auto 1400 /uL (1100-4500); Lymphocytes Percent Auto 14.4 % (25-40); Mean Corpuscular HGB Conc 35.4 % (30-36); Mean Corpuscular Hemoglobin 34.2 PG (26-34); Mean Corpuscular Volume 96.5 fL (80-100); Monocytes Absolute Auto 900 /uL (0-900); Monocytes Percent Auto 9.1 % (3-14); Neutrophils Absolute Auto 7400 /uL (1500-7000); Neutrophils Percent Auto 75.7 % (50-75); Platelet Count 405 X10^3/uL (150-400); Red Blood Cell Count 3.71 X10^6/uL (4.5-5.9); Red Cell Distribution Width 12.9 % (11.6-14.8); White Blood Cell Count 9.8 X10^3/uL (4.5-11.0)
[2021-03-17] MEDS: KETOROLAC 30 MG/ML VIAL IV (19:14)
[2021-03-17 19:22] LABS: Alanine Aminotransferase 63 IU/L (<50); Albumin 4.3 g/dL (3.5-5.0); Albumin Globulin Ratio 1.3 (1.0-2.8); Alkaline Phosphatase 81 U/L (38-126); Aspartate Aminotransferase 41 IU/L (17-59); BUN Creatinine Ratio 20.9 (6-22); Bilirubin Total 0.7 mg/dL (0.2-1.3); Blood Urea Nitrogen 18 mg/dL (9-20); Calcium 9.3 mg/dL (8.4-10.2); Carbon Dioxide 30 mmol/L (22-32); Chloride 103 mmol/L (98-107); Estimated Glomerular Filt Rate > 60.0 mL/min (>60); Ethanol (ETOH) < 10 mg/dL; Globulin 3.3 g/dL (1.7-4.1); Glucose 98 mg/dL (80-110); HEMOLYSIS < 15 (0-50); Lipase 93 U/L (23-300); Potassium 3.2 mmol/L (3.4-5.1); Sodium 138 mmol/L (137-145); Total Protein 7.6 g/dL (6.3-8.2)
[2021-03-17] MEDS: fentaNYL 100 MCG/2 ML INJ 50 MCG IV (20:00)
[2021-03-17] MEDS: ACETAMINOPHEN 325 MG TABLET 975 MG PO (22:06)
[2021-03-17 22:14] VITALS: BP 170/90; PULSE 88; RESP 18; O2SAT 98
== END 2021-03-17 22:20 | disposition home or self-care (01) ==
PROVIDERS: Physician Assistant; Emergency Provider Emergency Medicine; PCP Internal Medicine
DX: S63.502A Unspecified sprain of left wrist, initial encounter (principal); R51.9 Headache, unspecified; S00.12XA Contusion of left eyelid and periocular area, initial encounter; M54.2 Cervicalgia; M25.561 Pain in right knee; R07.81 Pleurodynia; R03.0 Elevated blood-pressure reading, without diagnosis of hypertension; R42 Dizziness and giddiness; Y04.2XXA Assault by strike against or bumped into by another person, initial encounter
CPT/HCPCS: 36415; 70450; 71250; 72125; 73030; 73090; 73110; 73560; 80053; 80320; 83690; 85025; 93005; 96374; 96375; 99284; J1885; J3010

== ENCOUNTER 2021-08-13 02:30 | Emergency (ER) | payer MEDICARE, MEDICAID, SELFPAY ==
[2020-04-08 05:10] VITALS: BMI 26.2
[2021-08-13 03:15] VITALS: BP 179/92; PULSE 85; RESP 18; TEMP 36.2; O2SAT 98
--- NOTE | 2021-08-13 03:48 | ED.BACK ---
HPI - Back Pain/Injury General Chief Complaint: Back Pain/Injury Stated Complaint: Lt Shoulder Pain Time Seen by Provider: 08/13/21 03:41 Source: patient History of Present Illness HPI Narrative: 70M nonsmoker with HTN and chronic back pain (currently managed at [facility]) presents with a chief complaint of gradually worsening left shoulder, neck and upper back pain. He has been having issues for quite some time and states that he traditionally is well controlled with steroid injections but is currently having issues as his insurance has not covered 1 recently, however he does have a scheduled appointment in the next few weeks. He states that he has been on every medication you could imagine including steroids and gabapentin was used do not do much to help. He has not had any pain medications for the past few months. He denies any recent trauma or injury. He has had no fever or chills. He denies any neurologic symptoms such as blurred vision, dizziness, trouble with speech, swallowing or muscle strength. He presents by EMS requesting help with his pain. He states pain is worse with motion and improves with rest Related Data Home Medications Medication Instructions Recorded Confirmed amlodipine 5 mg tablet 5 mg PO DAILY 03/05/20 04/12/20 lisinopril 40 mg tablet 40 mg PO DAILY 03/05/20 04/12/20 Previous Rx's Medication Instructions Recorded cyclobenzaprine 10 mg tablet 10 mg PO TID PRN muscle spasm #14 03/26/20 tabs hydroxyzine pamoate 25 mg capsule 25 mg PO BID PRN pain (scale score 03/26/20 (Vistaril) 4-6) #60 caps docusate sodium 100 mg capsule 100 mg PO BID prevent constipation 04/08/20 #20 caps amoxicillin 500 mg capsule 500 mg PO BID #14 caps 04/16/20 diclofenac sodium 75 mg 75 mg PO BID #60 tabs 05/10/20 tablet,delayed release tramadol 50 mg tablet 50 mg PO BID PRN pain #60 tabs 05/10/20 cyclobenzaprine 10 mg tablet 10 mg PO TID PRN muscle spasm #14 05/27/20 tabs gabapentin 300 mg capsule 300 mg PO BEDTIME #14 caps 05/27/20 hydrocodone 5 mg-acetaminophen 325 1 tab PO Q4-6H PRN pain #10 tabs 05/27/20 mg tablet methylprednisolone 4 mg tablets in See Rx Instructions PO .COMPLEX 05/27/20 a dose pack (Medrol (Dejan)) #21 ea oxycodone 5 mg tablet 5 mg PO Q4-6H PRN pain #20 tabs 05/29/20 ketorolac 10 mg tablet 10 mg PO Q6H PRN pain #14 tabs 03/06/21 oxycodone 5 mg tablet 5 mg PO Q4-6H PRN pain #10 tabs 03/06/21 ketorolac 10 mg tablet 10 mg PO Q6H PRN pain #14 tabs 08/13/21 oxycodone 5 mg tablet 5 mg PO Q4-6H PRN pain #10 tabs 08/13/21 Allergies Allergy/AdvReac Type Severity Reaction Status Date / Time No Known Drug Allergies Allergy Verified 03/17/21 18:13 Review of Systems Review of Systems Narrative: GENERAL: Denies chills, fatigue, malaise, fever, sweats. HEENT: Denies sinus pain, ear pain, sore throat, difficulty swallowing, dizziness. RESPIRATORY: Denies dyspnea, cough, wheezing, hemoptysis, sputum. CARDIOVASCULAR: Denies chest pain, palpitations, orthopnea, edema, GASTROINTESTINAL: Denies nausea, vomiting, abdominal pain, diarrhea, constipation, melena. : Denies dysuria, frequency, incontinence, hematuria, urinary retention. MUSCULOSKELETAL: See HPI SKIN: Denies rash, skin lesions, or other NEUROLOGIC: See HPI PSYCHIATRIC: No concerning psychosocial issues. 12 point review of systems is negative except for those stated above Patient History Medical History Facet arthropathy, lumbar Fractures High blood cholesterol High blood pressure Multilevel foraminal stenosis Scoliosis (and kyphoscoliosis), idiopathic Social History household members: none Smoking Status: Former smoker alcohol intake: former Smoking Status: Former smoker alcohol intake frequency: holidays/special occasions only Substance Use Type: does not use Exam Narrative Exam Narrative: GENERAL: [71] year old patient appears stated age. Well-developed patient, in mild distress. Obviously uncomfortable, rubbing the left side of his neck and shoulder HEAD: Atraumatic. Normocephalic. EYES: Pupils equal round and reactive. Extraocular motions intact. No scleral icterus. No injection or drainage. ENT: Nose without bleeding, purulent drainage. Throat without erythema, tonsillar hypertrophy or exudate. Airway patent. NECK: Trachea midline. Tender to palpation in the left-sided paraspinal musculature, axial loading of the cervical spine does not worsen his pain. No measurable weakness CARDIOVASCULAR: Regular rate and rhythm without murmurs, gallops, or rubs. RESPIRATORY: Clear to auscultation. Breath sounds equal bilaterally. No wheezes, rales, or rhonchi. GASTROINTESTINAL: Abdomen soft, non-tender, nondistended. EXTREMITIES: No edema or joint tenderness. BACK: Nontender without deformity or crepitance. No flank tenderness. NEURO: AOx3. SKIN: No rash or erythema of visible areas Initial Vital Signs Initial Vital Signs: Vital Signs Temperature 97.2 F L 08/13/21 03:15 Pulse Rate 85 08/13/21 03:15 Respiratory Rate 18 08/13/21 03:15 Blood Pressure 179/92 H 08/13/21 03:15 Pulse Oximetry 98 08/13/21 03:15 Oxygen Delivery Method 08/13/21 03:15 Course Orders Ordered: Discontinued Medications Ketorolac Tromethamine (Ketorolac 30 Mg/Ml Vial) 30 mg IM NOW ONE Stop: 08/13/21 04:02 Last Admin: 08/13/21 04:11 Dose: 30 mg Documented By: DARIAN Oxycodone/Acetaminophen (Oxycodone/Apap 5/325 Prepack) 1 bottle MISC SEEINSTR ONE Stop: 08/13/21 04:02 Last Admin: 08/13/21 04:11 Dose: 1 bottle Documented By: DARIAN Vital Signs Vital signs: Vital Signs - 8 hr 08/13/21 03:15 Temperature 97.2 F L Pulse Rate 85 Respiratory Rate 18 Blood Pressure 179/92 H Pulse Oximetry 98 Oxygen Delivery Method Room Air MDM - Back Pain/Injury MDM Narrative Medical decision making narrative: Patient presents with acute on chronic left-sided neck and shoulder pain in the absence of injury, fever or use of blood thinners. There is no measurable weakness and has been no trauma. He has been without pain medications or steroid injections but has plans to pursue this. He is given return precautions and questions have been answered to his apparent satisfaction Discharge Plan Departure Patient Disposition: Home Clinical Impression: Chronic left shoulder pain Instructions: Thoracic Back Pain Activity Restrictions/Additional Instructions: *You have been diagnosed with [chronic thoracic and lumbar pain with radiculopathy] *What to do: *Please continue to take your regular medications as directed. [x ] New medication prescriptions sent to your pharmacy: [ [facility]] [ ] New medication written as a paper prescription [ ] No new medications given *Please follow up with your primary care provider in 2-3 days, call for an appointment. Let them know you were seen in the Emergency Department and that we ask that you be seen in follow up. We will electronically transmit a record of today's note if your PCP is in our system *If you do not have a primary care provider please contact the [facility] Resource line at [phone]. They will ask some questions about your medical history and help get you set up with a doctor in the community. *Return to Emergency Department if you should have any new, worsening or concerning symptoms, such as [fever greater than 101 F, shaking chills, worsening pain, persistent vomiting or other bothersome symptoms] You have been prescribed a short course of narcotic medications. These are potentially dangerous and addictive medications that should be used carefully. While on these medications you cannot drive or operate heavy machinery. Additionally, you cannot sign legal documents or perform any duties such as this. Many people get constipated on narcotic medications so it would be advisable to discuss stool softeners with the pharmacist when you bulk picker your prescription. Please understand that we cannot provide further refills of narcotics or controlled substances through the ED and your pain management will need to be through your Primary Care Provider Prescriptions: New oxycodone 5 mg tablet 5 mg PO Q4-6H PRN (Reason: pain) Qty: 10 0RF ketorolac 10 mg tablet 10 mg PO Q6H PRN (Reason: pain) Qty: 14 0RF No Action hydroxyzine pamoate [Vistaril] 25 mg capsule 25 mg PO BID PRN (Reason: pain (scale score 4-6)) Qty: 60 1RF cyclobenzaprine 10 mg tablet 10 mg PO TID PRN (Reason: muscle spasm) Qty: 14 0RF diclofenac sodium 75 mg tablet,delayed release (DR/EC) 75 mg PO BID Qty: 60 2RF tramadol 50 mg tablet 50 mg PO BID PRN (Reason: pain) Qty: 60 1RF docusate sodium 100 mg capsule 100 mg PO BID Qty: 20 0RF cyclobenzaprine 10 mg tablet 10 mg PO TID PRN (Reason: muscle spasm) Qty: 14 0RF hydrocodone-acetaminophen 5-325 mg tablet 1 tab PO Q4-6H PRN (Reason: pain) Qty: 10 0RF gabapentin 300 mg capsule 300 mg PO BEDTIME Qty: 14 0RF methylprednisolone [Medrol (Dejan)] 4 mg tablets,dose pack See Rx Instructions .ROUTE .COMPLEX Qty: 21 0RF Rx Instructions: orally per package directions ketorolac 10 mg tablet 10 mg PO Q6H PRN (Reason: pain) Qty: 14 0RF oxycodone 5 mg tablet 5 mg PO Q4-6H PRN (Reason: pain) Qty: 10 0RF amoxicillin 500 mg capsule 500 mg PO BID Qty: 14 0RF oxycodone 5 mg tablet 5 mg PO Q4-6H PRN (Reason: pain) Qty: 20 0RF lisinopril 40 mg tablet 40 mg PO DAILY amlodipine 5 mg tablet 5 mg PO DAILY Referrals: Katya Stevens MD [Primary Care Provider] - Visit Report Forms: Patient Portal/API
[2021-08-13] MEDS: OXYCODONE/APAP 5/325 PREPACK 1 BOTTLE MISC (04:11)
[2021-08-13] MEDS: KETOROLAC 30 MG/ML VIAL IM (04:11)
== END 2021-08-13 04:18 | disposition home or self-care (01) ==
PROVIDERS: Emergency Provider Emergency Medicine; PCP Internal Medicine
DX: M25.512 Pain in left shoulder (principal); M54.2 Cervicalgia; M54.6 Pain in thoracic spine
CPT/HCPCS: 96372; 99283; J1885

== ENCOUNTER 2023-04-27 14:17 | Emergency (ER) | payer MEDICARE, MEDICAID, SELFPAY ==
[2020-04-08 05:10] VITALS: BMI 26.2
[2023-04-27 14:22] VITALS: BP 206/110; PULSE 103; RESP 22; TEMP 36.6; O2SAT 97; BMI 22.8
--- NOTE | 2023-04-27 14:56 | DI.RAD.S_ITS ---
PROCEDURE: XR RIBS LT MIN 3V W CXR1V INDICATIONS: fall, rib pain TECHNIQUE: 4 views of the ribs were acquired, along with a single view chest. COMPARISON: None. FINDINGS: Surgical changes and devices: None. Bones and chest wall: No fractures or dislocations. No suspicious bony lesions. Overlying soft tissues appear unremarkable. Lungs and pleura: No pleural effusions or pneumothorax. Moderate diffuse reticulonodular pulmonary opacity. Mediastinum: Mediastinal contours appear normal. Heart size is normal. IMPRESSION: 1. Limited examination demonstrating no definite acute fracture. No osseous lesion. If symptoms and/or clinical suspicion for pathology persist, further assessment with repeat, or advanced imaging (e.g., CT, MRI, or bone scan) may be helpful for further assessment. 2. Moderate atypical pneumonia. Dictated by: Karen Hewitt M.D. on 04/27/2023 at 15:50 Approved by: Karen Hewitt M.D. on 04/27/2023 at 15:51
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
[2023-04-27 16:24] VITALS: O2SAT 97
[2023-04-27 16:25] VITALS: BP 196/102; PULSE 90; O2SAT 98
[2023-04-27 16:29] VITALS: TEMP 36.9; O2SAT 98
[2023-04-27] MEDS: IBUPROFEN 400 MG TABLET 800 MG PO (16:36)
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
== END 2023-04-27 16:42 | disposition home or self-care (01) ==
PROVIDERS: Emergency Provider Emergency Medicine; PCP Internal Medicine
DX: J18.9 Pneumonia, unspecified organism (principal); R07.89 Other chest pain; S81.801A Unspecified open wound, right lower leg, initial encounter; W01.0XXA Fall on same level from slipping, tripping and stumbling without subsequent striking against object, initial encounter; Z87.891 Personal history of nicotine dependence
CPT/HCPCS: 71101; 99283